=== PATIENT | female | born 1960 | race Caucasian/White ===

== ENCOUNTER 2016-03-08 13:56 | Emergency (ER) | payer BC ==
[2016-03-08 14:41] VITALS: BP 122/80
--- NOTE | 2016-03-08 15:04 | UC ---
Lower Extremity/Ankle HPI - HPI Summary HPI Summary: Pain, redness, swelling, and drainage around the nail of L 1st toe starting about a week ago. Thinks she trimmed the nail too closely. - History of Current Complaint Chief Complaint: UCLowerExtremity Stated Complaint: FOOT COMPLAINT Time Seen by Provider: 03/08/16 14:48 Hx Obtained From: Patient ?: No Onset/Duration: Gradual Onset, Lasting Hours Severity Initially: Mild Severity Currently: Moderate Aggravating Factor(s): Standing, Ambulation Alleviating Factor(s): Rest Able to Bear Weight: Yes - Allergies/Home Medications Allergies/Adverse Reactions: Allergies Allergy/AdvReac Type Severity Reaction Status Date / Time Lisinopril Allergy Dizziness Verified 09/15/15 11:49 PMH/Surg Hx/FS Hx/Imm Hx Endocrine History Of: Reports: Diabetes - For about 23 years. Denies: Thyroid Disease, Hyperthyroidism, Hypothyroidism, Dyslipidemia Cardiovascular History Of: Reports: Hypertension - x 5-6 years Denies: Cardiac Disorders, Pacemaker/ICD, Myocardial Infarction, Congestive Heart Failure, Atrial Fibrillation, Deep Vein Thrombosis, Bleeding Disorders Respiratory History Of: Reports: COPD, Bronchitis, Pneumonia - ~ 5x Denies: Asthma, Pulmonary Embolism GI/ History Of: Reports: Renal Disease - DIALYSIS PATIENT for about 2 weeks 3 years ago. She has "weak kidneys." Denies: Gastroesophageal Reflux, Ulcer, Gastrointestinal Bleed, Gall Bladder Disease, Kidney Stones, Diverticulitis, Urosepsis Neurological History Of: Denies: CVA, Dementia, Seizures Psychological History Of: Denies: Anxiety, Depression, Bipolar Disorder, Schizophrenia, Post Traumatic Stress Disorder Cancer History Of: Denies: Lung Cancer, Colorectal Cancer, Breast Cancer, Prostate Cancer, Cervical Cancer Other History Of: Negative For: HIV, Hepatitis B, Hepatitis C, Anticoagulant Therapy - Surgical History Surgical History: Yes Surgery Procedure, Year, and Place: csection ~20 yrs ago at [facility] [place] - Family History Known Family History: Positive: Cardiac Disease, Hypertension - Father has "disease." Negative: Renal Disease - Social History Lives: With Family Alcohol Use: None Substance Use Type: None Smoking Status (MU): Former Smoker When Did the Patient Quit Smoking/Using Tobacco: 1999 - Immunization History Most Recent Tetanus Shot: ~20 yrs ago Review of Systems Constitutional: Negative Skin: Other - redness, drainage Eyes: Negative ENT: Negative Respiratory: Negative Cardiovascular: Negative Gastrointestinal: Negative Genitourinary: Negative Motor: Negative Neurovascular: Negative Musculoskeletal: Negative Neurological: Negative Psychological: Negative All Other Systems Reviewed And Are Negative: Yes Physical Exam Triage Information Reviewed: Yes Appearance: Well-Appearing, Obese Vital Signs: Initial Vital Signs Temp 96.4 F 03/08/16 14:37 Pulse 94 03/08/16 14:37 Resp 18 03/08/16 14:37 BP 122/80 03/08/16 14:37 Pulse Ox 95 03/08/16 14:37 Vital Signs Reviewed: Yes Eye Exam: Normal Eyes: Positive: Conjunctiva Clear ENT Exam: Normal ENT: Positive: Normal ENT inspection, Hearing grossly normal, Pharynx normal, TMs normal Neck exam: Normal Respiratory Exam: Normal Respiratory: Positive: Chest non-tender, Lungs clear, Normal breath sounds, No respiratory distress, No accessory muscle use Cardiovascular: Positive: Pulses Normal, Murmur:Sys:Grade _?_/ - II Musculoskeletal: Positive: Strength Intact, ROM Intact, Edema @ - L great toe Neurological Exam: Normal Psychological Exam: Normal Skin Exam: Other - swelling, redness L great toe and onto foot. No streaking. Crusted drainage at nail margins. Lower Extremity Course/Dx - Differential Dx/Diagnosis Provider Diagnoses: L ingrown toenail. L great toe cellulitis Discharge - Discharge Plan Condition: Stable Disposition: HOME Prescriptions: DOXYcycline CAP(*) [DOXYcycline 100MG CAP(*)] 100 mg PO BID #20 cap Patient Education Materials: Ingrown Nail (ED), Cellulitis (ED) Referrals: Devyn Carson DPM [Doctor of Podiatric Medicine] - Additional Instructions: Do epsom salts soaks 4-5 times per day and take the antibiotic as prescribed. It is extremely important you have close follow up next week either with your primary care provider or a special assets officer. Foot infections in people with diabetes can lead to severe complications such as hospitalization, sepsis (blood infection), and amputation of toes or even whole feet.
== END 2016-03-08 15:06 | disposition home or self-care (01) ==
LOC: UCEAST 13:56
DX: L60.0 Ingrowing nail (principal); L03.032 Cellulitis of left toe; Z88.8 Allergy status to other drugs, medicaments and biological substances; Z87.891 Personal history of nicotine dependence
CPT/HCPCS: 99211; G0463

== ENCOUNTER 2016-05-08 08:48 | Inpatient (IN) | payer BC, MEDICARE ==
--- NOTE | 2016-05-08 09:49 | RAD ---
INDICATION: Shortness of breath. COMPARISON: Most recent comparison chest x-rays dated September 08, 2015 TECHNIQUE: Single AP portable view of the chest was obtained. FINDINGS: Image quality is compromised due to the relative inferiority of a portable chest x-ray. There is mild cardiomegaly and coarse atherosclerotic calcification overlying the arch of the aorta unchanged from the previous chest x-ray. There is mild engorgement of the pulmonary arterial vasculature. The lungs are grossly clear. There is no evidence of a large pleural effusion. Visualized bones are normal for the patient's age. IMPRESSION: In the correct clinical setting these findings could be compatible with exacerbation of cardiogenic pulmonary edema.
[2016-05-08] MEDS ORDERED: NS 0.9% 1000 ML* 1,000 ML IV ONE (10:03)
[2016-05-08] MEDS: Albuterol/Ipratropium NEB.SOL* Albuterol 2.5 MG/Ipratropium 0.5 MG 3 ML INH SCH ×5 (10:13→23:21)
[2016-05-08 10:28] LABS: Hematocrit 34 % (35-47); Hemoglobin 10.6 g/dl (12.0-16.0); Mean Corpuscular HGB Conc 31 g/dl (31-36); Mean Corpuscular Hemoglobin 30 pg (27-31); Mean Corpuscular Volume 97 fL (80-97); Mean Platelet Volume 8 um3 (7.4-10.4); Red Blood Count 3.48 10^6/ul (4.0-5.4); Red Cell Distribution Width 16 % (10.5-15); White Blood Count 11.1 10^3/ul (3.5-10.8)
[2016-05-08 10:29] LABS: Add Diff/Slide Review? Slide Review Added; Comments Flag Yes
[2016-05-08 10:45] LABS: Albumin 3.4 g/dL (3.2-5.2); BUN/Creatinine Ratio 30.2 (8-20); EGFR African American 22.1 (>60); EGFR Non-African American 17.2 (>60); Globulin 3.9 g/dL (2-4); Potassium 4.4 mmol/L (3.5-5.0); Total Bilirubin 0.4 mg/dL (0.2-1.0); Total Protein 7.3 g/dL (6.4-8.9)
[2016-05-08 11:02] LABS: Troponin I 0.1 ng/mL (<0.04)
[2016-05-08] MEDS ORDERED: Aspirin TAB* 325 MG PO ONE (11:05)
[2016-05-08 12:26] LABS: Eosinophils % 1 % (0-6); Immature Granulocytes 2 % (0-9); Neutrophil % 70 % (38-83); RBC Morphology Normal (Normal)
[2016-05-08] MEDS ORDERED: Dextrose 50% Syringe 50 ML* 25 GM/50 ML SYRINGE IV PUSH PRN (12:44)
[2016-05-08] MEDS ORDERED: Albuterol 2.5 MG/3 ML NEB.SOL* (0.083%) INH PRN (12:44)
[2016-05-08] MEDS ORDERED: Acetaminophen TAB* 325 MG PO PRN (12:44)
[2016-05-08] MEDS ORDERED: NS 0.9% 1000 ML* 1,000 ML IV SCH (12:45)
[2016-05-08] MEDS ORDERED: Ondansetron INJ* 2 MG/ML VIAL IV PRN (13:00)
[2016-05-08 13:19] LABS: EGFR African American 23.3 (>60); EGFR Non-African American 18.1 (>60)
[2016-05-08 13:26] LABS: Troponin I 0.08 ng/mL (<0.04)
[2016-05-08] MEDS: cefTRIAXone VIAL(*) 1,000 MG in NS 0.9% 50 ML* 50 ML IVPB SCH (14:07)
[2016-05-08] MEDS: predniSONE TAB* 20 MG PO SCH (14:11)
[2016-05-08] MEDS: Heparin VIAL(*) 5000 UNITS/ML VIAL (FIVE THOUSAND) SUBCUT SCH ×2 (14:11→21:32)
--- NOTE | 2016-05-08 14:39 | HP ---
HISTORY AND PHYSICAL: DATE OF ADMISSION: 05/08/16 PRIMARY CARE PHYSICIAN: Dr. Abraham. ATTENDING PHYSICIAN WHILE IN THE HOSPITAL: Kathie Bhatt DO* (report dictated by Dk Jay NP). CHIEF COMPLAINT: 1. Cough. 2. Shortness of breath. HISTORY OF PRESENT ILLNESS: Ms. Mantilla is a 56-year-old female patient who comes into the ER today with complaints of shortness of breath, stating that she has not been feeling well over the last 2 to 3 days. She states her breathing has been getting worse. She states she has had some chills. She states she has been coughing, first started out as a dry cough and now she is noticing the cough sounds more full to her, that is what she says, and she feel like her lungs are filling with fluid. She states her was sick with similar symptoms and so was her daughter, both of which she has been around. She states that it hurts to take a deep breath, hurts to cough, particularly in her chest and she states she has been short of breath with exertion. She denied any swelling or edema in the lower extremities and she states to her knowledge her weight has not really changed, although she does not weigh herself daily and she states that she does not have any orthopnea. She can lie flat and sleep at night. It is when she gets up to do something, she is feeling short of breath and she has been coughing. She could hear rattle in her chest and she was concerned and decided to come into the ER today as she was worried that she may have an infection or pneumonia. The patient was evaluated in the ER by Dr. Valadez. There was concern due to her respiratory status she was requiring 3 L of oxygen. Hospitalist service was asked to evaluate for admission. PAST MEDICAL HISTORY: Significant for: 1. Hypertension. 2. Diabetes. 3. CKD. 4. COPD. PAST SURGICAL HISTORY: She has had a dialysis catheter placed in the past. She had a history of and she had the dialysis catheter removed. HOME MEDICATIONS: According to the list from the pharmacy include: 1. Glipizide 10 mg p.o. b.i.d. 2. Catapres 0.1 mg p.o. b.i.d. 3. Demadex 100 mg p.o. b.i.d. 4. Actos 45 mg daily. 5. Lopressor 100 mg p.o. b.i.d. 6. Vitamin D2, 50,000 units p.o. weekly. 7. Lipitor 20 mg daily. 8. Amitriptyline 25 mg p.o. at bedtime. ALLERGIES TO MEDICATIONS: Include LISINOPRIL. FAMILY HISTORY: Mother had pancreatic cancer. Father had a history of MS. SOCIAL HISTORY: She is a former smoker, she quit about 7 years ago, she was a pack a day smoker. She does not drink alcohol. She has 1 child. Surrogate decision maker is her . REVIEW OF SYSTEMS: There is no documented fever. She denied any significant weight change. There was no double vision. There was no ear discharge. She denies having any rhinorrhea. There was a sore throat, but she does not have that now. She denies having any chest pain with the exception when she takes a deep breath. She does admit to dyspnea on exertion. There was no orthopnea. No nocturnal dyspnea. There was no abdominal pain. There was no nausea. No vomiting. No dysuria. No frequency. She denies having any loss of consciousness, no pruritus, had no skin ulcerations. Review of 14 systems completed, all others negative. PHYSICAL EXAMINATION GENERAL: At this time, Ms. Mantilla is a 56-year-old female patient. She is morbidly obese. She is sitting on the edge of the ER stretcher. She does not appear to be in any acute distress. VITAL SIGNS: Blood pressure 109/86, pulse of 90, respirations were 20, O2 sat was 98% on 3 L, temperature 97.6. HEENT: Head is atraumatic, normocephalic. Eyes: EOMs are intact. Sclerae anicteric, not pale. Throat: Oral mucosa appears to be dry. No oropharyngeal erythema. NECK: Supple. LUNGS: She had wheezing noted throughout. She had rhonchi in the upper lobe. She had equal diaphragmatic expansion. HEART: Sounds S1, S2. Regular rate and rhythm. No murmurs, rubs or gallops. ABDOMEN: Soft, flat, nontender. Bowel sounds present. EXTREMITIES: Pulses were 2+ throughout. She had no pitting edema noted. NEUROLOGIC: She is awake, alert. She is oriented x3. Speech is clear. No facial drooping. No gross focal deficits. SKIN: Intact. DIAGNOSTIC STUDIES/LABORATORY DATA: Labs today revealed WBC 11.1, RBC of 3.48 , hemoglobin 10.6, hematocrit 34, platelet count of 256. Sodium was 134, potassium 4.4, chloride of 101, bicarb 25, BUN was 86, creatinine was 2.85 which is right near her baseline from September 2015. Glucose 112, lactic 1.1, calcium 9.0, total bili 0.4, AST 32, ALT 24, alk phos 109. Her troponin was 0.10. Her last troponin was from 2015 and was 0.05. Her BNP was 454, it has been higher in the past. Her albumin was 3.4. Serology was negative for flu. She did have an EKG obtained initially showed a normal sinus rhythm with the rate of 75. No ST elevations or T- wave inversions. A repeat EKG shows a normal sinus rhythm, rate of 101, but she does have PACs after every other beat , but does not appear to be atrial fibrillation. There was a chest x-ray obtained today and on my review, I do not appreciate any obvious infiltrate. There may be some pulmonary edema. Radiology read it as in the correct clinical setting, these findings could be compatible with exacerbation of cardiogenic pulmonary edema. Old medical records were reviewed. ASSESSMENT AND PLAN: Ms. Mantilla is a 56-year-old female patient coming into the ER today with complaints of cold symptoms going on the last couple of days, now getting progressively worse with shortness of breath. She will be admitted under observation status for: 1. Chronic obstructive pulmonary disease exacerbation. I suspect that this is chronic obstructive pulmonary disease exacerbation. I do not think this is pulmonary edema. She has had 2 recent sick contacts. She is wheezing throughout. She has a history of chronic obstructive pulmonary disease and history of smoking. My plan is to go ahead and put her on DuoNeb round the clock , albuterol p.r.n., Dulera, steroids. Put her on azithromycin and ceftriaxone. I will get a legionella urine antigen and strep pneumoniae urine antigen and sputum culture and I have ordered flutter valve for pulmonary toileting. 2. Hypertension. Her blood pressure down here is in the soft side, it is 109/ 86, so I am going to hold the clonidine and cut her metoprolol dose in half and we can slowly reintroduce this and we will follow. 3. Diabetes. She will be on lispro sliding scale. 4. History of lower extremity edema. She takes Demadex but she states she takes it as needed, so we will go ahead and diurese her if need be, but I think she needs a little bit of fluid now. She is on the dry side. 5. Chronic kidney disease. Her creatinine appears to be at baseline. We will monitor this and try to avoid nephrotoxic agents. 6. DVT prophylaxis. She is high risk. She will be placed on heparin subcu. 7. Code status. Full code. 8. Fluids, nutrition. She can have a consistent carb diet. TIME SPENT: Time spent on admission, 60 minutes, greater than half the time was spent [id number] with the patient obtaining my history and physical, other half of the time spent going over the plan of care with the patient and implementing plan of care. I did discuss the plan of care with my attending, Dr. Bhatt, she is in agreement. DK JAY NP CC: Dr. Abraham * [id number]/CPS #: [id number] XIMENA
[2016-05-08] MEDS: Azithromycin IV(*) 500 MG in NS 0.9% 250 ML* 250 ML IVPB SCH (15:40)
[2016-05-08] MEDS: Insulin LISPRO* 1 UNITS UNIT SUBCUT SCH (16:57)
[2016-05-08] MEDS: Mometasone/Formoter 200/5 MDI INH SCH (20:04)
[2016-05-08 20:56] LABS: Urine Bacteria 1+ (Absent); Urine Bilirubin Negative (Negative); Urine Glucose Negative (Negative); Urine Nitrite Negative (Negative)
[2016-05-08] MEDS: Amitriptyline TAB* 25 MG PO SCH (20:57)
[2016-05-08] MEDS: Metoprolol Tartrate TAB* 50 mg PO SCH (20:57)
[2016-05-09] MEDS: Nystatin TOP POWDER* 15 GM BTL TOPICAL SCH ×5 (00:44→20:43)
[2016-05-09] MEDS: Albuterol/Ipratropium NEB.SOL* Albuterol 2.5 MG/Ipratropium 0.5 MG 3 ML INH SCH ×3 (03:17→14:08)
[2016-05-09 06:08] LABS: Hematocrit 32 % (35-47); Hemoglobin 10.2 g/dl (12.0-16.0); Mean Corpuscular HGB Conc 31 g/dl (31-36); Mean Corpuscular Hemoglobin 30 pg (27-31); Mean Corpuscular Volume 96 fL (80-97); Mean Platelet Volume 8 um3 (7.4-10.4); Red Blood Count 3.36 10^6/ul (4.0-5.4); Red Cell Distribution Width 15 % (10.5-15); White Blood Count 12.2 10^3/ul (3.5-10.8)
[2016-05-09 06:09] LABS: Add Diff/Slide Review? Slide Review Added; Comments Flag Yes
[2016-05-09] MEDS: Heparin VIAL(*) 5000 UNITS/ML VIAL (FIVE THOUSAND) SUBCUT SCH ×3 (06:21→20:45)
[2016-05-09 06:25] LABS: BUN/Creatinine Ratio 32.8 (8-20); Calcium 8.8 mg/dL (8.6-10.3); EGFR African American 26.8 (>60); EGFR Non-African American 20.9 (>60); Potassium 4.4 mmol/L (3.5-5.0)
[2016-05-09] MEDS: Atorvastatin* 20 MG TAB PO SCH (08:13)
[2016-05-09] MEDS: Metoprolol Tartrate TAB* 50 mg PO SCH (08:13)
[2016-05-09] MEDS: Aspirin EC Low Dose* 81 MG TAB.EC PO SCH (08:13)
[2016-05-09] MEDS: Mometasone/Formoter 200/5 MDI INH SCH ×2 (08:14→20:12)
[2016-05-09] MEDS: predniSONE TAB* 20 MG PO SCH (08:14)
[2016-05-09] MEDS: Insulin LISPRO* 1 UNITS UNIT SUBCUT SCH ×3 (08:14→18:00)
[2016-05-09] MEDS: cefTRIAXone VIAL(*) 1,000 MG in NS 0.9% 50 ML* 50 ML IVPB SCH (13:14)
--- NOTE | 2016-05-09 14:10 | PN ---
Subjective Date of Service: 05/09/16 Interval History: Patient seen this morning. Says she is feeling much better. SOB has improved but not quite gone. Cough is better. Denies any wheezing. As per nursing she desaturated when ambulating while on O2. Only requires 1L at rest. Family History: Unchanged from Admission Social History: Unchanged from Admission Past Medical History: Unchanged from Admission Objective Active Medications: Acetaminophen (Tylenol Tab*) 650 mg PO Q4H PRN Albuterol (Ventolin 2.5 Mg/3 Ml Neb.Daja*) 2.5 mg INH Q2H PRN Albuterol/Ipratropium (Duoneb (Albuterol 2.5 Mg/Ipratropium 0.5 Mg)) 1 neb INH [id number] AWAKE ASHER Amitriptyline HCl (Elavil Tab*) 25 mg PO BEDTIME ASHER Aspirin (Aspirin Ec Low Dose*) 81 mg PO DAILY [facility] Atorvastatin Calcium (Lipitor*) 20 mg PO DAILY [facility] Dextrose (D50w Syringe 50 Ml*) 12.5 gm IV PUSH .FOR FS < 60 - SS PRN Heparin Sodium (Porcine) (Heparin Vial(*)) 5,000 units SUBCUT Q8HR [facility] Sodium Chloride (Ns 0.9% 1000 Ml*) 1,000 mls @ 100 mls/hr IV PER RATE [facility] Ceftriaxone Sodium 1,000 mg/ (Sodium Chloride) 50 mls @ 200 mls/hr IVPB Q24H [facility] Azithromycin 500 mg/ Sodium (Chloride) 250 mls @ 250 mls/hr IVPB Q24H [facility] Insulin Human Lispro (Humalog*) 0 units SUBCUT AC [facility] Metoprolol Tartrate (Lopressor Tab*) 50 mg PO Q12HR [facility] Mometasone Furoate/Formoterol Fumar (Dulera 200/5 Mdi*) 2 puff INH BID A[facility] Nystatin (Nystatin Top Powder*) 1 applic TOPICAL TID [facility] Ondansetron HCl (Zofran Inj*) 4 mg IV Q6H PRN Prednisone (Deltasone Tab*) 40 mg PO DAILY [facility] Vital Signs 05/08/16 05/08/16 05/08/16 15:28 16:00 16:42 Temperature 97.7 F Pulse Rate 129 93 86 Respiratory 17 16 Rate Blood Pressure 138/28 131/35 (mmHg) O2 Sat by Pulse 96 96 93 Oximetry 05/09/16 05/09/16 05/09/16 03:17 04:10 07:26 Temperature 97.7 F 97.8 F Pulse Rate 75 89 72 Respiratory 16 20 20 Rate Blood Pressure 158/75 149/69 (mmHg) O2 Sat by Pulse 99 95 100 Oximetry Oxygen Devices in Use Now: Nasal Cannula - 1L Appearance: Middle-aged, morbidly obese, F, sitting in bed in NAD Eyes: No Scleral Icterus Ears/Nose/Mouth/Throat: Mucous Membranes Moist Neck: NL Appearance and Movements; NL JVP Respiratory: Symmetrical Chest Expansion and Respiratory Effort, - - Moderate air movement, trace rales in bases, minimal wheezing Cardiovascular: NL Sounds; No Murmurs; No JVD, RRR Abdominal: NL Sounds; No Tenderness; No Distention Lymphatic: No Cervical Adenopathy Extremities: - - B/L LE edema Skin: No Rash or Ulcers Neurological: Alert and Oriented x 3 Result Diagrams: 05/09/16 05:34 05/09/16 05:34 Microbiology and Other Data: Microbiology 05/08/16 20:30 Legionella Urinary Antigen - Final Urine Negative Legionella Streptococcus pneumoniae Ag Screen - Final Negative S. pneumo Antigen Assess/Plan/Problems-Billing Assessment: COPD exacerbation in a 56 yo F with hx of COPD, HTN, DM, CKD - Patient Problems (1) COPD exacerbation Current Visit: Yes Comment: Continue prednisone, nebs, inhalers. Will continue CTX/Azithrmycin for now, procalcitonin is mildly elevated. Wean oxygen. (2) HTN (hypertension) Current Visit: Yes Comment: Resume home doses of Metoprolol and Clonidine (3) Diabetes Current Visit: Yes Comment: HISS (4) Edema Current Visit: Yes Comment: Hold torsemide for now, will stop IVF (5) CKD (chronic kidney disease) Current Visit: Yes Comment: At baseline (6) DVT prophylaxis Current Visit: Yes Comment: Heparin Status and Disposition: Inpatient
[2016-05-09] MEDS: Azithromycin IV(*) 500 MG in NS 0.9% 250 ML* 250 ML IVPB SCH (14:55)
[2016-05-09] MEDS ORDERED: Spiriva Inhaler DEVICE* 1 EACH DEVICE INH ONE (15:00)
[2016-05-09] MEDS: Ropinirole TAB* 0.5 MG TAB PO SCH ×2 (16:55→20:42)
[2016-05-09] MEDS: DOXYcycline CAP(*) 100 MG PO SCH (20:41)
[2016-05-09] MEDS: cloNIDine TAB* 0.1 MG PO SCH (20:41)
[2016-05-09] MEDS: Amitriptyline TAB* 25 MG PO SCH (20:41)
[2016-05-09] MEDS: Metoprolol Tartrate TAB* 100 MG TAB PO SCH (20:42)
[2016-05-09] MEDS: BABY TOPICAL SCH (20:52)
[2016-05-10] MEDS: Heparin VIAL(*) 5000 UNITS/ML VIAL (FIVE THOUSAND) SUBCUT SCH (05:51)
[2016-05-10] MEDS: Mometasone/Formoter 200/5 MDI INH SCH (08:04)
[2016-05-10] MEDS ORDERED: predniSONE TAB* 20 MG PO SCH (09:00)
[2016-05-10] MEDS ORDERED: Tiotropium CAP.INH* CAP.INH/18 MCG INH SCH (09:00)
[2016-05-10] MEDS: DOXYcycline CAP(*) 100 MG PO SCH (09:34)
[2016-05-10] MEDS: Insulin LISPRO* 1 UNITS UNIT SUBCUT SCH (09:34)
[2016-05-10] MEDS: Atorvastatin* 20 MG TAB PO SCH (09:35)
[2016-05-10] MEDS: cloNIDine TAB* 0.1 MG PO SCH (09:35)
[2016-05-10] MEDS: Metoprolol Tartrate TAB* 100 MG TAB PO SCH (09:35)
[2016-05-10] MEDS: Aspirin EC Low Dose* 81 MG TAB.EC PO SCH (09:35)
[2016-05-10] MEDS: Ropinirole TAB* 0.5 MG TAB PO SCH (09:35)
[2016-05-10] MEDS: Nystatin TOP POWDER* 15 GM BTL TOPICAL SCH (09:36)
[2016-05-10] MEDS: BABY TOPICAL SCH (09:36)
[2016-05-10 10:57] VITALS: BP 145/56
--- NOTE | 2016-05-10 10:59 | DCNOTE ---
Patient feeling well this morning. No wheezing, denies SOB, still cough. Desaturated when ambulating but no dyspnea. On exam, lungs CTA B/L, obese, soft, NTND, BS, RRR, s1 and s2 present, no m/g/r , chronic LE edema Will discharge home today with ABX, COPD medications, steroids and home O2. Will need to f/u with PCP.
--- NOTE | 2016-05-11 04:27 | DS ---
CC: Dr. Abraham DISCHARGE SUMMARY: DATE OF ADMISSION: 05/08/16 DATE OF DISCHARGE: 05/10/16 PCP: Dr. Abraham. PRINCIPAL DISCHARGE DIAGNOSES: 1. Chronic obstructive pulmonary disease exacerbation. 2. Community-acquired pneumonia. SECONDARY DIAGNOSES: 1. Hypertension. 2. Diabetes. 3. Chronic kidney disease. DISCHARGE MEDICATION REGIMEN: 1. Albuterol 1 puff inhaled every 4 hours as needed for shortness of breath or wheezing. 2. Cefpodoxime 200 mg by mouth 2 times daily. 3. Doxycycline 100 mg by mouth 2 times daily. 4. Advair 1 puff inhaled 2 times daily. 5. Spiriva 1 capsule inhaled daily. 6. Prednisone 40 mg by mouth daily. 7. Actos 45 mg by mouth daily. 8. Clonidine 0.1 mg by mouth 2 times daily. 9. Atorvastatin 20 mg by mouth daily. 10. Metoprolol tartrate 100 mg by mouth 2 times daily. 11. Glipizide 10 mg by mouth 2 times daily. 12. Amitriptyline 25 mg by mouth at bedtime. 13. Torsemide as prescribed by PCP. 14. Vitamin D2 50,000 units by mouth weekly. STUDIES DONE DURING THE HOSPITALIZATION: Chest x-ray, impression: In the correct clinical setting, findings could be compatible with exacerbation of cardiogenic pulmonary edema. HPI AND HOSPITAL SUMMARY: Please refer to the full history and physical by David Jay NP, for f ull details. Briefly, Ms. Mantilla is a 56-year-old female who presents to the hospital with shortn ess of breath, cough, and chills. On evaluation, the patient was hypoxic and had significant wheezi ng. She had a mild leukocytosis and she was started on antibiotics, steroids, and nebulizers. She had rapid improvement in the symptoms by the following day. She states that her wheezing and shortn ess of breath had fully resolved though had a mild cough. However, she still required a small amount of oxygen and desaturated during ambulation. The following day, she continued to require low level of oxygen with ambulation. She will be discharged home on oxygen, which she states she has been on in the past. She will be discharged home with oral prednisone, oral antibiotics, and new prescript ions for Advair, Spiriva, and albuterol inhaler. The patient will need to follow up with her PCP as an outpatient. TIME SPENT: Total time spent on this discharge 40 minutes. This is the summary of the hospitalization, please see the full medical record for further details. [id number]/[facility] #: [id number]
--- NOTE | 2016-05-11 15:38 | ED ---
Flakito Smith Adam, scribed for Jacob Valadez MD on 05/08/16 at 0932 . Respiratory - HPI Summary HPI Summary: Pt is a 56 year old female presenting with SOB and cough. She states that she started coughing 5 days ago with a dry cough. Over the next couple of days she began to have MARI. The cough has since loosened up but it is still unproductive ; she feels like there is a lot of mucus going down her throat. Pt also c/o chills, generalized myalgia, diarrhea, and sore throat. She reports decreased PO intake over the past 5 days as well. She denies fever, edema, and CP. Her with whom she lives recently had PNA. - History of Current Complaint Chief Complaint: EDShortnessOfBreath Stated Complaint: COUGH /FLU LIKE SYMPTOMS Time Seen by Provider: 05/08/16 09:23 Hx Obtained From: Patient Onset/Duration: Gradual Onset, Lasting Days, Still Present Timing: Constant Initial Severity: Moderate Current Severity: Moderate Pain Intensity: 0 Character: Cough (Nonproductive) Sputum Amount: None Aggravating Factor(s): Exertion Alleviating Factor(s): Nothing Associated Signs and Symptoms: SOB, Chills - Allergy/Home Medications Allergies/Adverse Reactions: Allergies Allergy/AdvReac Type Severity Reaction Status Date / Time Lisinopril Allergy Dizziness Verified 09/15/15 11:49 PMH/Surg Hx/FS Hx/Imm Hx Endocrine/Hematology History: Reports: Hx Diabetes - For about 23 years. Denies: Hx Anticoagulant Therapy, Hx Blood Disorders, Hx Blood Transfusions, Hx Bone Marrow Disease, Hx Systemic Lupus Erythematosus, Hx Sickle Cell Disease , Hx Thyroid Disease, Hx Anemia, Hx Unexplained Bleeding, Other Endocrine/ Hematological Disorders Cardiovascular History: Reports: Hx Hypertension - x 5-6 years Denies: Hx Aneurysm, Hx Angina, Hx Angioplasty, Hx Auto Implanted Cardiovert Defib, Hx Cardiac Arrest, Hx Cardiomegaly, Hx Congenital Heart Disease, Hx Congestive Heart Failure, Hx Coronary Artery Disease, Hx Deep Vein Thrombosis, Hx Hypercholesterolemia, Hx Hypotension, Hx Myocardial Infarction, Hx Pacemaker/ ICD, Hx Peripheral Vascular Disease, Hx Rheumatic Fever, Hx Syncope, Hx Valvular Heart Disease, Other Cardiovascular Problems/Disorders Respiratory History: Reports: Hx Chronic Obstructive Pulmonary Disease (COPD), Hx Pneumonia - ~ 5x, Hx Sleep Apnea Denies: Hx Asthma, Hx Chronic Bronchitis, Hx Cystic Fibrosis, Hx Lung Cancer , Hx Pleural Effusion, Hx Pulmonary Edema, Hx Pulmonary Embolism, Hx Seasonal Allergies, Other Respiratory Problems/Disorders - copd GI History: Denies: Hx Cirrhosis, Hx Crohn's Disease, Hx Gall Bladder Disease, Hx Gastroesophageal Reflux Disease, Hx Gastrointestinal Bleed, Hx Hiatal Hernia, Hx Irritable Bowel, Hx Jaundice, Hx Ulcer, Hx Urosepsis, Other GI Disorders History: Reports: Hx Chronic Renal Failure - not per patient, per H+P, Hx Renal Disease - DIALYSIS PATIENT for about 2 weeks 3 years ago. She has "weak kidneys." Denies: Hx Acute Renal Failure - current dx, Hx Benign Prostatic Hyperplasia , Hx Dialysis, Hx Kidney Infection, Hx Kidney Stones, Other Problems/ Disorders Musculoskeletal History: Reports: Hx Back Problems, Hx Scoliosis, Other Musculoskeletal History - Degenerative Disc Disease Denies: Hx Arthritis, Hx Bursitis, Hx Congenital Bone Abnormalities, Hx Fibromyalgia, Hx Gout, Hx Orthopedic Injury, Hx Osteoporosis, Hx Tendonitis Sensory History: Reports: Hx Contacts or Glasses Denies: Hx Cataracts, Hx Eye Injury, Hx Eye Prosthesis, Hx Glaucoma, Hx Macular Degeneration, Hx Vision Problem, Hx Deafness, Hx Hearing Aid, Hx Hearing Problem, Other Sensory Impairments Opthamlomology History: Reports: Hx Contacts or Glasses Denies: Hx Cataracts, Hx Eye Injury, Hx Eye Prosthesis, Hx Glaucoma, Hx Macular Degeneration, Hx Vision Problem, Other Sensory Impairments Neurological History: Denies: Hx Dementia, Hx Seizures Psychiatric History: Denies: Hx Anxiety, Hx Depression, Hx Schizophrenia, Hx Bipolar Disorder, Hx Substance Abuse - Cancer History Hx Chemotherapy: No - Surgical History Surgery Procedure, Year, and Place: csection ~20 yrs ago at [facility] Hx Anesthesia Reactions: No Infectious Disease History: No Infectious Disease History: Denies: Hx Clostridium Difficile, Hx Hepatitis, Hx Human Immunodeficiency Virus (HIV), Hx of Known/Suspected MRSA, Hx Shingles, Hx Tuberculosis, Hx Known/ Suspected VRE, Hx Known/Suspected VRSA, History Other Infectious Disease, Traveled Outside the [place] in Last 30 Days - Family History Known Family History: Positive: Cardiac Disease, Hypertension - Father has "disease." Negative: Renal Disease - Social History Occupation: Unemployed Lives: With Family - Alcohol Use: None Hx Substance Use: No Substance Use Type: Reports: None Hx Tobacco Use: Yes Smoking Status (MU): Former Smoker Review of Systems Positive: Chills. Negative: Fever Negative: Erythema Positive: Sore Throat Negative: Chest Pain Positive: Shortness Of Breath, Cough Positive: Diarrhea, Other - Decreased PO intake. Negative: Abdominal Pain, Vomiting, Nausea Negative: dysuria, hematuria Positive: Myalgia - Generalized. Negative: Edema Negative: Rash All Other Systems Reviewed And Are Negative: Yes Physical Exam - Summary Physical Exam Summary: Constitutional: Well-developed, Well-nourished, Alert. (-) Distressed Skin: Warm, Dry HENT: Normocephalic; Atraumatic Eyes: Conjunctiva normal Neck: Musculoskeletal ROM normal neck. (-) JVD, (-) Stridor, (-) Tracheal deviation Cardio: Rhythm regular, rate normal, Heart sounds normal; Intact distal pulses; The pedal pulses are 2+ and symmetric. Radial pulses are 2+ and symmetric. (-) Murmur Pulmonary/Chest wall: Wheezes and rhonchi. Rhonchi worse in the left lower lung field. Abd: Soft, (-) Tenderness, (-) Distension, (-) Guarding, (-) Rebound Musculoskeletal: (-) Edema Lymph: (-) Cervical adenopathy Neuro: Alert, Oriented x3 Psych: Mood and affect Normal Triage Information Reviewed: Yes Vital Signs On Initial Exam: Initial Vitals Temp Pulse Resp BP Pulse Ox 97.6 F 91 20 156/42 90 05/08/16 08:50 05/08/16 08:50 05/08/16 08:50 05/08/16 08:50 05/08/16 08:50 Vital Signs Reviewed: Yes Diagnostics - Vital Signs Vital Signs Temp Pulse Resp BP Pulse Ox 05/08/16 08:50 97.6 F 91 20 156/42 90 - Laboratory Result Diagrams: 05/08/16 10:00 05/08/16 10:00 Lab Statement: Any lab studies that have been ordered have been reviewed, and results considered in the medical decision making process. - Radiology CXR Radiology Interpretation Completed By: Radiologist - IMPRESSION: In the correct clinical setting these findings could be compatible with exacerbation of cardiogenic pulmonary edema. - EKG 09:45 Cardiac Rate: NL - 75 BPM EKG Rhythm: Sinus Rhythm EKG Interpretation: No STEMI - Additional Comments Diagnostic Additional Comments: Troponin I - 0.10 Influenza A (Rapid) - Negative Influenza B (Rapid) - Negative Disposition - Course Course Of Treatment: Believe elevated troponin to be related to influenza or CHF rather than acute [place]. - Diagnoses Provider Diagnoses: Congestive heart failure, Elevated troponin - Physician Notifications Discussed Care Of Patient With: Hospitalist at 11:13. Patient will be admitted. Discharge - Discharge Plan Condition: Stable Disposition: ADMITTED TO [facility] documentation as recorded by the Flakito avalos Adam accurately reflects the service I personally performed and the decisions made by , Jacob Valadez MD.
== END 2016-05-10 12:30 | disposition home or self-care (01) | DRG 140 ==
LOC: ED 08:48 → MEDTELE 11:23 → OBSVTOIN 05-09 14:20
PROVIDERS: ADMIT Hospitalist; ATTEND Hospitalist
DX: J44.1 Chronic obstructive pulmonary disease with (acute) exacerbation (principal); J18.9 Pneumonia, unspecified organism; E11.22 Type 2 diabetes mellitus with diabetic chronic kidney disease; Z99.81 Dependence on supplemental oxygen; Z68.44 Body mass index [BMI] 60.0-69.9, adult; I12.9 Hypertensive chronic kidney disease with stage 1 through stage 4 chronic kidney disease, or unspecified chronic kidney disease; E66.01 Morbid (severe) obesity due to excess calories; R60.0 Localized edema; R09.02 Hypoxemia; N18.9 Chronic kidney disease, unspecified; Z87.891 Personal history of nicotine dependence; Z79.84 Long term (current) use of oral hypoglycemic drugs; Z88.8 Allergy status to other drugs, medicaments and biological substances; Z28.21 Immunization not carried out because of patient refusal; Z82.49 Family history of ischemic heart disease and other diseases of the circulatory system
CPT/HCPCS: 36415; 71010; 80048; 80053; 81003; 81015; 82565; 83605; 83880; 84145; 84484; 84520; 85025; 85610; 85730; 87040; 87086; 87502; 87899; 93005; 94640; 94760; A9270-GY; G0378; J0456; J0696; J1644; J7512

== ENCOUNTER 2016-08-14 11:40 | Inpatient (IN) | payer BC, MEDICARE ==
[2016-08-14] MEDS ORDERED: Albuterol HFA INHALER* 8 gm MDI INH PRN (14:14)
[2016-08-14] MEDS ORDERED: Vancomycin per Pharmacy* NOTE FOLLOW UP PRN (14:33)
[2016-08-14] MEDS ORDERED: Dextrose 50% Syringe 50 ML* 25 GM/50 ML SYRINGE IV PUSH PRN (14:37)
[2016-08-14] MEDS ORDERED: Torsemide TAB* 100 MG PO SCH (15:00)
[2016-08-14 15:01] LABS: Hematocrit 33 % (35-47); Hemoglobin 10.6 g/dl (12.0-16.0); Mean Corpuscular HGB Conc 32 g/dl (31-36); Mean Corpuscular Hemoglobin 32 pg (27-31); Mean Corpuscular Volume 98 fL (80-97); Mean Platelet Volume 8 um3 (7.4-10.4); Red Blood Count 3.37 10^6/ul (4.0-5.4); Red Cell Distribution Width 15 % (10.5-15); White Blood Count 10.6 10^3/ul (3.5-10.8)
[2016-08-14 15:17] LABS: Albumin 3.4 g/dL (3.2-5.2); BUN/Creatinine Ratio 35.7 (8-20); C Reactive Protein 13.88 mg/L (< 5.00); Calcium 9.3 mg/dL (8.6-10.3); EGFR African American 26.8 (>60); EGFR Non-African American 20.9 (>60); Globulin 3.9 g/dL (2-4); Potassium 4.6 mmol/L (3.5-5.0); Total Bilirubin 0.3 mg/dL (0.2-1.0); Total Protein 7.3 g/dL (6.4-8.9)
[2016-08-14] MEDS: Heparin VIAL(*) 5000 UNITS/ML VIAL (FIVE THOUSAND) SUBCUT SCH ×2 (15:47→20:31)
[2016-08-14] MEDS: Cefepime(*) 1 GM in NS 0.9% 50 ML* 50 ML IVPB SCH (15:47)
[2016-08-14] MEDS: metroNIDAZOLE IV 500 MG/100ML* 500 MG/100 ML BAG IVPB SCH (16:45)
[2016-08-14] MEDS: Nystatin TOP POWDER* 15 GM BTL TOPICAL SCH ×2 (16:49→20:31)
[2016-08-14] MEDS: Insulin LISPRO* 1 UNITS UNIT SUBCUT SCH (16:55)
[2016-08-14] MEDS ORDERED: Vancomycin(*) 1,500 MG in NS 0.9% 250 ML* 250 ML IVPB ONE (17:00)
--- NOTE | 2016-08-14 19:12 | PN ---
Progress Note - Progress Note Date of Service: 08/14/16 SOAP: Subjective: I saw Ms. Mantilla in Wound Center this morning for follow up of her left great toe ulcer and noted redness and drainage from the ulcer. She also has not been able to keep her Wound Center visits and appropriate work up has not been able to be completed. She has been admitted for IV antibiotics for treatment of her infected left great toe. Objective: [] Temp Pulse Resp BP Pulse Ox 96.6 F 72 16 149/99 96 08/14/16 16:03 08/14/16 15:50 08/14/16 15:50 08/14/16 15:50 08/14/16 15:50 Laboratory Results - last 24 hr 08/14/16 08/14/16 08/14/16 14:46 14:46 14:46 WBC 10.6 RBC 3.37 L Hgb 10.6 L Hct 33 L MCV 98 H MCH 32 H MCHC 32 RDW 15 Plt Count 282 MPV 8 Neut % (Auto) 78.5 Lymph % (Auto) 9.4 L Noble % (Auto) 6.6 Eos % (Auto) 4.8 Baso % (Auto) 0.7 Absolute Neuts (auto) 8.3 H Absolute Lymphs (auto) 1.0 Absolute Monos (auto) 0.7 Absolute Eos (auto) 0.5 Absolute Basos (auto) 0.1 Absolute Nucleated RBC 0.02 Nucleated RBC % 0.2 Sodium 139 Potassium 4.6 Chloride 108 Carbon Dioxide 23 Anion Gap 8 BUN 86 H Creatinine 2.41 H Est GFR ( Amer) 26.8 Est GFR (Non-Af Amer) 20.9 BUN/Creatinine Ratio 35.7 H Glucose 143 H Lactic Acid 0.6 Calcium 9.3 Total Bilirubin 0.30 AST 12 L ALT 8 Alkaline Phosphatase 103 C-Reactive Protein 13.88 H Total Protein 7.3 Albumin 3.4 Globulin 3.9 Albumin/Globulin Ratio 0.9 L Assessment: Non-healing ulcer left great toe with infection. Renal insufficiency Plan: IV antibiotics ID consult-discussed with Dr. Joiner-will need work-up to rule out osteomyelitis. Vascular evaluation--??CTA after renal evaluation. Possible MRA. Discussed with Dr. Hook Local wound care-orders written.
[2016-08-14] MEDS: Amitriptyline TAB* 25 MG PO SCH (20:30)
[2016-08-14] MEDS: cloNIDine TAB* 0.1 MG PO SCH (20:30)
[2016-08-14] MEDS: Metoprolol Tartrate TAB* 100 MG TAB PO SCH (20:30)
[2016-08-14] MEDS: Atorvastatin* 20 MG TAB PO SCH (20:30)
--- NOTE | 2016-08-14 23:26 | HP ---
CC: Dr. Abraham * HISTORY AND PHYSICAL: DATE OF ADMISSION: 08/14/16 PRIMARY CARE PHYSICIAN: Dr. Abraham. CHIEF COMPLAINT: Worsening left great toe ulcer. HISTORY OF PRESENT ILLNESS: Ms. Mantilla is a 56-year-old female with past medical history of hypertension, diabetes, CKD stage 4, COPD, and morbid obesity who presents to the hospital with worsening left great toe wound. The patient states her symptoms began in February initially with an ingrown toenail. She states she was on a course of antibiotics early on and things seemed to be improving. However, she states a few months ago, her dropped a jar on her toe and the wound worsened. She has been following in the wound clinic for the past few weeks and has been seen by Dr. Boswell there. On 07/17/16, she had x-rays of the toe and foot that did not show any clear evidence of osteomyelitis. She also had ABIs attempted; however, due to her obesity, these were inaccurate. Over the past few weeks despite being on oral Augmentin, her wounds have worsened. She saw Dr. Boswell in wound clinic today and he was concerned that this was not going to heal on its own as an outpatient. He did some debridement in the wound clinic and sent her to the hospital for IV antibiotics, further imaging, and ID consultation. The patient states that the toe does hurt. She has noticed some discharge in the past few days. She states it looks like pus and it has been malodorous. She denies any fever or chills. No chest pain, abdominal pain, nausea, vomiting. No dysuria. She has had good p.o. intake. She states that she does not check her sugars regularly at home, but she knows that her sugars have been controlled because she has not developed a yeast infection, which usually happens. The patient suffered significant kidney injury in 2011 and was temporarily on hemodialysis, but has been off since; however, continues to have chronic kidney disease. PAST MEDICAL HISTORY: Hypertension, super morbid obesity, diabetes, CKD, COPD. PAST SURGICAL HISTORY: HD cath placement and removal, . HOME MEDICATIONS: 1. Atorvastatin 20 mg by mouth at bedtime. 2. Amitriptyline 25 mg by mouth at bedtime. 3. Actos 45 mg by mouth daily. 4. Metoprolol tartrate 100 mg by mouth 2 times daily. 5. Albuterol 1 puff inhaled every 4 hours as needed for shortness of breath or wheezing. 6. Augmentin 875 mg by mouth 2 times daily. 7. Ergocalciferol 21744 units by mouth weekly. 8. Collagenase 1 application topical daily. 9. Clonidine 0.1 mg by mouth at bedtime. 10. Torsemide 100 mg by mouth daily. The patient states she has been off of this for a few weeks now. 11. Glipizide 10 mg by mouth 3 times daily. ALLERGIES: The patient has an allergy to LISINOPRIL cannot recall what it is. FAMILY HISTORY: Significant for mother with pancreatic cancer. Father with [place]. SOCIAL HISTORY: The patient quit smoking 7 years ago. Smoked a half pack per day for 10 to 15 years. Denies any alcohol or illicit drug use. REVIEW OF SYSTEMS: A 12-point review of systems negative except for that as noted in the HPI. PHYSICAL EXAMINATION GENERAL: The patient is a middle aged female, super morbidly obese, sitting in bed, in no apparent distress. VITAL SIGNS: On admission, temperature 96.2, heart rate of 73, respiratory rate of 16, O2 saturation 100% on room air, blood pressure 162/67. HEENT: Head normocephalic, atraumatic. Eyes: Anicteric sclerae. Pupils equal , round, reactive to light and accommodation. ENT: Moist mucous membranes. NECK: No cervical adenopathy. LUNGS: Clear to auscultation bilaterally. No wheezes, rales or rhonchi. CARDIOVASCULAR: Regular rate and rhythm. S1, S2 present. Slight systolic ejection murmur. ABDOMEN: Obese, soft, nontender, nondistended. Bowel sounds positive. EXTREMITIES: The patient with bilateral lower extremity edema. Chronic right lower extremity skin changes. NEUROLOGIC: The patient is alert and oriented x3. No focal neurological deficits. SKIN: Left great toe was just debrided and has been redressed. I did not take it down; however, there is a picture from the wound clinic taken that shows large necrotic ulceration on the medial aspect of the great toe. ASSESSMENT AND PLAN: A nonhealing left great toe ulcer with likely contribution from diabetes in a 56-year-old female with past medical history of super morbid obesity, hypertension, diabetes, chronic kidney disease, and chronic obstructive pulmonary disease. 1. Nonhealing left great toe ulcer. The patient was sent in from wound clinic. Dr. Joiner has been consulted and will evaluate the patient tomorrow. Surgery will continue to follow. For now, I will put the patient on vancomycin, cefepime and Flagyl. We will order blood cultures as well as CBC, CRP, and a lactate. We will need to try to determine the best way to go about imaging. Certainly to figure out the best way to go about determining patency in the presence of arterial disease in the patient's leg. Her creatinine makes a CT with contrast contraindicated and we can consider MRI with contrast; however, this may also be risky in this patient with stage 4 chronic kidney disease. Her last GFR was around 20. I am waiting to here back from Dr. Hook over his input over what imaging study may be best. 2. Hypertension. Continue home clonidine, metoprolol tartrate. 3. Chronic kidney disease. The patient's baseline creatinine seems to be somewhere in the 2 range, although has fluctuated over the past year or so. BMP is pending at this time. 4. Lower extremity edema. We will hold on the patient's torsemide for now until we are able to check her renal function. 5. Chronic obstructive pulmonary disease. The patient is on albuterol inhaler p.r.n., which we will continue here. She has no wheezing. She is not requiring any oxygen. 6. Diabetes. We will check a hemoglobin A1c. Start with Humalog insulin sliding scale, although the patient may need additional long acting coverage. We will monitor her sugars a.c. and h.s. 7. DVT prophylaxis. Heparin subcu. 8. Code status. The patient is a full code. TIME SPENT: Total time spent on this admission 45 minutes with over half the time spent [id number] with the patient in counseling and coordinating care. [id number]/[facility] #: [id number] XIMENA
[2016-08-15] MEDS: metroNIDAZOLE IV 500 MG/100ML* 500 MG/100 ML BAG IVPB SCH ×4 (00:20→22:19)
[2016-08-15] MEDS ORDERED: Acetaminophen TAB* 325 MG ONE (01:20)
[2016-08-15] MEDS: Cefepime(*) 1 GM in NS 0.9% 50 ML* 50 ML IVPB SCH ×2 (03:53→15:55)
[2016-08-15] MEDS: Heparin VIAL(*) 5000 UNITS/ML VIAL (FIVE THOUSAND) SUBCUT SCH ×3 (05:13→21:18)
[2016-08-15] MEDS ORDERED: Vancomycin Random Level* NOTE FOLLOW UP ONE (06:00)
[2016-08-15 07:50] LABS: EGFR African American 29.2 (>60); EGFR Non-African American 22.7 (>60)
[2016-08-15 08:01] LABS: Vancomycin Random 14.5 mcg/mL
[2016-08-15] MEDS ORDERED: Vancomycin 1500 MG IV - x ONCE IVPB ONE ×2 (09:30)
[2016-08-15] MEDS: Metoprolol Tartrate TAB* 100 MG TAB PO SCH ×2 (10:21→21:14)
[2016-08-15] MEDS: Insulin LISPRO* 1 UNITS UNIT SUBCUT SCH ×3 (10:22→18:29)
[2016-08-15] MEDS: Nystatin TOP POWDER* 15 GM BTL TOPICAL SCH ×3 (10:23→21:16)
--- NOTE | 2016-08-15 13:58 | PN ---
Subjective Date of Service: 08/15/16 Interval History: Patient seen this morning. Reports no changes. Pain in the toe only present if not elevated. No fever or chills. Wants to go home. Family History: Unchanged from Admission Social History: Unchanged from Admission Past Medical History: Unchanged from Admission Objective Active Medications: Acetaminophen (Tylenol Tab*) 650 mg PO Q6H PRN Albuterol (Ventolin Hfa Inhaler*) 1 puff INH Q4H PRN Amitriptyline HCl (Elavil Tab*) 25 mg PO BEDTIME ASHER Atorvastatin Calcium (Lipitor*) 20 mg PO BEDTIME ASHER Clonidine HCl (Catapres Tab*) 0.1 mg PO BEDTIME ASHER Dextrose (D50w Syringe 50 Ml*) 12.5 gm IV PUSH .FOR FS < 60 - SS PRN Heparin Sodium (Porcine) (Heparin Vial(*)) 5,000 units SUBCUT Q8HR ASHER Cefepime HCl 1 gm/ Sodium (Chloride) 50 mls @ 100 mls/hr IVPB Q12H ASHER Metronidazole/Sodium Chloride (Flagyl 500 Mg Ivpb*) 500 mg in 100 mls @ 100 mls /hr IVPB Q8H ASHER Insulin Human Lispro (Humalog*) 0 - 15 units SUBCUT AC ASHER Metoprolol Tartrate (Lopressor Tab*) 100 mg PO BID ASHER Nystatin (Nystatin Top Powder*) 1 applic TOPICAL TID ASHER Pharmacy Consult (Vancomycin Per Pharmacy*) 1 note FOLLOW UP . PRN Pharmacy Consult (Vancomycin Random Level*) 1 note FOLLOW UP ONCE ONE Vital Signs 08/14/16 08/14/16 08/14/16 13:54 15:50 16:03 Temperature 96.2 F 96.6 F Pulse Rate 73 72 Respiratory 16 16 Rate Blood Pressure 162/67 149/99 (mmHg) O2 Sat by Pulse 100 96 Oximetry 08/14/16 08/14/16 08/14/16 19:49 20:00 20:08 Temperature Pulse Rate 237 Respiratory 16 18 Rate Blood Pressure 145/95 (mmHg) O2 Sat by Pulse 100 Oximetry 08/14/16 08/15/16 23:15 03:26 Temperature 97.7 F 98.2 F Pulse Rate 65 66 Respiratory 18 18 Rate Blood Pressure 125/41 128/52 (mmHg) O2 Sat by Pulse 94 91 Oximetry Oxygen Devices in Use Now: None Appearance: Obese, middle-aged, F, laying in bed in NAD Eyes: No Scleral Icterus Ears/Nose/Mouth/Throat: Mucous Membranes Moist Neck: NL Appearance and Movements; NL JVP Respiratory: Symmetrical Chest Expansion and Respiratory Effort, Clear to Auscultation Cardiovascular: NL Sounds; No Murmurs; No JVD, RRR Abdominal: NL Sounds; No Tenderness; No Distention Lymphatic: No Cervical Adenopathy Extremities: - - B/L LE edema, chronic RLE skin changes Skin: - - Toe dressed, did not take down dressing today Neurological: Alert and Oriented x 3 Result Diagrams: 08/14/16 14:46 08/15/16 07:17 Assess/Plan/Problems-Billing Assessment: Non-healing L great toe ulcer in a 56 yo F with hx of morbid obesity, DM, HTN, CKD and COPD - Patient Problems (1) Diabetic toe ulcer Current Visit: Yes SNOMED Code(s): 59426706 Comment: WBC normal, CRP actually fairly low. ID consult pending, will continue broad-spectrum ABx for now. Surgery following. Spoke with Dr. Hook who recommended MR of the lower extremity with time of flight w/runoff as an initial vascular work-up due to the patient's CKD. Appreciate surgery assistance. (2) HTN (hypertension) Current Visit: No Comment: Continue Metoprolol and Clonidine (3) CKD (chronic kidney disease) Current Visit: No Comment: At baseline (4) Diabetes Current Visit: No Comment: HISS. HbA1c is 6.9% (5) Edema Current Visit: No Comment: Hold torsemide for now (6) COPD (chronic obstructive pulmonary disease) Current Visit: Yes Comment: Continue prn albuterol (7) DVT prophylaxis Current Visit: No Status: Acute Code(s): GFO6497 - SNOMED Code(s): 474478260 Comment: Heparin Status and Disposition: Inpatient for vascular work-up and IV ABx
[2016-08-15] MEDS ORDERED: Torsemide TAB* 100 MG PO ONE (16:48)
[2016-08-15] MEDS: Bacitracin OINTMENT* 1 TUBE TOPICAL SCH (18:33)
[2016-08-15] MEDS: cloNIDine TAB* 0.1 MG PO SCH (21:14)
[2016-08-15] MEDS: Amitriptyline TAB* 25 MG PO SCH (21:14)
[2016-08-15] MEDS: Atorvastatin* 20 MG TAB PO SCH (21:14)
[2016-08-15] MEDS: Acetaminophen TAB* 325 MG PO PRN (23:08)
[2016-08-16] MEDS: Cefepime(*) 1 GM in NS 0.9% 50 ML* 50 ML IVPB SCH ×2 (03:00→15:19)
[2016-08-16 05:57] LABS: Vancomycin Random 22.6 mcg/mL
[2016-08-16] MEDS ORDERED: Vancomycin Random Level* NOTE FOLLOW UP ONE (06:00)
[2016-08-16] MEDS: Heparin VIAL(*) 5000 UNITS/ML VIAL (FIVE THOUSAND) SUBCUT SCH ×3 (06:27→22:13)
--- NOTE | 2016-08-16 08:18 | RAD ---
Edited for charges. INDICATION: Left great toe ulcer in a vasculopath COMPARISON: Ultrasound MALA/PVR dated July 17, 2016 that was of limited diagnostic utility due to the patient's body habitus and intolerance of the vascular pressure cuffs. TECHNIQUE: A 3-D time of flight magnetic resonance angiogram from the abdominal aorta to the bilateral pedal arteries was obtained without injection of intravascular contrast. Images were reconstructed in the maximum intensity projection format. FINDINGS: Evaluation is limited due to the relative inferiority of noncontrast MR angiography and the patient's large body habitus which prevented use of the standard peripheral vascular coil. The infrarenal abdominal aorta is normal in morphology and caliber. There is no pathologic aneurysmal dilatation or evidence of dissection. Bilaterally the common iliac arteries are adequately patent. There is atherosclerosis causing high-grade stenosis at the proximal portion of the left internal iliac artery at the left iliac bifurcation. The external iliac arteries are patent providing in- line flow to the bilateral common femoral arteries. Right lower extremity: There is patent in-line flow from the common femoral artery into the superficial femoral artery and to the popliteal artery. Evaluation becomes highly limited at the infrapopliteal arterial segment. There appears to be patent in-line flow to the origin of the anterior tibial artery and tibioperoneal trunk. The anterior tibial artery appears to provide the dominant in-line flow beyond the level of the ankle with flow signal seen in the proximal portion of the dorsalis pedis artery. Both the peroneal and posterior tibial arteries become extremely diminutive beyond the distal half of the right lower leg. Left lower extremity: The left common femoral artery is adequately patent. At the femoral bifurcation there is narrowing of the left superficial femoral artery before the superficial femoral artery exhibits absence of flow signal (image 28 through 21) for a length of approximately 2.4 cm according to slice thickness calculation. Distally the superficial femoral artery fills by collateralized flow and there is in-line flow throughout the length of the left SFA distally into the popliteal artery. Evaluation of the tibial peroneal trunk and proximal most portions of the left infrapopliteal arteries is limited due to inadequate imaging quality. More distally the left anterior tibial artery appears to provide dominant flow into the dorsalis pedis artery, but there is likely diminutive in-line flow provided by the posterior tibial artery as well. The peroneal artery is not seen beyond the distal half of the left lower leg. IMPRESSION: Highly limited examination due to the relative inferiority of noncontrast MR angiography and due to the patient's body habitus which prevented utilization of a standard lower extremity peripheral vascular coil. The following are the most severe and/or clinically relevant vascular findings: * There appears to be a short segment occlusion of the proximal left superficial femoral artery just beyond the bifurcation measuring approximately 2.4 cm in length before the left SFA fills by reconstituted flow. * There is reliable determination of in-line arterial runoff provided by the anterior tibial arteries bilaterally. There is little to no signal demonstrated by the distal bilateral peroneal and posterior tibial arteries. MTDD
[2016-08-16] MEDS: Insulin LISPRO* 1 UNITS UNIT SUBCUT SCH ×3 (08:58→16:55)
[2016-08-16] MEDS: metroNIDAZOLE IV 500 MG/100ML* 500 MG/100 ML BAG IVPB SCH ×3 (08:59→22:14)
[2016-08-16] MEDS: Metoprolol Tartrate TAB* 100 MG TAB PO SCH ×2 (10:28→20:26)
[2016-08-16] MEDS: Nystatin TOP POWDER* 15 GM BTL TOPICAL SCH ×3 (10:29→20:31)
[2016-08-16] MEDS: Bacitracin OINTMENT* 1 TUBE TOPICAL SCH (10:29)
[2016-08-16] MEDS ORDERED: Torsemide TAB* 100 MG PO ONE (11:19)
--- NOTE | 2016-08-16 11:25 | PN ---
Subjective Date of Service: 08/16/16 Interval History: Patient seen this morning. Frustrated she is still here. Says she had some UOP with torsemide but not as much as usually does at home, says she takes 100 mg BID at home (when she complies). No fever or chills. Family History: Unchanged from Admission Social History: Unchanged from Admission Past Medical History: Unchanged from Admission Objective Active Medications: Acetaminophen (Tylenol Tab*) 650 mg PO Q6H PRN Albuterol (Ventolin Hfa Inhaler*) 1 puff INH Q4H PRN Amitriptyline HCl (Elavil Tab*) 25 mg PO BEDTIME ASHER Atorvastatin Calcium (Lipitor*) 20 mg PO BEDTIME ASHER Bacitracin (Bacitracin Ointment*) 1 applic TOPICAL DAILY ASHER Clonidine HCl (Catapres Tab*) 0.1 mg PO BEDTIME ASHER Dextrose (D50w Syringe 50 Ml*) 12.5 gm IV PUSH .FOR FS < 60 - SS PRN Heparin Sodium (Porcine) (Heparin Vial(*)) 5,000 units SUBCUT Q8HR ASHER Cefepime HCl 1 gm/ Sodium (Chloride) 50 mls @ 100 mls/hr IVPB Q12H ASHER Metronidazole/Sodium Chloride (Flagyl 500 Mg Ivpb*) 500 mg in 100 mls @ 100 mls /hr IVPB Q8H ASHER Insulin Human Lispro (Humalog*) 0 - 15 units SUBCUT AC ASHER Metoprolol Tartrate (Lopressor Tab*) 100 mg PO BID ASHER Nystatin (Nystatin Top Powder*) 1 applic TOPICAL TID ASHER Pharmacy Consult (Vancomycin Per Pharmacy*) 1 note FOLLOW UP . PRN Vital Signs 08/15/16 08/15/16 08/15/16 11:39 15:46 19:52 Temperature 98.3 F 98.5 F 98.3 F Pulse Rate 77 70 80 Respiratory 20 16 Rate Blood Pressure 117/44 158/86 153/63 (mmHg) O2 Sat by Pulse 94 88 99 Oximetry 08/16/16 08/16/16 07:43 08:00 Temperature 98.1 F Pulse Rate 67 Respiratory 15 18 Rate Blood Pressure 148/53 (mmHg) O2 Sat by Pulse 95 Oximetry Oxygen Devices in Use Now: None Appearance: Middle-aged, obese, F, laying in bed in NAD Eyes: No Scleral Icterus Ears/Nose/Mouth/Throat: Mucous Membranes Moist Neck: NL Appearance and Movements; NL JVP Respiratory: Symmetrical Chest Expansion and Respiratory Effort, Clear to Auscultation Cardiovascular: NL Sounds; No Murmurs; No JVD, RRR Abdominal: NL Sounds; No Tenderness; No Distention Lymphatic: No Cervical Adenopathy Extremities: - - B/L LE edema Skin: - - L toe dressing just changed, did not take down dressing Neurological: Alert and Oriented x 3 Result Diagrams: 08/14/16 14:46 08/16/16 05:15 Microbiology and Other Data: Microbiology 08/14/16 14:46 Aerobic Blood Culture - Preliminary Blood Venous No Growth Day 1 Anaerobic Blood Culture - Preliminary No Growth Day 1 Assess/Plan/Problems-Billing Assessment: Non-healing L great toe ulcer in a 56 yo F with hx of morbid obesity, DM, HTN, CKD and COPD - Patient Problems (1) Diabetic toe ulcer Current Visit: Yes SNOMED Code(s): 65243802 Comment: WBC normal, CRP actually fairly low. ID consult pending, will continue broad-spectrum ABx for now. Surgery following, appreciate their assistance. MRA (limited exam) of the LLE shows proximal L SFA occlusion with distal reconstitution of flow, little arterial run off signal in distal B/L peroneal and posterior tibial arteries. Spoke with Dr. Hook who states that is likely something he or Dr. Sanchez could intervene on, an option would be to consider CO2 as a contrast agent to try to avoid any further kidney injury. Will order MRI of the foot to eval for osteo. (2) HTN (hypertension) Current Visit: No Comment: Continue Metoprolol and Clonidine (3) CKD (chronic kidney disease) Current Visit: No Comment: At baseline (4) Diabetes Current Visit: No Comment: HISS. HbA1c is 6.9% (5) Edema Current Visit: No Comment: Resumed Torsemide at 100 mg daily for now, monitor BMP daily (6) COPD (chronic obstructive pulmonary disease) Current Visit: Yes Comment: Continue prn albuterol. Has needed O2 intermittently. Has ATC oxyen at home which she rarely uses. (7) DVT prophylaxis Current Visit: No Status: Acute Code(s): [id number] - SNOMED Code(s): 527136696 Comment: Heparin Status and Disposition: Inpatient for vascular work-up and IV ABx
--- NOTE | 2016-08-16 11:30 | PN ---
Progress Note - Progress Note Date of Service: 08/16/16 SOAP: Subjective: [ She has less pain in the left foot today She wants to go home Objective: Temp Pulse Resp BP Pulse Ox 98.1 F 67 18 148/53 95 08/16/16 07:43 08/16/16 07:43 08/16/16 08:00 08/16/16 07:43 08/16/16 07:43 PEX: Left foot with slight erythema over the medial dorsal area. Ulcer on the left medial great toe with black eschar overlying entire area with a small amount of serous drainage evident. Slight odor but no purulence. Dressing changed with nurse. Laboratory Results - last 24 hr 08/15/16 08/15/16 08/15/16 11:57 16:41 21:13 BUN Creatinine Est GFR ( Amer) Est GFR (Non-Af Amer) POC Glucose (mg/dL) 169 H 145 H 151 H Random Vancomycin 08/16/16 08/16/16 05:15 08:17 BUN 89 H Creatinine 2.40 H Est GFR ( Amer) 27.0 Est GFR (Non-Af Amer) 21.0 POC Glucose (mg/dL) 142 H Random Vancomycin 22.6 MRA reviewed--not an optimal study but does appear to have short segment left SFA occlusion; difficult to evaluate distal calf vessels but distal SFA and tibeo-peroneal trunk appears to be patent. Assessment: Non healing ulcer left great toe with cellulitis and gangrene DM, CRF, obesity Plan: Continue IV anbx and wound care Review MRA with Dr. Hook--?? option of intervention MRI of foot to rule out osteomyelitis Dr. Joiner from [place] to see today. Discussed with Dr. Loya
[2016-08-16] MEDS ORDERED: Vancomycin(*) 1,000 MG in NS 0.9% 250 ML* 250 ML IVPB SCH (16:30)
[2016-08-16] MEDS: Amitriptyline TAB* 25 MG PO SCH (20:26)
[2016-08-16] MEDS: cloNIDine TAB* 0.1 MG PO SCH (20:26)
[2016-08-16] MEDS: Atorvastatin* 20 MG TAB PO SCH (20:26)
[2016-08-16] MEDS: Acetaminophen TAB* 325 MG PO PRN (20:29)
--- NOTE | 2016-08-16 22:20 | RAD ---
Indication: Nonhealing wound LEFT great toe. Peripheral vascular disease. Assess for osteomyelitis. Comparison: July 17, 2016 radiographs. Technique: Secure-24a 1.5 Sonia [id number] with GEM suite. Multiplanar T1 and inversion recovery series of the LEFT forefoot. Report: Diffuse soft tissue edema. Negative for loculated soft tissue abscess collection. Suggestion of soft tissue ulceration over the dorsum of the RIGHT toe at level of the nail bed and at the distal medial aspect. There is diffuse marrow edema at the distal phalanx of the great toe reference the multiplanar inversion recovery series. There is subtle partial loss of normal T1 marrow hyperintensity distally. No fracture evident. Negative for joint effusions. Moderate osteoarthritis at the first metatarsal phalangeal joint. IMPRESSION: Diffuse edema involving the subcutaneous tissue and intrinsic musculature of the foot consistent with cellulitis and myositis given the clinical context. No loculated soft tissue plane abscess collection evident. Marrow signal change at the distal phalanx of the great toe is consistent with presence of osteomyelitis. No pathologic fracture evident.
[2016-08-17] MEDS: Acetaminophen TAB* 325 MG PO PRN ×2 (02:45→21:37)
[2016-08-17] MEDS: Cefepime(*) 1 GM in NS 0.9% 50 ML* 50 ML IVPB SCH ×2 (02:52→15:29)
[2016-08-17] MEDS: Heparin VIAL(*) 5000 UNITS/ML VIAL (FIVE THOUSAND) SUBCUT SCH ×3 (05:50→21:37)
[2016-08-17] MEDS: Metoprolol Tartrate TAB* 100 MG TAB PO SCH ×2 (09:02→20:09)
[2016-08-17] MEDS: metroNIDAZOLE IV 500 MG/100ML* 500 MG/100 ML BAG IVPB SCH ×3 (09:02→23:36)
[2016-08-17] MEDS: Bacitracin OINTMENT* 1 TUBE TOPICAL SCH (09:03)
[2016-08-17] MEDS: Insulin LISPRO* 1 UNITS UNIT SUBCUT SCH ×2 (09:03→12:17)
[2016-08-17] MEDS: Nystatin TOP POWDER* 15 GM BTL TOPICAL SCH ×3 (09:03→20:10)
--- NOTE | 2016-08-17 12:18 | CONS ---
CONSULTATION REPORT: DATE OF CONSULT: 08/16/16 REQUESTING PROVIDER: Nithin Loya MD. CONSULTING SERVICE: Infectious Disease. REASON FOR CONSULT: Foot infection. IMPRESSION: 1. Left medial great toe ulcer which has been debrided and now approximately 30% to 40% of the medi al toe has been exposed with underlying necrosis of the soft tissues. There is not significant surr ounding erythema. She has had no fevers, chills or sweats. There is some soft tissue infection. I think osteomyelitis is possible but not the main issue at this point. 2. Peripheral vascular disease with an abnormal MRA, awaiting further vascular intervention and jake luation. 3. Morbid obesity. 4. Diabetes. RECOMMENDATIONS: Stop vancomycin and continue the Ceftin and Flagyl while her workup continues here . I am concerned that the likely outcome here is she will need an amputation of the right great toe , which may be the best case scenario assuming there is some ulceration and blood flow. HISTORY OF PRESENT ILLNESS: This is a 56-year-old woman with diabetes and a toe wound, admitted on 08/14/16 for worsening pain in the toe. I discussed her case with Dr. Boswell before the consulta tion. He has been following here for a few weeks for a medial toe wound, that started with a toenai l related injury that has gotten bigger with time and she has had some bedside debridement. She is not sure if she is on antibiotics at all. She has not made it to some of her wound clinic appointme nts. Blood cultures were sent here and are negative. She had a white blood cell count of 10 on arr ival and a creatinine of 2.4. She has had no fevers while she has been here. The pain has improved after antibiotics and pain medications and keeping the leg elevated. PAST MEDICAL HISTORY: 1. Morbid obesity. 2. Hypertension. 3. Diabetes type 2. 4. Chronic kidney disease. 5. Chronic obstructive pulmonary disease. 6. Brief history of hemodialysis and dialysis catheter, which was removed. 7. Status post . MEDICATIONS: 1. Vancomycin. 2. Tylenol. 3. Albuterol. 4. Lipitor. 5. Bacitracin. 6. Heparin subcutaneous injections. 7. Ceftin 1 g every 12 hours. 8. Clonidine. 9. Metronidazole 500 mg every 8 hours. ALLERGIES: LISINOPRIL. FAMILY HISTORY: Pancreatic cancer, diabetes. SOCIAL HISTORY: Lives with her . No sick contacts. No injection drugs. REVIEW OF SYSTEMS: All negative full review of systems except as noted above. PHYSICAL EXAM: Vital Signs: Temperature is 37, heart rate 70, respiratory rate 20, blood pressure 160/60, O2 sat 97% on room air. General: She is awake, not in distress. Neurologic: She is orien anne x3, follows all commands, answers all questions. Decreased sensation to light touch in her feet bilaterally. HEENT: There is no conjunctival hemorrhage. Oropharynx without lesions. Neck: Neck is supple. Lymph Nodes: There is no cervical, supraclavicular, inguinal, axillary, or epitrochlea r lymphadenopathy. Heart: Regular rate and rhythm without murmurs, rubs, or gallops. Lungs: [place] r to auscultation bilaterally. Abdomen: Soft, nontender, and nondistended. There are bowel sounds present. Skin: There is no rash or splinter hemorrhages. Musculoskeletal: There is no spine ten derness to palpation of the left medial great toe. There is also the underlying 1 cm to 2 cm black eschar. There is minimal surrounding erythema and odor. There is no purulent drainage. LABORATORY DATA: Creatinine 2.4, white blood cell count 10, hemoglobin 10, platelets 282. Please see impressions and recommendations outlined above, which I have discussed with Dr. Loya. Thank you for asking me to see Ms. Mantilla in consultation. [id number]/[facility] #: [id number]
[2016-08-17] MEDS ORDERED: Torsemide TAB* 100 MG PO ONE (13:00)
--- NOTE | 2016-08-17 13:20 | PN ---
Subjective Date of Service: 08/17/16 Interval History: Patient seen this morning. Frustrated about being in the hospital but understands the importance. No fever or chills. Toe pain not bothersome at the moment. Family History: Unchanged from Admission Social History: Unchanged from Admission Past Medical History: Unchanged from Admission Objective Active Medications: Acetaminophen (Tylenol Tab*) 650 mg PO Q6H PRN Albuterol (Ventolin Hfa Inhaler*) 1 puff INH Q4H PRN Amitriptyline HCl (Elavil Tab*) 25 mg PO BEDTIME ASHER Atorvastatin Calcium (Lipitor*) 20 mg PO BEDTIME ASHER Bacitracin (Bacitracin Ointment*) 1 applic TOPICAL DAILY ASHER Clonidine HCl (Catapres Tab*) 0.1 mg PO BEDTIME ASHER Dextrose (D50w Syringe 50 Ml*) 12.5 gm IV PUSH .FOR FS < 60 - SS PRN Heparin Sodium (Porcine) (Heparin Vial(*)) 5,000 units SUBCUT Q8HR ASHER Cefepime HCl 1 gm/ Sodium (Chloride) 50 mls @ 100 mls/hr IVPB Q12H ASHER Metronidazole/Sodium Chloride (Flagyl 500 Mg Ivpb*) 500 mg in 100 mls @ 100 mls /hr IVPB Q8H ASHER Metoprolol Tartrate (Lopressor Tab*) 100 mg PO BID ASHER Nystatin (Nystatin Top Powder*) 1 applic TOPICAL TID ASHER Vital Signs 08/16/16 08/16/16 08/16/16 16:26 19:46 19:48 Temperature 97.9 F 98.0 F Pulse Rate 67 69 Respiratory 20 18 20 Rate Blood Pressure 157/66 126/112 (mmHg) O2 Sat by Pulse 97 99 Oximetry 08/16/16 08/17/16 08/17/16 23:42 03:34 07:26 Temperature 97.7 F 97.7 F 97.8 F Pulse Rate 63 66 70 Respiratory 20 20 18 Rate Blood Pressure 138/48 127/37 125/51 (mmHg) O2 Sat by Pulse 92 90 92 Oximetry 08/17/16 10:16 Temperature Pulse Rate Respiratory 18 Rate Blood Pressure (mmHg) O2 Sat by Pulse Oximetry Oxygen Devices in Use Now: None Appearance: Middle-aged, obese, F, sitting in chair in NAD Eyes: No Scleral Icterus Ears/Nose/Mouth/Throat: Mucous Membranes Moist Neck: NL Appearance and Movements; NL JVP Respiratory: Symmetrical Chest Expansion and Respiratory Effort, Clear to Auscultation Cardiovascular: NL Sounds; No Murmurs; No JVD, RRR Abdominal: NL Sounds; No Tenderness; No Distention Lymphatic: No Cervical Adenopathy Extremities: - - B/L LE edema. L great toe with medial ulceration with necrotic , fibrinous tissue Neurological: Alert and Oriented x 3 Result Diagrams: 08/14/16 14:46 08/16/16 05:15 Microbiology and Other Data: Microbiology 08/14/16 14:46 Aerobic Blood Culture - Preliminary Blood Venous No Growth Day 1 Anaerobic Blood Culture - Preliminary No Growth Day 1 Assess/Plan/Problems-Billing Assessment: Non-healing L great toe ulcer in a 56 yo F with hx of morbid obesity, DM, HTN, CKD and COPD - Patient Problems (1) Diabetic toe ulcer Current Visit: Yes SNOMED Code(s): 13755924 Comment: Appreciate surgery and ID assistance. Continue Cefepime/Flagyl, Vancomycin. discontinued. MRA (limited exam) of the LLE shows proximal L SFA occlusion with distal reconstitution of flow, little arterial run off signal in distal B/L peroneal and posterior tibial arteries. Spoke with Dr. Hook who states that is likely something he or Dr. Sanchez could intervene on, an option would be to consider CO2 as a contrast agent to try to avoid any further kidney injury. Will plan for procedure on Friday. Will premedicate with mucomyst beginning tomorrow AM in case contrast is used. (2) HTN (hypertension) Current Visit: No Comment: Continue Metoprolol and Clonidine (3) CKD (chronic kidney disease) Current Visit: No Comment: At baseline, BMP today and tomorrow (4) Diabetes Current Visit: No Comment: Will hold on insulin (has not needed much). HbA1c is 6.9%. Check glucose with daily BMP. (5) Edema Current Visit: No Comment: Redose Torsemide today, monitor BMP daily (6) COPD (chronic obstructive pulmonary disease) Current Visit: Yes Comment: Continue prn albuterol. Has needed O2 intermittently. Has ATC oxyen at home which she rarely uses. (7) DVT prophylaxis Current Visit: No Status: Acute Code(s): [id number] - SNOMED Code(s): 845166517 Comment: Heparin Status and Disposition: Inpatient for vascular work-up and IV ABx
[2016-08-17 14:23] LABS: BUN/Creatinine Ratio 33.8 (8-20); Calcium 9.5 mg/dL (8.6-10.3); EGFR African American 24.3 (>60); EGFR Non-African American 18.9 (>60); Potassium 5.4 mmol/L (3.5-5.0)
[2016-08-17] MEDS: cloNIDine TAB* 0.1 MG PO SCH (20:09)
[2016-08-17] MEDS: Atorvastatin* 20 MG TAB PO SCH (20:09)
[2016-08-17] MEDS: Amitriptyline TAB* 25 MG PO SCH (20:09)
[2016-08-18] MEDS: Cefepime(*) 1 GM in NS 0.9% 50 ML* 50 ML IVPB SCH ×2 (03:07→15:20)
[2016-08-18 06:05] LABS: BUN/Creatinine Ratio 36.6 (8-20); Calcium 9.3 mg/dL (8.6-10.3); EGFR Non-African American 18.7 (>60); Potassium 5.2 mmol/L (3.5-5.0)
[2016-08-18] MEDS: Heparin VIAL(*) 5000 UNITS/ML VIAL (FIVE THOUSAND) SUBCUT SCH ×3 (06:06→21:48)
[2016-08-18] MEDS: metroNIDAZOLE IV 500 MG/100ML* 500 MG/100 ML BAG IVPB SCH ×3 (07:52→22:56)
[2016-08-18] MEDS: Bacitracin OINTMENT* 1 TUBE TOPICAL SCH (08:56)
[2016-08-18] MEDS: Nystatin TOP POWDER* 15 GM BTL TOPICAL SCH ×3 (08:56→20:44)
[2016-08-18] MEDS: Metoprolol Tartrate TAB* 100 MG TAB PO SCH ×2 (08:57→20:42)
[2016-08-18] MEDS: Acetylcysteine CAP (RENAL)* 600 MG PO SCH ×2 (08:57→20:42)
--- NOTE | 2016-08-18 11:47 | PN ---
Progress Note - Progress Note Date of Service: 08/18/16 SOAP: Subjective: Left foot feels better Objective: Temp Pulse Resp BP Pulse Ox 97.6 F 69 16 121/44 94 08/18/16 08:02 08/18/16 08:02 08/18/16 08:03 08/18/16 08:02 08/18/16 08:02 Left great toe with dry gangene over medial aspect. No odor or drainage. No proximal cellulitis MRI left foot reviewed--appears to be osteomyelitis in toe, no abscess. Assessment: Non-healing ulcer left great toe with PVD and probable osteomyelitis Plan: IV antibiotics and wound care Possible vascular intervention tomorrow. Consider consult with Dr. Zelaya in future.
[2016-08-18] MEDS: Acetaminophen TAB* 325 MG PO PRN ×2 (11:50→21:46)
--- NOTE | 2016-08-18 13:49 | PN ---
Subjective Date of Service: 08/18/16 Interval History: Patient seen this afternoon. Foot not too bothersome. No fever or chills. Was able to get some sleep with decreased VS frequency. Family History: Unchanged from Admission Social History: Unchanged from Admission Past Medical History: Unchanged from Admission Objective Active Medications: Acetaminophen (Tylenol Tab*) 650 mg PO Q6H PRN Acetylcysteine (Acetylcysteine Cap (Renal)*) 1,200 mg PO BID ASHER Albuterol (Ventolin Hfa Inhaler*) 1 puff INH Q4H PRN Amitriptyline HCl (Elavil Tab*) 25 mg PO BEDTIME ASHER Atorvastatin Calcium (Lipitor*) 20 mg PO BEDTIME ASHER Bacitracin (Bacitracin Ointment*) 1 applic TOPICAL DAILY ASHER Clonidine HCl (Catapres Tab*) 0.1 mg PO BEDTIME ASHER Dextrose (D50w Syringe 50 Ml*) 12.5 gm IV PUSH .FOR FS < 60 - SS PRN Heparin Sodium (Porcine) (Heparin Vial(*)) 5,000 units SUBCUT Q8HR ASHER Cefepime HCl 1 gm/ Sodium (Chloride) 50 mls @ 100 mls/hr IVPB Q12H ASHER Metronidazole/Sodium Chloride (Flagyl 500 Mg Ivpb*) 500 mg in 100 mls @ 100 mls /hr IVPB Q8H ASHER Metoprolol Tartrate (Lopressor Tab*) 100 mg PO BID ASHER Nystatin (Nystatin Top Powder*) 1 applic TOPICAL TID ASHER Vital Signs 08/17/16 08/17/16 08/17/16 15:22 16:25 20:00 Temperature 97.6 F Pulse Rate 73 Respiratory 20 18 Rate Blood Pressure 180/79 117/52 (mmHg) O2 Sat by Pulse 95 Oximetry 08/17/16 08/18/16 08/18/16 20:08 08:02 08:03 Temperature 98.3 F 97.6 F Pulse Rate 80 69 Respiratory 17 16 16 Rate Blood Pressure 147/62 121/44 (mmHg) O2 Sat by Pulse 99 94 Oximetry Oxygen Devices in Use Now: None Appearance: Middle-aged, F, laying in chair in NAD Eyes: No Scleral Icterus Ears/Nose/Mouth/Throat: Mucous Membranes Moist Neck: NL Appearance and Movements; NL JVP Respiratory: Symmetrical Chest Expansion and Respiratory Effort, Clear to Auscultation Cardiovascular: NL Sounds; No Murmurs; No JVD, RRR Abdominal: NL Sounds; No Tenderness; No Distention - Obese Lymphatic: No Cervical Adenopathy Extremities: - - B/L LE edema, slightly improved Skin: - - Did not assess toe today Neurological: Alert and Oriented x 3 Result Diagrams: 08/14/16 14:46 08/18/16 05:28 Microbiology and Other Data: Assess/Plan/Problems-Billing Assessment: Non-healing L great toe ulcer in a 56 yo F with hx of morbid obesity, DM, HTN, CKD and COPD - Patient Problems (1) Diabetic toe ulcer Current Visit: Yes SNOMED Code(s): 13831667 Comment: Appreciate surgery and ID assistance. Continue Cefepime/Flagyl. MRA (limited exam) of the LLE shows proximal L SFA occlusion with distal reconstitution of flow, little arterial run off signal in distal B/L peroneal and posterior tibial arteries. Spoke with Dr. Hook who states that is likely something he or Dr. Sanchez could intervene on, an option would be to consider CO2 as a contrast agent to try to avoid any further kidney injury. Will plan for procedure on Friday. Premedicating with mucomyst in case contrast is used. NPO after MN. (2) HTN (hypertension) Current Visit: No Comment: Continue Metoprolol and Clonidine (3) CKD (chronic kidney disease) Current Visit: No Comment: BMP daily. Hold torsemide today. (4) Diabetes Current Visit: No Comment: Will hold on insulin (has not needed much). HbA1c is 6.9%. Check glucose with daily BMP. (5) Edema Current Visit: No Comment: Hold torsemide today. (6) COPD (chronic obstructive pulmonary disease) Current Visit: Yes Comment: Continue prn albuterol. Has needed O2 intermittently. Has ATC oxyen at home which she rarely uses. (7) DVT prophylaxis Current Visit: No Status: Acute Code(s): [id number] - SNOMED Code(s): 097974281 Comment: Heparin Status and Disposition: Inpatient for vascular work-up and IV ABx
[2016-08-18] MEDS ORDERED: Vancomycin Trough Check NOTE FOLLOW UP ONE (16:00)
[2016-08-18] MEDS: cloNIDine TAB* 0.1 MG PO SCH (20:42)
[2016-08-18] MEDS: Atorvastatin* 20 MG TAB PO SCH (20:43)
[2016-08-18] MEDS: Amitriptyline TAB* 25 MG PO SCH (20:43)
[2016-08-18] MEDS ORDERED: NS 0.9% 1000 ML* 1,000 ML IV SCH (22:00)
[2016-08-19] MEDS: Cefepime(*) 1 GM in NS 0.9% 50 ML* 50 ML IVPB SCH (03:10)
[2016-08-19] MEDS: Heparin VIAL(*) 5000 UNITS/ML VIAL (FIVE THOUSAND) SUBCUT SCH ×2 (04:01→14:01)
[2016-08-19] MEDS: metroNIDAZOLE IV 500 MG/100ML* 500 MG/100 ML BAG IVPB SCH (07:57)
[2016-08-19 09:36] VITALS: BP 154/51
[2016-08-19] MEDS: Nystatin TOP POWDER* 15 GM BTL TOPICAL SCH ×2 (09:37→14:01)
[2016-08-19] MEDS: Acetylcysteine CAP (RENAL)* 600 MG PO SCH (09:52)
[2016-08-19] MEDS: Metoprolol Tartrate TAB* 100 MG TAB PO SCH (09:52)
--- NOTE | 2016-08-19 11:52 | DCNOTE ---
Patient seen this morning. She has no new complaints. Is very anxious to leave as Dr. Hook will not be doing angiogram today. He stated this will likely be a long, complicated procedure 2/2 to her size and he does not feel we have the customer support executive here to do it today. His office will be in contact with her directly to ideally have this done later in the week. On exam, RRR, s1 and s2 present, no m/g/r, abd soft, NTND, BS+, mild LE edema, L toe with necortic ulceration on medial aspect, no drainage. Will discharge today on oral Doxycyline (as per ID) and she will f/u with Dr. Hook as an outpatient.
--- NOTE | 2016-08-19 13:09 | CONSULT ---
Consult Consult: Date of Service: 08/19/16 Patient seen and examined at the bedside at approximately 1000 hours. Reason for Consultation: LLE arterial revascularization request Focused HPI: Mrs. Mantilla is a 56 yof with multiple co-moribidites that include chronic renal insufficiency, Type 2 diabetes, morbid obesity and previous cigarette smoking (quit 7 years ago), that is admitted regarding her chronic left great toe wound. She reports that the wound started February 2016 and has progressively gotten worse since then. Prior to the wound she denies any leg pain when walking, but states her walking is limited by shortness of breath. She denies night time rest pain of her calves prior to the wound. MRA TOF w/o contrast (08/15/16): Very limited imaging demonstrates likely short segment occlusion of the left SFA. Bilaterally only the ARACELI-DPA demonstrate flow. Relevant labs: Laboratory Tests 08/14/16 08/18/16 14:46 05:28 WBC 10.6 BUN 97 H Creatinine 2.65 H Est GFR (Non-Af Amer) 18.7 PE: Selected Entries 08/19/16 08:35 Temperature 98.2 F Pulse Rate 76 Respiratory 18 Rate Blood Pressure 154/51 (mmHg) Blood Pressure 78 Mean O2 Sat by Pulse 93 Oximetry NAD, AAO x 3 Very obese body habitus makes vascular examination difficult Non-palpable pulses in both lower extremities + doppler pulses marked at the left DPA and STAFF PHYSICIAN Wound at left great toe with evidence of debridement along the medial and distal aspect Skin appears gangrenous along margin of debridement Assessment: 56 year old woman with multiple risk factors for atherosclerotic arterial insufficiency with chronic left great toe wound. Arterial revascularization is indicated and will scheduled promptly on an outpatient basis. Plan: 1. The patient is at high risk for post contrast renal failure. I will discuss with Dr. Mak the best strategies to preserve what renal function she still has which likely will include IV hydration and prophylactic mucomyst. 2. Bedside ultrasound to visualize bilateral POULTRY TRIMMER and SFA arteries (her pannus prevented me from reliably palpating her groin pulses). 3. The IR clinic will contact patient regarding scheduling and pre-procedural medications which will include at least mucomyst and Plavix. 4. Continue antibiotic therapy as directed by ID.
[2016-08-19] MEDS: Bacitracin OINTMENT* 1 TUBE TOPICAL SCH (13:37)
[2016-08-19 14:37] LABS: BUN/Creatinine Ratio 33.7 (8-20); Calcium 8.9 mg/dL (8.6-10.3); EGFR African American 21.8 (>60); Potassium 5.7 mmol/L (3.5-5.0)
--- NOTE | 2016-08-19 15:36 | RAD ---
INDICATION: Gangrenous left great toe wound in a vasculopath. The primary purpose of this imaging was to determine feasibility of percutaneous arterial access the common femoral arteries and to further characterize disease in the left SFA and ankle arteries. COMPARISON: MRA without contrast dated August 15, 2016 that indicates short segment occlusion of the left SFA and stenoses versus occlusions involving the infrapopliteal arteries. TECHNIQUE: Vallejo scale, color Doppler, and spectral analysis utilized to image the bilateral proximal superficial femoral arteries, bilateral common femoral arteries and left ankle arteries. Flow velocities were determined at each visualized artery. REPORT: There is antegrade flow as well as visualization of the bilateral common femoral arteries measuring approximately 2.5 cm below the skin surface above the femoral head/neck. There is a mild degree of narrowing of the bilateral proximal superficial femoral arteries but flow is maintained. The left posterior tibial artery and dorsalis pedis artery exhibit monophasic waveform. Flow velocity is reduced to 17 cm/s at the left dorsalis pedis artery. IMPRESSION: Imaging of select lower extremity arterial vasculature as described above.
--- NOTE | 2016-08-20 12:33 | DS ---
CC: Dr. Abraham; Dr. Colby Boswell; Dr. Nj Hook DISCHARGE SUMMARY: DATE OF ADMISSION: 08/14/16 DATE OF DISCHARGE: 08/19/16 PRIMARY CARE PHYSICIAN: Dr. Abraham. PRINCIPAL DISCHARGE DIAGNOSIS: Non-healing left great toe ulcer with possible osteomyelitis. SECONDARY DIAGNOSES: 1. Hypertension. 2. Super morbid obesity. 3. Diabetes. 4. Chronic kidney disease. 5. Chronic obstructive pulmonary disease. DISCHARGE MEDICATION REGIMEN: 1. Tylenol 650 mg by mouth every 6 hours as needed for pain. 2. Bacitracin ointment one application to the wound topical daily. 3. Doxycycline 100 mg by mouth 2 times daily. 4. Glipizide 10 mg by mouth 2 times daily. 5. Torsemide 100 mg by mouth daily. 6. Clonidine 0.1 mg by mouth at bedtime. 7. Santyl 1 application topical daily. 8. Vitamin D2 50,000 units by mouth weekly. 9. Albuterol 1 puff inhaled every 4 hours as needed for shortness of breath or wheezing. 10. Metoprolol tartrate 100 mg by mouth 2 times daily. 11. Actos 45 mg by mouth daily. 12. Amitriptyline 25 mg by mouth daily. 13. Atorvastatin 20 mg by mouth at bedtime. STUDIES DONE DURING HOSPITALIZATION: MRI of the lower extremity, impression: Highly limited exam due to the relative inferiority of non-contrast MR angiography and due to the patient's body habitus the following and the most severe and are clinically relevant vascular findings. There appears to be a short segment occlusion of the proximal left superficial femoral artery just beyond the bifurcation measuring approximately 2.4 cm at length before the left SFA fills by reconstituted flow. There is a reliable determination of inline arterial run off provided by the anterior tibial arteries bilaterally. There is little to no signal demonstrated by the distal bilateral peroneal and posterior tibial arteries. MRI of the lower extremities without contrast, impression: Diffuse edema involving the subcutaneous tissue and intrinsic musculature of the left foot consistent with cellulitis and myositis given the clinical context. No loculated soft tissue plane abscess collection evident. Marrow signal change at the distal phalanx with the great toe is consistent with presence of osteomyelitis. No pathological fracture is evident. Lower extremity Duplex on the left side, impression: Imaging of the left lower extremity arterial vasculature as described above. Anterograde flow as well as visualization of the bilateral common femoral arteries measuring approximately 2.5 cm below the skin surface, above the femoral head/neck. Mild degree of narrowing of the bilateral proximal superficial femoral arteries, but flow is maintained. The left posterior tibial arteries and dorsalis pedis arteries monophasic waveform, flow velocity is reduced to 17 cm/sec at the left dorsalis pedis artery. HISTORY OF PRESENT ILLNESS AND HOSPITAL SUMMARY: Please see my full history and physical for full details. Briefly, Ms. Mantilla is a 56-year-old female with a past medical history as above who presents to the hospital as a transfer from the wound care clinic due to left great toe that has not been healing. I was contacted by Dr. Boswell and the patient was directly admitted and started on IV antibiotics. Infectious Disease was consulted and the patient had imaging done as above, which showed possible obstruction at the level of the SFA on the left and possible osteomyelitis. Imaging was limited due to patient's habitus and her renal dysfunction precluded the use of contrast. The patient was maintained on IV antibiotics over the following days. Initial plan was for a possible angiography to be done by Dr. Hook or Dr. Sanchez on Friday08/19/16; however, after evaluating the patient it was felt that this was not emergent and that the procedure would likely be very complicated and take a significant amount of time and due to this being just prior to 08/20/16, staff on hand would not be able to accommodate this procedure. The patient will be discharged home on oral doxycycline and she will be contacted by Dr. Hook's office with the plans to have the procedure done later in the week. Of note, on the day of discharge, the patient was noted to have an elevated potassium of 5.7, unfortunately the lab was drawn late and this was not noted until the patient has left the hospital. I have ordered a repeat BMP for her to be done on 08/21/16. I have been attempting to contact her home and will continue to do so. The patient will need close outpatient followup, will see Dr. Joiner and she will follow up with her PCP as well as with Dr. Boswell in the wound clinic. TIME SPENT: Total time spent on this discharge 45 minutes. This is a summary of the hospitalization, please see the full medical record for further details. [id number]/[facility] #: [id number] [facility]
== END 2016-08-19 15:00 | disposition home or self-care (01) | DRG 344 ==
LOC: MED 12:33
PROVIDERS: ADMIT Hospitalist; ATTEND Hospitalist
DX: E11.69 Type 2 diabetes mellitus with other specified complication (principal); M86.9 Osteomyelitis, unspecified; E11.22 Type 2 diabetes mellitus with diabetic chronic kidney disease; N18.4 Chronic kidney disease, stage 4 (severe); E11.621 Type 2 diabetes mellitus with foot ulcer; Z68.43 Body mass index [BMI] 50.0-59.9, adult; L03.116 Cellulitis of left lower limb; L97.523 Non-pressure chronic ulcer of other part of left foot with necrosis of muscle; I12.9 Hypertensive chronic kidney disease with stage 1 through stage 4 chronic kidney disease, or unspecified chronic kidney disease; E66.01 Morbid (severe) obesity due to excess calories; J44.9 Chronic obstructive pulmonary disease, unspecified; M60.9 Myositis, unspecified; Z79.84 Long term (current) use of oral hypoglycemic drugs; Z79.899 Other long term (current) drug therapy; Z88.8 Allergy status to other drugs, medicaments and biological substances; Z82.49 Family history of ischemic heart disease and other diseases of the circulatory system; Z80.8 Family history of malignant neoplasm of other organs or systems; Z87.891 Personal history of nicotine dependence
CPT/HCPCS: 11042; 36415; 72198; 74185; 80048; 80053; 80202; 82565; 83036; 83605; 84520; 85025; 86140; 87040; A9270-GY; C8901; C8913-LT; C8919; J0692; J1644; J3370

== ENCOUNTER 2016-09-02 08:06 | Inpatient (IN) | payer BC, MEDICARE ==
[2016-09-02 09:16] LABS: Hematocrit 32 % (35-47); Hemoglobin 10.1 g/dl (12.0-16.0); Mean Corpuscular HGB Conc 31 g/dl (31-36); Mean Corpuscular Hemoglobin 31 pg (27-31); Mean Corpuscular Volume 98 fL (80-97); Mean Platelet Volume 8 um3 (7.4-10.4); Red Blood Count 3.27 10^6/ul (4.0-5.4); Red Cell Distribution Width 16 % (10.5-15); White Blood Count 17.3 10^3/ul (3.5-10.8)
[2016-09-02 09:21] LABS: Add Diff/Slide Review? Slide Review Added; Comments Flag Yes
[2016-09-02 09:33] LABS: Albumin 3.2 g/dL (3.2-5.2); BUN/Creatinine Ratio 39.8 (8-20); EGFR African American 25.6 (>60); EGFR Non-African American 19.9 (>60); Globulin 3.5 g/dL (2-4); Potassium 4.1 mmol/L (3.5-5.0); Total Bilirubin 0.6 mg/dL (0.2-1.0); Total Protein 6.7 g/dL (6.4-8.9)
--- NOTE | 2016-09-02 09:35 | RAD ---
Indication: Severe LEFT hip pain; unable to ambulate. Post balloon angioplasty of the LEFT superficial femoral artery at multiple levels August 29, 2016. Comparison: December 15, 2011 CT. Technique: AP pelvis and AP and frog-leg lateral views LEFT hip. Report: Obese body habitus limits image quality. The LEFT hip is normally located. No LEFT proximal femur or pelvic fracture or pelvic joint diastases evident. Minimal osteophytic lipping at the hips without significant joint space narrowing. Diffuse vascular calcifications. Asymmetric soft tissue edema at the visualized LEFT thigh. IMPRESSION: 1. No radiographic evidence for LEFT hip fracture. 2. Asymmetric soft tissue swelling at the LEFT thigh.
[2016-09-02 10:07] LABS: Urine Bacteria Absent (Absent); Urine Bilirubin Negative (Negative); Urine Glucose Negative (Negative); Urine Nitrite Negative (Negative)
[2016-09-02] MEDS ORDERED: NS 0.9% 1000 ML* 1,000 ML IV ONE ×2 (10:45→12:05)
[2016-09-02] MEDS ORDERED: Acetaminophen TAB* 325 MG PO ONE (10:58)
[2016-09-02] MEDS ORDERED: Morphine INJ* 2 MG/ML 1 ML SYRINGE IV ONE (11:26)
[2016-09-02] MEDS ORDERED: Dextrose 50% Syringe 50 ML* 25 GM/50 ML SYRINGE IV PUSH PRN (12:05)
[2016-09-02] MEDS ORDERED: Albuterol HFA INHALER* 8 gm MDI INH PRN (12:12)
[2016-09-02] MEDS ORDERED: NS 0.9% 1000 ML* 1,000 ML IV SCH (12:15)
[2016-09-02] MEDS ORDERED: Vancomycin per Pharmacy* NOTE FOLLOW UP PRN (12:16)
[2016-09-02] MEDS ORDERED: Vancomycin(*) 1,500 MG in NS 0.9% 250 ML* 250 ML IVPB ONE (12:30)
[2016-09-02 12:31] LABS: C Reactive Protein 39.27 mg/L (< 5.00)
--- NOTE | 2016-09-02 13:29 | RAD ---
INDICATION: Left hip pain. COMPARISON: There are no prior studies available for comparison. TECHNIQUE: Contiguous axial sections were obtained beginning above the T12 vertebra and continuing through the L5-S1 disc space. Images were reconstructed in the sagittal and coronal planes. The examination is limited due to the patient's body habitus. FINDINGS: There is a mild lumbar scoliosis convex toward the left side. The vertebra otherwise in normal alignment. No fracture is seen. At the L1-L2 level there is a mild broad-based disc bulge and moderate hypertrophic changes within the facet joints. There is mild spinal canal narrowing. Neural foramen appear patent on both sides. At the L2-L3 level there is a mild broad-based disc bulge and mild hypertrophic changes within the facet joints. There is mild spinal canal narrowing. Neural foramen appear patent on both sides. At the L3-L4 level there is a mild broad-based disc bulge and mild to moderate hypertrophic changes within the facet joints. There is mild to moderate spinal canal narrowing. Neural foramen appear patent on both sides. At the L4-L5 level there is a moderate broad-based disc bulge and mild hypertrophic changes within the facet joints. There is moderate spinal canal narrowing and mild bilateral neural foraminal narrowing. At the L5-S1 level there is a mild broad-based disc bulge and moderate hypertrophic changes within the facet joints. There is mild to moderate bilateral neural foraminal narrowing. IMPRESSION: 1. LIMITED STUDY. 2. MILD TO MODERATE DIFFUSE LUMBAR SPONDYLOSIS. IF THE PATIENT'S SYMPTOMS PERSIST, RECOMMEND AN MRI OF THE LUMBAR SPINE FOR FURTHER EVALUATION.
--- NOTE | 2016-09-02 13:42 | RAD ---
INDICATION: LEFT side abdomen and hip pain. COMPARISON: CT lumbar spine of the same date. December 15, 2011 CT. TECHNIQUE: Multidetector CT images were obtained from the lung bases to the ischial tuberosities. Evaluation of the viscera is limited without IV contrast. Multiplanar reformation. REPORT: Obesity limits image quality. Predominant linear consolidation at the LEFT lung base is most consistent with atelectasis. Cardiomegaly. Negative for CT abnormality of the unenhanced liver. Increased density in the dependent portion of the distended gallbladder which may represent sludge or stones. No biliary dilatation evident. No suspicious finding of the pancreas. Vascular calcifications of the visceral arteries. No suspicious finding of the normal sized spleen. Medially projecting diverticulum from the second segment of the duodenum without suggestion of inflammatory change. Negative for CT abnormality of the small bowel loops or retrocecal appendix. Colonic diverticulosis moderate in severity most prominent at the sigmoid colon without findings of acute diverticulitis. Negative for ascites or free air. Small fat-containing umbilical hernia without inflammatory change. Unremarkable adrenal glands. No conspicuous focal renal lesions, stones, or hydronephrosis. Mild bilateral perinephric fat reticulation similar to the 2012 exam without concern. Unremarkable ureters and distended urinary bladder. No suspicious finding of the rightward deviated anteverted uterus. No adnexal region lesions evident. Negative for lymphadenopathy. Extensive calcific plaque of the abdominal aorta, iliac arteries, and visceral arteries. Negative for aortoiliac aneurysm. Lumbar sacral spine degenerative spondylosis and facet joint osteoarthritis. Negative for suspicious focal osseous lesions. IMPRESSION: 1. Potential cholelithiasis or biliary sludge. Consider ultrasound for further assessment if deemed appropriate. 2. Normal appendix documented. Colonic diverticulosis without findings of acute diverticulitis. Small fat-containing umbilical hernia without inflammatory change. 3. Negative for obstructive uropathy. 4. Extensive peripheral vascular disease. Negative for aortoiliac aneurysm.
[2016-09-02 13:52] LABS: Erythrocyte Sed Rate 88 mm/Hr (0-30)
[2016-09-02] MEDS: Nystatin TOP POWDER* 15 GM BTL TOPICAL SCH ×2 (14:52→22:11)
[2016-09-02] MEDS: Heparin VIAL(*) 5000 UNITS/ML VIAL (FIVE THOUSAND) SUBCUT SCH ×2 (14:54→21:41)
[2016-09-02] MEDS: Clopidogrel TAB* 75 MG PO SCH (14:54)
[2016-09-02] MEDS ORDERED: Cefepime(*) 1 GM in NS 0.9% 50 ML* 50 ML IVPB SCH ×2 (15:00→18:00)
[2016-09-02] MEDS: Collagenase 250 MG/GM OINT* 30 GM TOPICAL SCH (16:16)
[2016-09-02] MEDS: oxyCODONE/Acetamin 5/325 MG* TAB PO PRN ×2 (16:27→21:43)
--- NOTE | 2016-09-02 16:51 | HP ---
CC: [facility]; Dr. Boswell; Dr. Joiner* HISTORY AND PHYSICAL: DATE OF ADMISSION: 09/02/16 PRIMARY CARE PROVIDER: [facility]. She was seeing Dr. Abraham , but she is switching to a new provider within the group because of his care home. ATTENDING PHYSICIAN WHILE IN THE HOSPITAL: Ck Tsang MD* (report being dictated by David Jay NP) CONSULTING SURGEON: Dr. Boswell. CONSULTING INFECTIOUS DISEASE SPECIALIST: Dr. Joiner. CHIEF COMPLAINT: Fall. HISTORY OF PRESENT ILLNESS: Ms. Mantilla is 56-year-old female patient who was recently here with Dr. Hook, on the for a intervention to her left lower extremity. She had a stent placed, I do not have access to those. She had a balloon angioplasty to the left SFA via right common femoral artery. She underwent the procedure on the . She is doing well. She was instructed to take Plavix daily and also to take aspirin daily. She was following with the wound clinic, unfortunately the last night she was sitting on the edge of the bed. She has been complaining of having mostly left hip pain on the outside and in her buttocks, but no back pain. This was before the fall. She slipped out of the bed and landed on her buttocks and she was unable to get up out of the bed. She has been having discomfort here for the last few days. She denies any trauma. She says this has been going on since the weekend and there has been no fever. She has been having chills off and on. She denies having any abdominal pain. There has been no nausea. She denies having any vomiting or any dysuria. She denies any chest pain or shortness of breath. She says the groin site has not been draining and she has not noticed any bloody discharge from the groin site. She says that her toe looks about the same that it had been in the beginning of the month when she was admitted for a possible osteomyelitis and wound infection. The patient came in, was evaluated and was noted that she appeared to be in mild rhabdomyolysis, white count was 17,000, which was unclear etiology and the hospitalist service was asked to evaluate for admission. PAST MEDICAL HISTORY: Significant for: 1. Peripheral vascular disease. 2. Hypertension. 3. Diabetes. 4. CKD, stage 4. 5. COPD. 6. Obesity. 7. Left great toe ulcer. PAST SURGICAL HISTORY: 1. She has had an HD catheter removed and placed. 2. . 3. She has had stents to the left SFA done with Dr. Hook on the . HOME MEDICATIONS: According to the list we obtained include: 1. Aspirin 81 mg daily, although the patient states she is not taking this and it is reported in Dr. Hook's notes that she should be taking this. 2. Plavix 75 mg daily. 3. Actos 45 mg daily. 4. Lipitor 20 mg daily at bedtime. 5. Elavil 25 mg at bedtime. 6. Ventolin 1 puff inhaled every 4 hours as needed. 7. Lopressor 100 mg p.o. b.i.d. 8. Vitamin D2, at 50,000 p.o. weekly. 9. Santyl 1 application topically daily. 10. Glipizide 10 mg p.o. b.i.d. 11. Catapres 0.1 mg p.o. at bedtime. ALLERGIES TO MEDICATIONS: Include LISINOPRIL. FAMILY HISTORY: Her mother had a history of pancreatic cancer. Father had a history of MS. SOCIAL HISTORY: She is a former smoker. She smoked for about 15 to 20 years. She does not drink alcohol. Surrogate decision maker is her . REVIEW OF SYSTEMS: There is no documented fever. She does not have any chills. There is no significant weight change. There was no double vision. She denies having any ear discharge. There was no rhinorrhea, no sore throat, no thyroid enlargement. She denied having any chest pain. No orthopnea. No nocturnal dyspnea. There was no abdominal pain, no nausea, no vomiting. No dysuria, no frequency. There was no seizure, no loss of consciousness, no pruritus, and no skin ulcerations. Review of 14 systems completed, all others negative. PHYSICAL EXAMINATION GENERAL: At this time, Ms. Mantilla is a 56-year-old female patient. She is sitting in the ER stretcher. She does not appear to be in acute distress. VITAL SIGNS: Reveals blood pressure 119/94, pulse 98, respirations 18, O2 sat 97%, and temperature 97.6. HEENT: Head is atraumatic and normocephalic. Eyes: EOMs intact. Sclerae anicteric, not pale. Throat: Oral mucosa appears to be moist, no oropharyngeal erythema. NECK: Supple. LUNGS: Clear to auscultation bilaterally. No wheezes, rales, or rhonchi. HEART: Sounds S1 and S2. Regular rate and rhythm. No murmurs, rubs, or gallops. ABDOMEN: Soft, flat, and nontender. Bowel sounds present. EXTREMITIES: Pulses 2+ throughout. She is able to move 4 extremities. She did have 5/5 strength to the lower extremities. She had decreased pedal pulses , but they were palpable. She does have pain to the left hip with passive range of motion. NEUROLOGIC: She is awake, alert and oriented x3. No gross focal deficits. SKIN: Intact with the exception, she has a necrotic left great toe, part of the toe appears to be necrotic just on the medial aspect of that left great toe. LABORATORY DATA/IMAGING STUDIES: Labs today revealed WBC 17.3, RBC 3.27, hemoglobin 10.1, hematocrit 32, platelet count 256. INR 1.25. Her sodium was 142, potassium 4.1, chloride of 101, bicarb 20, BUN 100, creatinine 2.51, which is near baseline; glucose 81, lactic 1.2, calcium 9.0, total bilirubin 0.6, AST 67, ALT 17, alk phos 93. Her CK was 2082, albumin was 6.2, CRP is pending. Urine showed 1+ protein, 2+ blood. She did have a pelvis x-ray obtained today as well, which revealed no radiographic evidence for left hip fracture, asymmetric soft tissue swelling of the left thigh. Old medical records reviewed. ASSESSMENT AND PLAN: Ms. Mantilla is a 56-year-old female patient with multiple medical problems coming into the ER today with complaints of fall, now found to be mild rhabdomyolysis. She will be admitted under inpatient status for: 1. Rhabdomyolysis: At this time, it is mild. I am going to go ahead and give her IV fluids. We will cycle her CK every 6 hours and we will monitor her kidney function closely and CK closely. 2. Left toe infection: She does have leukocytosis, which is unclear, I am concerned that it could be coming from her left toe. I did touch base with Surgery and they think that we may need to consider amputation as she has a significant amount of her toe that is necrotic and I did touch base with Dr. Joiner. I going to put the patient on cefepime and vancomycin and we will continue to follow this closely. Checking ESR, CRP. Blood cultures have been sent. Her urine culture has been sent. I did not do a chest x-ray as there is no respiratory ailment and I think that the source is probably is from the toe. 3. Left hip pain: At this point, because of the recent interventional procedure, I am going to get a CT of the lumbar spine and of the pelvis and of the abdomen to make sure there is no hematoma or any fractures from the fall possibly. 4. Hypertension: Continue meds as prescribed. 5. Diabetes: Lispro sliding scale. 6. Chronic kidney disease stage 4: Her creatinine is stable. 7. Chronic obstructive pulmonary disease: P.r.n. albuterol has been ordered. 8. History of peripheral vascular disease: We will continue her Plavix, aspirin, and statin therapy. 9. DVT prophylaxis. She will be placed on heparin subcu. 10. Code status: Full code. 11. Fluids, electrolytes, and nutrition: She can have a consistent carb diet. TIME SPENT: On admission was approximately 60 minutes, greater than half the time spent [id number] with the patient performing the history and physical, other half of the time spent going over the plan of care with the patient and implementing the plan of care. I discussed the plan of care with my attending, Dr. Tsang, he is in agreement. DAVID JAY, DANIEL [id number]/[facility] #: [id number] [facility]
--- NOTE | 2016-09-02 17:09 | ED ---
Lower Extremity - HPI Summary HPI Summary: Patient with a complicated health history presents with left hip pain x 2 weeks after being discharged from the hospital for a femoral balloon angioplasty. She states d/t weakness and pain in the left hip, she fell off her bed last night and ended up laying there until her called the ambulance in the morning. She told the nurse she stayed on the floor and her then went to bed and left her stating to him she would attempt to get up soon, but never did. Pain is located in the posterior hip over the lower back and radiates to the front LLQ. Denies abdominal pain and on deep palpation, cannot recreated the pain. No pain at rest. 9/10 pain upon movement or upon attempting to stand. She is sedentary and has SOB at baseline. Oxygen at home. Denies N/V/C/ D, chest pain, or neurological deficits. - History of Current Complaint Chief Complaint: EDExtremityLower Stated Complaint: LEG PAIN Time Seen by Provider: 09/02/16 08:33 Hx Obtained From: Patient Mechanism Of Injury: Fall From Height Of: - 3 ft Onset of Pain: Immediate Onset/Duration: Minutes Severity Initially: Moderate Severity Currently: Moderate Pain Intensity: 9 Pain Scale Used: 0-10 Numeric Timing: Intermittent, Lasting Minutes Location: Is Discrete @ - left hip Aggravating Factor(s): Standing, Ambulation, Weight Bearing Alleviating Factor(s): Rest Able to Bear Weight: No - Risk Factors Gout Risk Factors: Age Over 40, Obesity DVT Risk Factors: Negative Septic Arthritis Risk Factor: Negative - Allergies/Home Medications Allergies/Adverse Reactions: Allergies Allergy/AdvReac Type Severity Reaction Status Date / Time Lisinopril Allergy Dizziness Verified 09/02/16 08:27 Home Medications: Home Medications Aspirin EC Low Dose* [Ecotrin EC Low Dose 81 MG*] 81 mg PO DAILY 09/02/16 [ History Confirmed 09/02/16] Clopidogrel TAB* [Plavix TAB*] 75 mg PO DAILY 09/02/16 [History Confirmed ] PMH/Surg Hx/FS Hx/Imm Hx Previously Healthy: No - see below Endocrine/Hematology History: Reports: Hx Diabetes - For about 23 years. Denies: Hx Anticoagulant Therapy, Hx Blood Disorders, Hx Blood Transfusions, Hx Bone Marrow Disease, Hx Systemic Lupus Erythematosus, Hx Sickle Cell Disease , Hx Thyroid Disease, Hx Anemia, Hx Unexplained Bleeding, Other Endocrine/ Hematological Disorders Cardiovascular History: Reports: Hx Hypertension - x 5-6 years Denies: Hx Aneurysm, Hx Angina, Hx Angioplasty, Hx Auto Implanted Cardiovert Defib, Hx Cardiac Arrest, Hx Cardiomegaly, Hx Congenital Heart Disease, Hx Congestive Heart Failure, Hx Coronary Artery Disease, Hx Deep Vein Thrombosis, Hx Hypercholesterolemia, Hx Hypotension, Hx Myocardial Infarction, Hx Pacemaker/ ICD, Hx Peripheral Vascular Disease, Hx Rheumatic Fever, Hx Syncope, Hx Valvular Heart Disease, Other Cardiovascular Problems/Disorders Respiratory History: Reports: Hx Chronic Obstructive Pulmonary Disease (COPD), Hx Pneumonia - ~ 5x, Hx Sleep Apnea Denies: Hx Asthma, Hx Chronic Bronchitis, Hx Cystic Fibrosis, Hx Lung Cancer , Hx Pleural Effusion, Hx Pulmonary Edema, Hx Pulmonary Embolism, Hx Seasonal Allergies, Other Respiratory Problems/Disorders - copd GI History: Denies: Hx Cirrhosis, Hx Crohn's Disease, Hx Gall Bladder Disease, Hx Gastroesophageal Reflux Disease, Hx Gastrointestinal Bleed, Hx Hiatal Hernia, Hx Irritable Bowel, Hx Jaundice, Hx Ulcer, Hx Urosepsis, Other GI Disorders History: Reports: Hx Chronic Renal Failure - not per patient, per H+P, Hx Renal Disease - DIALYSIS PATIENT for about 2 weeks 3 years ago. She has "weak kidneys." Denies: Hx Acute Renal Failure - current dx, Hx Benign Prostatic Hyperplasia , Hx Dialysis, Hx Kidney Infection, Hx Kidney Stones, Other Problems/ Disorders Musculoskeletal History: Reports: Hx Arthritis, Hx Back Problems, Hx Scoliosis, Other Musculoskeletal History - Degenerative Disc Disease Denies: Hx Bursitis, Hx Congenital Bone Abnormalities, Hx Fibromyalgia, Hx Gout, Hx Orthopedic Injury, Hx Osteoporosis, Hx Tendonitis Sensory History: Reports: Hx Contacts or Glasses Denies: Hx Cataracts, Hx Eye Injury, Hx Eye Prosthesis, Hx Glaucoma, Hx Macular Degeneration, Hx Vision Problem, Hx Deafness, Hx Hearing Aid, Hx Hearing Problem, Other Sensory Impairments Opthamlomology History: Reports: Hx Contacts or Glasses Denies: Hx Cataracts, Hx Eye Injury, Hx Eye Prosthesis, Hx Glaucoma, Hx Macular Degeneration, Hx Vision Problem, Other Sensory Impairments Neurological History: Denies: Hx Dementia, Hx Seizures Psychiatric History: Denies: Hx Anxiety, Hx Depression, Hx Panic Disorder, Hx Schizophrenia, Hx Bipolar Disorder, Hx Substance Abuse - Cancer History Hx Chemotherapy: No - Surgical History Surgery Procedure, Year, and Place: csection ~20 yrs ago at [facility] [place] Anesthesia Reactions: No - Immunization History Hx Pertussis Vaccination: No Immunizations Up to Date: Unable to Obtain/Confirm Infectious Disease History: No Infectious Disease History: Denies: Hx Clostridium Difficile, Hx Hepatitis, Hx Human Immunodeficiency Virus (HIV), Hx of Known/Suspected MRSA, Hx Shingles, Hx Tuberculosis, Hx Known/ Suspected VRE, Hx Known/Suspected VRSA, History Other Infectious Disease, Traveled Outside the [place] in Last 30 Days - Family History Known Family History: Positive: Cardiac Disease, Hypertension - Father has "disease." Negative: Renal Disease - Social History Occupation: Unemployed, Disabled Lives: With Family Alcohol Use: Rare Hx Substance Use: No Substance Use Type: Reports: None Hx Tobacco Use: Yes Smoking Status (MU): Former Smoker Review of Systems Constitutional: Negative Eyes: Negative Cardiovascular: Negative Positive: Shortness Of Breath Positive: no symptoms reported, see HPI Positive: Arthralgia, Myalgia Skin: Negative Neurological: Negative Psychological: Normal All Other Systems Reviewed And Are Negative: Yes Physical Exam Triage Information Reviewed: Yes Vital Signs On Initial Exam: Initial Vitals BP 148/83 09/02/16 08:13 Vital Signs Reviewed: Yes Appearance: Positive: Ill-Appearing, Pain Distress, Obese Skin: Positive: Warm, Skin Color Reflects Adequate Perfusion Head/Face: Positive: Normal Head/Face Inspection Eyes: Positive: EOMI, PEGGY, Conjunctiva Clear Neck: Positive: Supple, No Lymphadenopathy Respiratory/Lung Sounds: Positive: Clear to Auscultation, Breath Sounds Present Cardiovascular: Positive: Normal, RRR Abdomen Description: Positive: Nontender, Soft Bowel Sounds: Positive: Present Musculoskeletal: Positive: Pain @ - left CVA tenderness, left hip pain Neurological: Positive: Sensory/Motor Intact, Speech Normal Psychiatric: Positive: Normal AVPU Assessment: Alert - [place] Coma Scale Best Eye Response: 4 - Spontaneous Best Motor Response: 6 - Obeys Commands Best Verbal Response: 5 - Oriented Coma Scale Total: 15 Diagnostics - Vital Signs Vital Signs Temp Pulse Resp BP Pulse Ox 09/02/16 12:00 99 138/67 99 09/02/16 11:50 18 09/02/16 11:30 98 119/94 97 09/02/16 11:05 99 145/39 95 09/02/16 11:00 95 97 09/02/16 10:00 95 96 09/02/16 09:00 98 144/59 97 09/02/16 08:22 97.6 F 103 22 148/83 94 09/02/16 08:20 97.6 F 104 22 148/83 92 09/02/16 08:15 107 90 09/02/16 08:13 148/83 - Laboratory Lab Results: Lab Results 09/02/16 09/02/16 09/02/16 Range/Units 09:03 09:03 09:03 WBC 17.3 H (3.5-10.8) 10^3/ul RBC 3.27 L (4.0-5.4) 10^6/ul Hgb 10.1 L (12.0-16.0) g/dl Hct 32 L (35-47) % MCV 98 H (80-97) fL MCH 31 (27-31) pg MCHC 31 (31-36) g/dl RDW 16 H (10.5-15) % Plt Count 256 (150-450) 10^3/ul MPV 8 (7.4-10.4) um3 Neut % (Auto) 86.5 H (38-83) % Lymph % (Auto) 4.9 L (25-47) % [place] % (Auto) 7.1 (1-9) % Eos % (Auto) 0.4 (0-6) % Baso % (Auto) 1.1 (0-2) % Absolute Neuts (auto) 15.0 H (1.5-7.7) 10^3/ul Absolute Lymphs (auto) 0.9 L (1.0-4.8) 10^3/ul Absolute Monos (auto) 1.2 H (0-0.8) 10^3/ul Absolute Eos (auto) 0.1 (0-0.6) 10^3/ul Absolute Basos (auto) 0.2 (0-0.2) 10^3/ul Absolute Nucleated RBC 0.02 10^3/ul Nucleated RBC % 0.1 ESR 88 H (0-30) mm/Hr INR (Anticoag Therapy) 1.25 H (0.89-1.11) Sodium 142 (133-145) mmol/L Potassium 4.1 (3.5-5.0) mmol/L Chloride 111 (101-111) mmol/L Carbon Dioxide 20 L (22-32) mmol/L Anion Gap 11 (2-11) mmol/L BUN 100 H (6-24) mg/dL Creatinine 2.51 H (0.51-0.95) mg/dL Est GFR ( Amer) 25.6 (>60) Est GFR (Non-Af Amer) 19.9 (>60) BUN/Creatinine Ratio 39.8 H (8-20) Glucose 81 (70-100) mg/dL POC Glucose (mg/dL) (74-106) mg/dL Lactic Acid (0.5-2.0) mmol/L Calcium 9.0 (8.6-10.3) mg/dL Total Bilirubin 0.60 (0.2-1.0) mg/dL AST 67 H (13-39) U/L ALT 17 (7-52) U/L Alkaline Phosphatase 93 (34-104) U/L Total Creatine Kinase 2082 H (10-223) U/L C-Reactive Protein 39.27 H (< 5.00) mg/L Total Protein 6.7 (6.4-8.9) g/dL Albumin 3.2 (3.2-5.2) g/dL Globulin 3.5 (2-4) g/dL Albumin/Globulin Ratio 0.9 L (1-3) Procalcitonin (<0.6) ng/mL Urine Color Urine Appearance Urine pH (5-9) Ur Specific [place] (1.010-1.030) Urine Protein (Negative) Urine Ketones (Negative) Urine Blood (Negative) Urine Nitrate (Negative) Urine Bilirubin (Negative) Urine Urobilinogen (Negative) Ur Leukocyte Esterase (Negative) Urine WBC (Auto) (Absent) Urine RBC (Auto) (Absent) Ur Squamous Epith Cells (Absent) Urine Bacteria (Absent) Urine Glucose (Negative) 09/02/16 09/02/16 09/02/16 Range/Units 09:03 09:03 09:35 WBC (3.5-10.8) 10^3/ul RBC (4.0-5.4) 10^6/ul Hgb (12.0-16.0) g/dl Hct (35-47) % MCV (80-97) fL MCH (27-31) pg MCHC (31-36) g/dl RDW (10.5-15) % Plt Count (150-450) 10^3/ul MPV (7.4-10.4) um3 Neut % (Auto) (38-83) % Lymph % (Auto) (25-47) % [place] % (Auto) (1-9) % Eos % (Auto) (0-6) % Baso % (Auto) (0-2) % Absolute Neuts (auto) (1.5-7.7) 10^3/ul Absolute Lymphs (auto) (1.0-4.8) 10^3/ul Absolute Monos (auto) (0-0.8) 10^3/ul Absolute Eos (auto) (0-0.6) 10^3/ul Absolute Basos (auto) (0-0.2) 10^3/ul Absolute Nucleated RBC 10^3/ul Nucleated RBC % ESR (0-30) mm/Hr INR (Anticoag Therapy) (0.89-1.11) Sodium (133-145) mmol/L Potassium (3.5-5.0) mmol/L Chloride (101-111) mmol/L Carbon Dioxide (22-32) mmol/L Anion Gap (2-11) mmol/L BUN (6-24) mg/dL Creatinine (0.51-0.95) mg/dL Est GFR ( Amer) (>60) Est GFR (Non-Af Amer) (>60) BUN/Creatinine Ratio (8-20) Glucose (70-100) mg/dL POC Glucose (mg/dL) (74-106) mg/dL Lactic Acid 1.2 (0.5-2.0) mmol/L Calcium (8.6-10.3) mg/dL Total Bilirubin (0.2-1.0) mg/dL AST (13-39) U/L ALT (7-52) U/L Alkaline Phosphatase (34-104) U/L Total Creatine Kinase (10-223) U/L C-Reactive Protein (< 5.00) mg/L Total Protein (6.4-8.9) g/dL Albumin (3.2-5.2) g/dL Globulin (2-4) g/dL Albumin/Globulin Ratio (1-3) Procalcitonin 0.1 (<0.6) ng/mL Urine Color Straw Urine Appearance Clear Urine pH 5.0 (5-9) Ur Specific [place] 1.009 L (1.010-1.030) Urine Protein 1+(30 mg/dl) H (Negative) Urine Ketones Negative (Negative) Urine Blood 3+ H (Negative) Urine Nitrate Negative (Negative) Urine Bilirubin Negative (Negative) Urine Urobilinogen Negative (Negative) Ur Leukocyte Esterase Negative (Negative) Urine WBC (Auto) Absent (Absent) Urine RBC (Auto) 1+(3-5/hpf) H (Absent) Ur Squamous Epith Cells Present H (Absent) Urine Bacteria Absent (Absent) Urine Glucose Negative (Negative) 09/02/16 Range/Units 11:01 WBC (3.5-10.8) 10^3/ul RBC (4.0-5.4) 10^6/ul Hgb (12.0-16.0) g/dl Hct (35-47) % MCV (80-97) fL MCH (27-31) pg MCHC (31-36) g/dl RDW (10.5-15) % Plt Count (150-450) 10^3/ul MPV (7.4-10.4) um3 Neut % (Auto) (38-83) % Lymph % (Auto) (25-47) % [place] % (Auto) (1-9) % Eos % (Auto) (0-6) % Baso % (Auto) (0-2) % Absolute Neuts (auto) (1.5-7.7) 10^3/ul Absolute Lymphs (auto) (1.0-4.8) 10^3/ul Absolute Monos (auto) (0-0.8) 10^3/ul Absolute Eos (auto) (0-0.6) 10^3/ul Absolute Basos (auto) (0-0.2) 10^3/ul Absolute Nucleated RBC 10^3/ul Nucleated RBC % ESR (0-30) mm/Hr INR (Anticoag Therapy) (0.89-1.11) Sodium (133-145) mmol/L Potassium (3.5-5.0) mmol/L Chloride (101-111) mmol/L Carbon Dioxide (22-32) mmol/L Anion Gap (2-11) mmol/L BUN (6-24) mg/dL Creatinine (0.51-0.95) mg/dL Est GFR ( Amer) (>60) Est GFR (Non-Af Amer) (>60) BUN/Creatinine Ratio (8-20) Glucose (70-100) mg/dL POC Glucose (mg/dL) 117 H (74-106) mg/dL Lactic Acid (0.5-2.0) mmol/L Calcium (8.6-10.3) mg/dL Total Bilirubin (0.2-1.0) mg/dL AST (13-39) U/L ALT (7-52) U/L Alkaline Phosphatase (34-104) U/L Total Creatine Kinase (10-223) U/L C-Reactive Protein (< 5.00) mg/L Total Protein (6.4-8.9) g/dL Albumin (3.2-5.2) g/dL Globulin (2-4) g/dL Albumin/Globulin Ratio (1-3) Procalcitonin (<0.6) ng/mL Urine Color Urine Appearance Urine pH (5-9) Ur Specific [place] (1.010-1.030) Urine Protein (Negative) Urine Ketones (Negative) Urine Blood (Negative) Urine Nitrate (Negative) Urine Bilirubin (Negative) Urine Urobilinogen (Negative) Ur Leukocyte Esterase (Negative) Urine WBC (Auto) (Absent) Urine RBC (Auto) (Absent) Ur Squamous Epith Cells (Absent) Urine Bacteria (Absent) Urine Glucose (Negative) Result Diagrams: 09/02/16 09:03 09/02/16 09:03 Lab Statement: Any lab studies that have been ordered have been reviewed, and results considered in the medical decision making process. Lower Extremity Course/Dx - Course Course Of Treatment: Pain throughout left hip. Labs drawn with CK at 2086. Spoke with Dr Tsang who agrees to admit based on labs. Unable to ambulate at this time. Urine cath with good output. Given 1L fluids d/t kidney function. - Diagnoses Differential Diagnosis/HQI/PQRI: Positive: Fracture (Closed), Fracture (Open), Strain Provider Diagnoses: Hip pain, Elevated CK Discharge - Discharge Plan Condition: Fair Disposition: ADMITTED TO [facility]
[2016-09-02] MEDS: Insulin LISPRO* 1 UNITS UNIT SUBCUT SCH (17:19)
[2016-09-02] MEDS: Amitriptyline TAB* 25 MG PO SCH (21:42)
[2016-09-02] MEDS: Atorvastatin* 20 MG TAB PO SCH (21:42)
[2016-09-02] MEDS: cloNIDine TAB* 0.1 MG PO SCH (21:42)
[2016-09-02] MEDS: Metoprolol Tartrate TAB* 100 MG TAB PO SCH (21:43)
--- NOTE | 2016-09-02 23:07 | CONS ---
CC: [facility]; Dr. Joiner* CONSULTATION REPORT: DATE OF CONSULT: 09/02/16 REFERRING PROVIDER: David Jay NP. REASON FOR CONSULTATION: Nonhealing ulcer in the left great toe. HISTORY OF PRESENT ILLNESS: Ms. Lorna Mantilla is a 56-year-old woman known to me from recent care in the [facility] for a nonhealing ulcer in the medial aspect of her left great toe. This has been present for about 6 months. It started with an ingrown toenail. She has been seen in the last 6 weeks in the Wound Center and has undergone a workup which included treatment with oral and IV antibiotics, minimal debridement. An MRI of the foot, which showed concern for probable osteomyelitis of the toe. More recently, she underwent a left superficial femoral artery angioplasty with Dr. Nj Hook last week to improve the inflow of her arterial supply, to expedite healing. Unfortunately, she was not able to keep her last [facility] Center visit last week. Apparently, she had been at home this weekend, complaining of more left hip discomfort. Apparently, she had fallen out of bed and spent the night on the floor. When her was able to help her this morning, she presented to the emergency room. She has had some prior problems with chronic left hip pain in the past, but it was never this severe. In the emergency room, she was noted to have a white count of 17,000, and an elevated CK. Her renal function, which was poor, does not appear to be significantly changed, however, and she was afebrile with stable vital signs. She has been admitted for hydration and probable IV antibiotics for management of her toe management. Surgical consultation was obtained. PAST MEDICAL HISTORY: 1. Peripheral vascular disease. 2. Morbid obesity. 3. Hypertension. 4. Diabetes. 5. Chronic kidney disease, stage IV. 6. Obstructive lung disease. PAST SURGICAL HISTORY: section. MEDICATIONS: Include: 1. Aspirin. 2. Plavix. 3. Actos. 4. Lipitor. 5. Elavil. 6. Ventolin. 7. Lopressor. 8. Vitamin D. 9. Santyl. 10. Glipizide. 11. Catapres. ALLERGIES: Include LISINOPRIL. SOCIAL HISTORY: She is a former smoker. She smoked about 15 to 20 years ago, but quit several years ago. She does not drink alcohol. She is and her surrogate decision maker is her . PHYSICAL EXAMINATION: Temperature 97.6, pulse 89, blood pressure 112/78, respirations 20. In general, she is a morbidly obese female, in bed, does not appear to be in acute distress. She is awake, alert, and conversive, and actually quite pleasant. Abdomen was soft, nondistended. She has no tenderness. Lungs are clear to auscultation, with normal respiratory effort. On the left foot, I appreciate no palpable pulses. The foot is warm and pink, however. The medial aspect of the left great toe, approximately 2 cm x 3 cm, shows dry gangrene without evidence of abscess, cellulitis or even significant edema. There is no swelling in the calf. IMPRESSION: Nonhealing ulcer in the left great toe with probable osteomyelitis and significant peripheral vascular disease and multiple medical issues, as described above. She recently underwent a left superficial femoral artery angioplasty with Dr. Hook. She does state now she is not having any further rest pain in the foot, which is good for her. She has no fever, shakes or chills, and there has been no further drainage. She is being admitted after falling and lying on the floor overnight, apparently having rhabdomyolysis, although her renal function appears to be stable. At this point, I feel that the toe looks better than the last time I saw her about 2 weeks ago in the [facility] Center. Previously, it had a component of wet gangrene with an odor, now this has eschared over without evidence of drainage or obvious abscess and this may be most likely secondary to antibiotics as well as the improvement in her arterial inflow with the procedure done last week. As far as I can tell, this was an initial right femoral artery puncture with left lower extremity intervention and I do not see why this would have caused the left hip discomfort that she is describing. CT scan of the abdomen and pelvis showed some mild edema in the left thigh, but no intraabdominal or retroperitoneal abnormality. At this point, I feel the left toe appears improved. Dr. Joiner is going to see her and it appears there is the possibility of osteomyelitis, which may warrant amputation of this left great toe or she could possibly pursue the option of the terminal manager IV antibiotics with a PICC line and aggressive wound care. In addition, as her course progresses, I recommend that we consult Dr. Grzegorz Zelaya from orthopedics for his opinion regarding optimal management of left great toe with probable osteomyelitis along with multiple medical issues including peripheral vascular disease. Thank you very much for the consultation. We will follow her closely with you. At this point, we will keep a dry dressing on the wound. No debridement is indicated at this point. [id number]/CPS #: [id number] MTDD
[2016-09-03] MEDS: Heparin VIAL(*) 5000 UNITS/ML VIAL (FIVE THOUSAND) SUBCUT SCH ×3 (05:19→21:48)
[2016-09-03] MEDS: oxyCODONE/Acetamin 5/325 MG* TAB PO PRN ×2 (05:27→14:46)
[2016-09-03 05:34] LABS: Hematocrit 30 % (35-47); Mean Corpuscular HGB Conc 30 g/dl (31-36); Mean Corpuscular Hemoglobin 30 pg (27-31); Mean Corpuscular Volume 100 fL (80-97); Mean Platelet Volume 8 um3 (7.4-10.4); Red Blood Count 2.96 10^6/ul (4.0-5.4); Red Cell Distribution Width 16 % (10.5-15); White Blood Count 14.1 10^3/ul (3.5-10.8)
[2016-09-03 05:44] LABS: Comments Flag Yes
[2016-09-03 05:52] LABS: BUN/Creatinine Ratio 33.7 (8-20); Calcium 8.4 mg/dL (8.6-10.3); EGFR African American 24.1 (>60); EGFR Non-African American 18.8 (>60); Potassium 4.8 mmol/L (3.5-5.0)
[2016-09-03 05:57] LABS: Vancomycin Random 14.7 mcg/mL
[2016-09-03] MEDS ORDERED: Vancomycin Random Level* NOTE FOLLOW UP ONE (06:00)
[2016-09-03] MEDS ORDERED: Vancomycin(*) 1,000 MG in NS 0.9% 250 ML* 250 ML IVPB SCH (09:00)
[2016-09-03] MEDS: Nystatin TOP POWDER* 15 GM BTL TOPICAL SCH ×3 (09:22→21:48)
[2016-09-03] MEDS: Metoprolol Tartrate TAB* 100 MG TAB PO SCH ×2 (09:22→21:48)
[2016-09-03] MEDS: Insulin LISPRO* 1 UNITS UNIT SUBCUT SCH ×3 (09:22→17:14)
[2016-09-03] MEDS: Aspirin EC Low Dose* 81 MG TAB.EC PO SCH (09:22)
[2016-09-03] MEDS: Clopidogrel TAB* 75 MG PO SCH (09:22)
--- NOTE | 2016-09-03 09:35 | RAD ---
Indication: Left hip pain. CT of the left lower extremity was obtained in the axial plane. Coronal and sagittal reconstructed images were obtained. The hip joint demonstrates some mild degenerative changes. No fracture is identified. The knee joint demonstrates no evidence of joint effusion. No fracture of the femur, tibia or fibula is identified. Patella is unremarkable. Degenerative changes of the patellofemoral joint is present. There is edema in the left calf subcutaneous tissue. This may be due to venous stasis. Multiple calcifications are noted in the subcutaneous tissue as well as in the vessels suggestive of atherosclerosis. Multiple phleboliths are also noted. No drainable fluid collections are noted. The Achilles tendon is intact. IMPRESSION: No fracture is identified. Atherosclerosis is noted of the left lower extremity vessels. In addition subcutaneous edema with multiple calcifications in the superficial venous structures are noted which may represent phleboliths.
[2016-09-03] MEDS: Collagenase 250 MG/GM OINT* 30 GM TOPICAL SCH (12:06)
--- NOTE | 2016-09-03 14:23 | PN ---
Subjective Date of Service: 09/03/16 Interval History: HOSPITALIST PROGRESS NOTE Patient seen and examined at bedside. She states left hip pain is less intense, but still present. She thinks her left hallux is much improved from before. Her hip pain had started prior to her fall. She thinks she fell because she could not tolerate weight bearing on the left and was unable to get back in bed and ended up sliding to the floor. Family History: Unchanged from Admission Social History: Unchanged from Admission Past Medical History: Unchanged from Admission Objective Active Medications: Acetaminophen (Tylenol Tab*) 650 mg PO Q4H PRN PRN Reason: FEVER/PAIN Albuterol (Ventolin Hfa Inhaler*) 1 puff INH Q4H PRN PRN Reason: SOB/WHEEZING Amitriptyline HCl (Elavil Tab*) 25 mg PO BEDTIME [facility] Last Admin: 09/02/16 21:42 Dose: 25 mg Aspirin (Aspirin Ec Low Dose*) 81 mg PO DAILY [facility] Last Admin: 09/03/16 09:22 Dose: 81 mg Atorvastatin Calcium (Lipitor*) 20 mg PO BEDTIME [facility] Last Admin: 09/02/16 21:42 Dose: 20 mg Clonidine HCl (Catapres Tab*) 0.1 mg PO BEDTIME [facility] Last Admin: 09/02/16 21:42 Dose: 0.1 mg Clopidogrel Bisulfate (Plavix Tab*) 75 mg PO DAILY [facility] Last Admin: 09/03/16 09:22 Dose: 75 mg Collagenase (Santyl 250 Mg/Gm Oint*) 1 applic TOPICAL DAILY [facility] Last Admin: 09/03/16 12:06 Dose: 1 applic Dextrose (D50w Syringe 50 Ml*) 12.5 gm IV PUSH .FOR FS < 60 - SS PRN PRN Reason: FS < 60 Heparin Sodium (Porcine) (Heparin Vial(*)) 5,000 units SUBCUT Q8HR [facility] Last Admin: 09/03/16 12:58 Dose: 5,000 units Sodium Chloride (Ns 0.9% 1000 Ml*) 1,000 mls @ 100 mls/hr IV PER RATE [facility] Cefepime HCl 1 gm/ Sodium (Chloride) 50 mls @ 100 mls/hr IVPB 1800 [facility] Last Admin: 09/02/16 19:18 Dose: 100 mls/hr Vancomycin HCl 1,000 mg/ (Sodium Chloride) 250 mls @ 166.667 mls/hr IVPB Q12H [facility] Last Admin: 09/03/16 09:21 Dose: 166.667 mls/hr Insulin Human Lispro (Humalog*) 0 units SUBCUT AC [facility] PRN Reason: Protocol Last Admin: 09/03/16 12:07 Dose: Not Given Metoprolol Tartrate (Lopressor Tab*) 100 mg PO BID [facility] Last Admin: 09/03/16 09:22 Dose: 100 mg Nystatin (Nystatin Top Powder*) 1 applic TOPICAL TID [facility] Last Admin: 09/03/16 12:59 Dose: 1 applic Oxycodone/Acetaminophen (Percocet 5/325 Tab*) 1 tab PO Q4H PRN PRN Reason: PAIN Last Admin: 09/03/16 05:27 Dose: 1 tab Pharmacy Consult (Vancomycin Per Pharmacy*) 1 note FOLLOW UP . PRN PRN Reason: PER PROTOCOL Pharmacy Profile Note (Vancomycin Trough Check) 1 note FOLLOW UP 0900 ONE Stop: 09/05/16 09:01 Vital Signs 09/02/16 09/02/16 09/02/16 22:52 23:25 23:43 Temperature 97.6 F Pulse Rate 95 86 Respiratory 18 21 Rate Blood Pressure 142/40 (mmHg) O2 Sat by Pulse 97 94 Oximetry Oxygen Devices in Use Now: None Appearance: Morbid obese lady lying in bed in NAD. Eyes: No Scleral Icterus Ears/Nose/Mouth/Throat: Mucous Membranes Moist Neck: Trachea Midline Respiratory: Symmetrical Chest Expansion and Respiratory Effort, Clear to Auscultation Cardiovascular: RRR - Normal S1 and S2 Abdominal: - - Obese, BS+ Extremities: - - left hip ROM limited due to pain. Left hallux dry gangrene, no significant drainage or erythema. Bilateral inguinal areas show no hematoma/ ecchymosis. Neurological: Alert and Oriented x 3, NL Muscle Strength and Tone Lines/Tubes/Other Access: Clean, Dry and Intact Peripheral IV Nutrition: Taking PO's Result Diagrams: 09/03/16 05:11 09/03/16 05:11 Assess/Plan/Problems-Billing Assessment: Mrs. Mantilla is a 56yo F with PMH of morbid obesity with BMI 59, type 2 diabetes, PVD, HTN, CKD stage 4, COPD, left hallux wound with osteomyelitis, who presented to ED with c/o left hip pain and fall, found to have rhabdomyolisis. - Patient Problems (1) Sepsis Comment: - Patient met sepsis criteria with leukocytosis and tachycardia. - Source is likely her toe, but her left hip/LLE is on the differential. - Follow cultures. (2) Left hip pain Comment: - Patient describes similar episodes of hip pain in the past, but not as severe as this one. She's usually able to ambulate and this time pain was severe and she fell. - Denies back or buttock pain, and pain does not radiate to LLE. Her prior episodes are suggestive of radiculopathy, but this one seems to be different. - CT abdome/pelvis/lumbar spine did not show signs of hematoma. - Bilateral inguinal areas shows no palpable hematoma. - Will check CT LLE to look for signs of infection, including myositis, as she has CPK elevation. (3) Diabetic toe ulcer Comment: - Patient was admitted end of July with infected left hallux ulcer. - MRA (limited exam) of the LLE at that time showed proximal L SFA occlusion with distal reconstitution of flow, little arterial run off signal in distal B/ L peroneal and posterior tibial arteries. - MRI done at that time showed cellulitis, myositis, and left hallux osteomyeliytis. - D/c on doxycycline. - Surgery input appreciated - toe before had a component of wet gangrene and now it is dry. With concern for osteomyelitis, recommended Ortho evaluation re: indication for amputation. - ID consult requested. - Continue Cefepime and Vancomycin empirically. (4) PVD (peripheral vascular disease) Comment: - She underwent baloon angioplasty of Left SFA at multiple levels, using a right common femoral artery access on 08/29/16. - Continue Aspirin, Plavix, and Atorvastatin. (5) Rhabdomyolysis (6) HTN (hypertension) Comment: - Controlled. - Continue Metoprolol and Clonidine. (7) Diabetes Comment: - Last HbA1c was 6.9%. - Continue Lispro SS. (8) CKD stage 4 due to type 2 diabetes mellitus Comment: - Renal function remains stable - continue to monitor. (9) COPD (chronic obstructive pulmonary disease) Comment: - Stable. - Continue prn albuterol. (10) DVT prophylaxis Comment: - SQ heparin. (11) Full code status Status and Disposition: Inpatient.
[2016-09-03] MEDS: NS 0.9% 1000 ML* 1,000 ML IV SCH (19:00)
--- NOTE | 2016-09-03 21:14 | CONS ---
CONSULTATION REPORT: DATE OF CONSULT: 09/03/16 REQUESTING PROVIDER: David Jay NP CONSULTING SERVICE: Infectious Disease. REASON FOR CONSULT: Left great toe infection and left hip pain. IMPRESSION: 1. Admitted with left hip pain with elevated CK. Pelvis CT did not show osseous lesions of the hip . There was no log roll, so septic hip seems less likely, question rhabdomyolysis. 2. Left great toe dry gangrene in the setting of peripheral arterial disease, status post lower ext remity intervention, likely underlying osteomyelitis. Antibiotics are unlikely to cure this. 3. Morbid obesity. 4. Diabetes. 5. Chronic kidney disease. RECOMMENDATIONS: We will stop her vancomycin, there is no MRSA has been grown yet and her recent tr eatment course, I will change the cefepime to ceftriaxone. I think it will be important to have Dr. Zelaya see her to evaluate for amputation of the great toe, which the patient is willing to conside r. HISTORY OF PRESENT ILLNESS: This is a 56-year-old diabetic woman admitted with left hip pain. She was recently in the hospital for left great toe infection and treated with bedside debridement of an abscess and broad-spectrum antibiotics, which she had continued at home. She had the onset of left hip pain the night on the , was immobilized in bed due to pain and came into the hospital yeste rd morning and x-ray of the hip was unremarkable as was the CT of the abdomen and pelvis. There w as also swelling of the left thigh. CK was done, which was 1999, is down to 850 today. She has had no fevers here. She had no fevers, chills, or sweats at home. She is taking antibiotic pills. Bl ood cultures were sent, are pending. She was started on vancomycin and cefepime. CT of the left fo ot was done that showed no fracture, subcutaneous edema. She thinks her toe was a little bit better , less red than it had been, and there is no drainage. PAST MEDICAL HISTORY: 1. Morbid obesity. 2. Insulin-dependent diabetes. 3. Hypertension. 4. Chronic kidney disease, stage 4. 5. COPD. 6. Left great toe ulcer. 7. Peripheral vascular disease, status post superficial femoral artery stent on the left on 7. 8. Status post . 9. History of hemodialysis catheter, which has since been removed. MEDICATIONS: 1. Tylenol. 2. Albuterol. 3. Amitriptyline. 4. Aspirin. 5. Lipitor. 6. Plavix. 7. Heparin subcutaneous injections. 8. Metoprolol. 9. Cefepime 1 g once a day. 10. Vancomycin. 11. Clonidine. ALLERGIES: LISINOPRIL. FAMILY HISTORY: There is a family history of pancreatic cancer in her father, diabetes. SOCIAL HISTORY: She lives in [place] with her . No travel or sick contacts. REVIEW OF SYSTEMS: All negative to full review of systems except as noted above. PHYSICAL EXAM: Vital Signs: Temperature is 36.4, heart rate 60, respiratory rate 16, blood pressur e 124/ , O2 sat 92% on room air. General: She is awake, not in distress. HEENT: There is no conjunctival hemorrhage. Oropharynx without lesions. Neurologic: She is oriented x3, follows all commands. Moves all extremities. Sensation is decreased to light touch in her left foot. Neck is supple without nuchal rigidity. Lymph Nodes: There is no inguinal or axillary lymphadenopathy. He art: Regular rate and rhythm without murmurs, rubs, or gallops. Lungs: Clear to auscultation bila terally. Abdomen: Soft, nontender, and nondistended. There are bowel sounds present. Skin: Ther e is no rash or splinter hemorrhages. Musculoskeletal: There is no log roll on the left. There is no pain with left hip flexion or extension. There is tenderness to palpation over the left lateral hip. On the left medial toe, there is a large eschar with surrounding rim of erythema. There is f oul odor. LABORATORY DATA: Creatinine 2.6. White blood cell count 14, hemoglobin 9, platelets 246. Please see impressions and recommendations outlined above. Thanks for asking me to see Ms. Mantilla in consultation. [id number]/[facility] #: [id number]
[2016-09-03] MEDS: Atorvastatin* 20 MG TAB PO SCH (21:47)
[2016-09-03] MEDS: cloNIDine TAB* 0.1 MG PO SCH (21:47)
[2016-09-03] MEDS: Amitriptyline TAB* 25 MG PO SCH (21:47)
--- NOTE | 2016-09-03 21:47 | CONS ---
CONSULTATION REPORT: DATE OF CONSULT: 09/03/16 HISTORY OF PRESENT ILLNESS: Lorna is a very pleasant 56-year-old obese female , who has had recent left SFA angioplasty. This was in attempt to restore blood flow to her necrotic left great toe. She says the left great toe has been ulcerated for a couple of months perhaps related to close toenail trimming or perhaps some blunt trauma. At any rate, she was admitted yesterday with some elements of sepsis and rhabdomyolysis. Her white count was 17,000 today. Her white count is improving. The creatine kinase is lowering and her glucose is under reasonable control. The patient has been followed by the wound clinic and Dr. Boswell's note is in the chart. The patient has some mild pain at the left toe. Nothing severe, only with contact. The patient is aroused from some afternoon sleeping. She is a pleasant lady, who is a good historian. I believe I saw her previously in my office. She is happy to have her dressing changed. The left foot itself is warm with some edema diffusely over the mid foot. Toes, two, three, four and five do not show ulcerations and they have reasonable capillary refill. The great toe, however, is dry and necrotic from the mid proximal phalanx distally along the medial half. It is dry gangrene at this point, not particularly soupy nor foul smelling. Her MRI done in late July showed osteomyelitis of the distal phalanx of the great toe. ASSESSMENT AND PLAN: At this point, the patient appears to have had some increase blood flow to her foot, although obviously the great toe itself is necrotic. This would expedite healing with MTP disarticulation which I think would give plenty of good healing tissue and reasonable margin from the blanquita osteomyelitis of the distal phalanx. This could be done on an elective basis or while the patient is here in the hospital. I will be leaving for a couple of days this week, but I will try to coordinate these thoughts with her surgeon and duplication specialist and the medical team. [id number]/[facility] #: [id number] MTDD
[2016-09-04] MEDS: Acetaminophen TAB* 325 MG PO PRN (01:22)
[2016-09-04 05:30] LABS: Hematocrit 28 % (35-47); Hemoglobin 8.4 g/dl (12.0-16.0); Mean Corpuscular HGB Conc 31 g/dl (31-36); Mean Corpuscular Hemoglobin 31 pg (27-31); Mean Corpuscular Volume 101 fL (80-97); Mean Platelet Volume 9 um3 (7.4-10.4); Red Blood Count 2.73 10^6/ul (4.0-5.4); Red Cell Distribution Width 16 % (10.5-15); White Blood Count 9.6 10^3/ul (3.5-10.8)
[2016-09-04 05:35] LABS: Add Diff/Slide Review? Slide Review Added; Comments Flag Yes
[2016-09-04 05:47] LABS: BUN/Creatinine Ratio 30.9 (8-20); C Reactive Protein 72.88 mg/L (< 5.00); Calcium 8.3 mg/dL (8.6-10.3); EGFR African American 18.5 (>60); EGFR Non-African American 14.4 (>60); Potassium 5.1 mmol/L (3.5-5.0)
[2016-09-04] MEDS: Heparin VIAL(*) 5000 UNITS/ML VIAL (FIVE THOUSAND) SUBCUT SCH ×3 (05:50→21:28)
[2016-09-04] MEDS: NS 0.9% 1000 ML* 1,000 ML IV SCH (05:50)
[2016-09-04] MEDS: Insulin LISPRO* 1 UNITS UNIT SUBCUT SCH ×3 (09:12→16:50)
[2016-09-04] MEDS: Clopidogrel TAB* 75 MG PO SCH (09:13)
[2016-09-04] MEDS: Aspirin EC Low Dose* 81 MG TAB.EC PO SCH (09:13)
[2016-09-04] MEDS: Metoprolol Tartrate TAB* 100 MG TAB PO SCH ×4 (09:13→21:27)
[2016-09-04] MEDS: Collagenase 250 MG/GM OINT* 30 GM TOPICAL SCH (09:14)
[2016-09-04] MEDS: Nystatin TOP POWDER* 15 GM BTL TOPICAL SCH ×3 (09:14→21:24)
--- NOTE | 2016-09-04 09:45 | PN ---
Progress Note - Progress Note Date of Service: 09/04/16 SOAP: Subjective: CC: leukocytosis HPI: 56 year old woman with left great toe chronic wound and osteomyelitis, admitted with leukocytosis and was down overnight. Left thigh pain where she was down, gradually improving. Appetite is good. No fever, rash, or diarrhea. Objective: [] Vital Signs Temp 36.4 C 09/04/16 04:23 Pulse 63 09/04/16 04:23 Resp 16 09/04/16 04:23 BP 120/36 09/04/16 04:23 Pulse Ox 93 09/04/16 04:23 Intake & Output 09/03/16 09/04/16 09/04/16 18:59 06:59 18:59 Intake Total 1565 1374 Output Total 125 Balance 1565 1249 Intake: IV Fluids 320 994 NS (0.9%) 320 994 IVPB 365 ABX - CEFTRIAXONE 105 Vanco 260 Oral 880 380 Output: Urine 125 Other: Estimated Void Medium # Bowel Movements 0 # Voids 2 2 Gen:Awake, no distress Neuro: OX3, follows all commands HEENT:PERRL, MMM Neck:supple Abd:Soft non distended MSK: left toe not unwrapped Laboratory Results - last 24 hr 09/03/16 09/03/16 09/04/16 11:47 16:40 05:08 WBC RBC Hgb Hct MCV MCH MCHC RDW Plt Count MPV Neut % (Auto) Lymph % (Auto) [place] % (Auto) Eos % (Auto) Baso % (Auto) Absolute Neuts (auto) Absolute Lymphs (auto) Absolute Monos (auto) Absolute Eos (auto) Absolute Basos (auto) Absolute Nucleated RBC Nucleated RBC % Sodium 138 Potassium 5.1 H Chloride 112 H Carbon Dioxide 18 L Anion Gap 8 BUN 103 H Creatinine 3.33 H Est GFR ( Amer) 18.5 Est GFR (Non-Af Amer) 14.4 BUN/Creatinine Ratio 30.9 H Glucose 123 H POC Glucose (mg/dL) 124 H 157 H Calcium 8.3 L C-Reactive Protein 72.88 H 09/04/16 09/04/16 05:08 07:44 WBC 9.6 RBC 2.73 L Hgb 8.4 L Hct 28 L MCV 101 H MCH 31 MCHC 31 RDW 16 H Plt Count 201 MPV 9 Neut % (Auto) 67.5 Lymph % (Auto) 15.2 L [place] % (Auto) 9.4 H Eos % (Auto) 7.6 H Baso % (Auto) 0.3 Absolute Neuts (auto) 6.5 Absolute Lymphs (auto) 1.5 Absolute Monos (auto) 0.9 H Absolute Eos (auto) 0.7 H Absolute Basos (auto) 0 Absolute Nucleated RBC 0.09 Nucleated RBC % 0.9 Sodium Potassium Chloride Carbon Dioxide Anion Gap BUN Creatinine Est GFR ( Amer) Est GFR (Non-Af Amer) BUN/Creatinine Ratio Glucose POC Glucose (mg/dL) 153 H Calcium C-Reactive Protein Assessment: 1. Left great toe dry gangrene, cellulitis, and chronic osteomyelitis 2. Leukocytosis, elevated CRP, sepsis due to #1 3. morbid obesity 4. PAD s/p L SFA angioplasty 5. diabetes with neuropathy 6. CKD, stage 4 Plan: 1. continue ceftriaxone 2 gm daily, appreciate ortho eval and general surgery input. Likely technician terminal and repeater IV antibiotics after debridement. Discussed with Dr Moody
--- NOTE | 2016-09-04 11:55 | PN ---
Progress Note - Progress Note Date of Service: 09/04/16 SOAP: Subjective: She has no pain in the left foot or toe Objective: Temp Pulse Resp BP Pulse Ox 97.5 F 63 16 120/36 93 09/04/16 04:23 09/04/16 04:23 09/04/16 04:23 09/04/16 04:23 09/04/16 04:23 PEX: Left great toe medial aspect with dry eschar without change. No surrounding redness or purulence. There is no cellulitis on the proximal foot. WBC 09/02/16 09/03/16 09/04/16 09:03 05:11 05:08 WBC 17.3 10^3/ul H 10^3/ul 14.1 10^3/ul H 10^3/ul 9.6 10^3/ul 10^3/ul (3.5-10.8) (3.5-10.8) (3.5-10.8) Assessment: Non-healing left great toe ulcer with probable osteomyelitis of the distal phalanx S/P angioplasty of the left SFA with good result Plan: I discussed care with both Dr. Joiner and Dr. Zelaya. I agree that probably the best course of action is amputation of the left great toe. She has a significant ulcer on the toe that I feel will be difficult to heal with aggressive wound care and with osteomyelitis present I suspect that we will never be able to adequately treat this with long term care administrator antibiotics. I will defer to Dr. Zelaya to proceed with amputation as his schedule permits. Will continue to follow.
[2016-09-04] MEDS ORDERED: Fluconazole 100 MG TAB* TAB PO ONE (15:00)
--- NOTE | 2016-09-04 15:18 | PN ---
Subjective Date of Service: 09/04/16 Interval History: HOSPITALIST PROGRESS NOTE Patient seen and examined at bedside. She feels a little better today. Left hip pain is less intense and she was able to get out of bed with PT. C/o vaginal itching. Family History: Unchanged from Admission Social History: Unchanged from Admission Past Medical History: Unchanged from Admission Objective Active Medications: Acetaminophen (Tylenol Tab*) 650 mg PO Q4H PRN PRN Reason: FEVER/PAIN Last Admin: 09/04/16 01:22 Dose: 650 mg Albuterol (Ventolin Hfa Inhaler*) 1 puff INH Q4H PRN PRN Reason: SOB/WHEEZING Amitriptyline HCl (Elavil Tab*) 25 mg PO BEDTIME [facility] Last Admin: 09/03/16 21:47 Dose: 25 mg Aspirin (Aspirin Ec Low Dose*) 81 mg PO DAILY [facility] Last Admin: 09/04/16 09:13 Dose: 81 mg Atorvastatin Calcium (Lipitor*) 20 mg PO BEDTIME [facility] Last Admin: 09/03/16 21:47 Dose: 20 mg Clonidine HCl (Catapres Tab*) 0.1 mg PO BEDTIME [facility] Clopidogrel Bisulfate (Plavix Tab*) 75 mg PO DAILY [facility] Last Admin: 09/04/16 09:13 Dose: 75 mg Collagenase (Santyl 250 Mg/Gm Oint*) 1 applic TOPICAL DAILY [facility] Last Admin: 09/04/16 09:14 Dose: 1 applic Dextrose (D50w Syringe 50 Ml*) 12.5 gm IV PUSH .FOR FS < 60 - SS PRN PRN Reason: FS < 60 Heparin Sodium (Porcine) (Heparin Vial(*)) 5,000 units SUBCUT Q8HR [facility] Last Admin: 09/04/16 12:43 Dose: 5,000 units Ceftriaxone Sodium 2 gm/ (Sodium Chloride) 100 mls @ 200 mls/hr IVPB Q24H [facility] Last Admin: 09/03/16 17:18 Dose: 200 mls/hr Insulin Human Lispro (Humalog*) 0 units SUBCUT AC [facility] PRN Reason: Protocol Last Admin: 09/04/16 12:42 Dose: 3 units Metoprolol Tartrate (Lopressor Tab*) 100 mg PO BID [facility] Last Admin: 09/04/16 09:34 Dose: Not Given Miconazole Nitrate (Miconazole Vaginal Cream 2%*) 1 applic VAGINAL BEDTIME [facility] Stop: 09/10/16 21:01 Nystatin (Nystatin Top Powder*) 1 applic TOPICAL TID [facility] Last Admin: 09/04/16 12:43 Dose: 1 applic Oxycodone/Acetaminophen (Percocet 5/325 Tab*) 1 tab PO Q4H PRN PRN Reason: PAIN Last Admin: 09/03/16 14:46 Dose: 1 tab Vital Signs 09/04/16 09/04/16 09/04/16 00:06 04:23 07:51 Temperature 97.5 F 97.7 F Pulse Rate 63 63 Respiratory 16 Rate Blood Pressure 95/60 120/36 (mmHg) O2 Sat by Pulse 93 93 Oximetry Oxygen Devices in Use Now: None Appearance: Morbid obese lady lying in bed in NAD. Eyes: No Scleral Icterus Ears/Nose/Mouth/Throat: Mucous Membranes Moist Neck: Trachea Midline Respiratory: Symmetrical Chest Expansion and Respiratory Effort, Clear to Auscultation Cardiovascular: RRR - Normal S1 and S2 Abdominal: NL Sounds; No Tenderness; No Distention - obese Neurological: Alert and Oriented x 3, NL Muscle Strength and Tone Lines/Tubes/Other Access: Clean, Dry and Intact Peripheral IV Nutrition: Taking PO's Result Diagrams: 09/04/16 05:08 09/04/16 05:08 Assess/Plan/Problems-Billing Assessment: Mrs. Mantilla is a 56yo F with PMH of morbid obesity with BMI 59, type 2 diabetes, PVD, HTN, CKD stage 4, COPD, left hallux wound with osteomyelitis, who presented to ED with c/o left hip pain and fall, found to have rhabdomyolisis. - Patient Problems (1) Sepsis Comment: - Patient met sepsis criteria with leukocytosis and tachycardia. - Source is likely her toe osteomyelitis. - Cultures show no growth so far. (2) Left hip pain Comment: - Patient describes similar episodes of hip pain in the past, but not as severe as this one. She's usually able to ambulate and this time pain was severe and she fell. - Denies back or buttock pain, and pain does not radiate to LLE. Her prior episodes are suggestive of radiculopathy, but this one seems to be different. - CT abdome/pelvis/lumbar spine did not show signs of hematoma. - Bilateral inguinal areas shows no palpable hematoma. - CT LLE did not show signs of infection. - She states warm packs really helped her pain. - Continue PT. (3) Diabetic toe ulcer Comment: - Patient was admitted end of July with infected left hallux ulcer. - MRA (limited exam) of the LLE at that time showed proximal L SFA occlusion with distal reconstitution of flow, little arterial run off signal in distal B/ L peroneal and posterior tibial arteries. - MRI done at that time showed cellulitis, myositis, and left hallux osteomyeliytis. - D/c on doxycycline. - Surgery input appreciated - toe before had a component of wet gangrene and now it is dry. - ID and Ortho input appreciated - plan for toe amputation followed by 2 more weeks of IV antibiotics. (4) PVD (peripheral vascular disease) Comment: - She underwent baloon angioplasty of Left SFA at multiple levels, using a right common femoral artery access on 08/29/16. - Continue Aspirin, Plavix, and Atorvastatin. (5) Rhabdomyolysis Comment: - CPK is trending down. (6) HTN (hypertension) Comment: - Controlled. - Continue Metoprolol and Clonidine. (7) Diabetes Comment: - Last HbA1c was 6.9%. - Continue Lispro SS. (8) CKD stage 4 due to type 2 diabetes mellitus Comment: - Creatinine is a little higher today - suspect secondary to Vanco, and this was already discontinued. - Continue to monitor. (9) COPD (chronic obstructive pulmonary disease) Comment: - Stable. - Continue prn albuterol. (10) DVT prophylaxis Comment: - SQ heparin. (11) Full code status Status and Disposition: Inpatient.
[2016-09-04] MEDS: oxyCODONE/Acetamin 5/325 MG* TAB PO PRN (15:27)
[2016-09-04] MEDS: Atorvastatin* 20 MG TAB PO SCH (21:23)
[2016-09-04] MEDS: cloNIDine TAB* 0.1 MG PO SCH (21:24)
[2016-09-04] MEDS: Amitriptyline TAB* 25 MG PO SCH (21:24)
[2016-09-04] MEDS: Miconazole VAGINAL CREAM 2%* 45 GM VAGINAL SCH (21:24)
[2016-09-05] MEDS: Heparin VIAL(*) 5000 UNITS/ML VIAL (FIVE THOUSAND) SUBCUT SCH ×2 (06:03→12:25)
[2016-09-05] MEDS: Insulin LISPRO* 1 UNITS UNIT SUBCUT SCH ×3 (08:23→17:41)
[2016-09-05] MEDS ORDERED: Vancomycin Trough Check NOTE FOLLOW UP ONE (09:00)
[2016-09-05] MEDS: Aspirin EC Low Dose* 81 MG TAB.EC PO SCH (09:23)
[2016-09-05] MEDS: Metoprolol Tartrate TAB* 100 MG TAB PO SCH ×2 (09:23→20:27)
[2016-09-05] MEDS: Clopidogrel TAB* 75 MG PO SCH (09:23)
[2016-09-05] MEDS: Nystatin TOP POWDER* 15 GM BTL TOPICAL SCH ×4 (09:26→21:26)
--- NOTE | 2016-09-05 10:07 | PN ---
Progress Note - Progress Note Date of Service: 09/05/16 Note: I spoke with Dr. Patterson this morning. Dr. Boswell has evaluated the patient after having contact with Dr. Zelaya and has placed her on the OR schedule for amputation of the left great toe 09/06/16.
[2016-09-05 11:29] LABS: Vancomycin Trough 17.3 mcg/mL
[2016-09-05 11:34] LABS: BUN/Creatinine Ratio 33.5 (8-20); Calcium 8.1 mg/dL (8.6-10.3); EGFR African American 17.9 (>60); EGFR Non-African American 13.9 (>60); Potassium 5.6 mmol/L (3.5-5.0)
[2016-09-05] MEDS ORDERED: Sodium Polystyrene ORAL.SOL* 15 GM/60 ML BTL PO ONE (11:44)
[2016-09-05] MEDS: Acetaminophen TAB* 325 MG PO PRN (11:47)
[2016-09-05] MEDS: Collagenase 250 MG/GM OINT* 30 GM TOPICAL SCH (12:11)
[2016-09-05] MEDS: Sodium Citrate/Citric Acid* 15 ML UDC PO SCH ×2 (12:25→20:30)
[2016-09-05] MEDS ORDERED: Heparin VIAL(*) 5000 UNITS/ML VIAL (FIVE THOUSAND) SUBCUT SCH (12:40)
[2016-09-05] MEDS ORDERED: Buffered Lidocaine 0.9% SYRIN* 5 ML/SYR SYRINGE INTRADERM ONE (12:51)
[2016-09-05] MEDS ORDERED: NS 0.9% 1000 ML* 1,000 ML IV SCH (13:00)
--- NOTE | 2016-09-05 14:49 | PN ---
Progress Note - Progress Note Date of Service: 09/05/16 SOAP: Subjective: She has some mild pain in left great toe but otherwise feels well Objective: Temp Pulse Resp BP Pulse Ox 98.5 F 59 18 114/52 100 09/05/16 07:41 09/05/16 11:35 09/05/16 11:35 09/05/16 11:35 09/05/16 11:35 PEX: Left great toe with large area of dry gangrene and redness over medial area -- some redness on the proximal foot. No abscess or purulence Assessment: Non-healing ulcer with probable osteomyelitis of the left great toe. Plan: I discussed with Dr. Zelaya and Dr. Joiner-consensus is that the left great toe would be best serve by amputation in the face of the osteo and the strong possibility that this will not respond to IV antibiotics. Dr. Zelaya will be away and thus I will proceed with amputation tomorrow. Also this was discussed with Dr. Patterson. I discussed this with Jose Rafael and she understands and agrees to proceed. The procedure and the risks of, but not limited to, of bleeding, infection, non- healing, discomfort, and the possibility that this amputation level may not heal and may require a more proximal amputation was all discussed. In addition she is on both Plavix and aspirin for her recent angioplasty and this will NOT be stopped for the procedure so as not to compromise the recent the vascular procedure which has had a good outcome. Her subq heparin will be stopped.
--- NOTE | 2016-09-05 16:05 | PN ---
Subjective Date of Service: 09/05/16 Interval History: HOSPITALIST PROGRESS NOTE Patient seen and examined at bedside. She feels better today. Left hip pain is less intense, she is able to transfer, but still has difficulty ambulating. Mild pain to left hallux. Family History: Unchanged from Admission Social History: Unchanged from Admission Past Medical History: Unchanged from Admission Objective Active Medications: Acetaminophen (Tylenol Tab*) 650 mg PO Q4H PRN PRN Reason: FEVER/PAIN Last Admin: 09/05/16 11:47 Dose: 650 mg Albuterol (Ventolin Hfa Inhaler*) 1 puff INH Q4H PRN PRN Reason: SOB/WHEEZING Amitriptyline HCl (Elavil Tab*) 25 mg PO BEDTIME [facility] Last Admin: 09/04/16 21:24 Dose: 25 mg Aspirin (Aspirin Ec Low Dose*) 81 mg PO DAILY [facility] Last Admin: 09/05/16 09:23 Dose: 81 mg Atorvastatin Calcium (Lipitor*) 20 mg PO BEDTIME [facility] Last Admin: 09/04/16 21:23 Dose: 20 mg Citric Acid/Sodium Citrate (Bicitra*) 15 ml PO TID [facility] Last Admin: 09/05/16 12:25 Dose: 15 ml Clonidine HCl (Catapres Tab*) 0.1 mg PO BEDTIME [facility] Last Admin: 09/04/16 21:24 Dose: 0.1 mg Clopidogrel Bisulfate (Plavix Tab*) 75 mg PO DAILY [facility] Last Admin: 09/05/16 09:23 Dose: 75 mg Collagenase (Santyl 250 Mg/Gm Oint*) 1 applic TOPICAL DAILY [facility] Last Admin: 09/05/16 12:11 Dose: 1 applic Dextrose (D50w Syringe 50 Ml*) 12.5 gm IV PUSH .FOR FS < 60 - SS PRN PRN Reason: FS < 60 Heparin Sodium (Porcine) (Heparin Vial(*)) 5,000 units SUBCUT Q8HR [facility] Stop: 09/05/16 21:00 Last Admin: 09/05/16 13:22 Dose: Not Given Heparin Sodium (Porcine) (Heparin Flush Picc/Ml/Cvc(*)) 1 ml FLUSH 0600,1800 [facility] PRN Reason: Protocol Ceftriaxone Sodium 2 gm/ (Sodium Chloride) 100 mls @ 200 mls/hr IVPB Q24H [facility] Last Admin: 09/04/16 18:00 Dose: 200 mls/hr Sodium Chloride (Ns 0.9% 1000 Ml*) 1,000 mls @ 100 mls/hr IV PER RATE [facility] Sodium Chloride (Ns 0.9% 1000 Ml*) 1,000 mls @ 25 mls/hr IV PER RATE [facility] Stop: 09/05/16 23:59 Insulin Human Lispro (Humalog*) 0 units SUBCUT AC [facility] PRN Reason: Protocol Last Admin: 09/05/16 12:08 Dose: Not Given Lidocaine/Sodium Bicarbonate (Buffered Lidocaine 0.9% Syrin*) 0.2 ml INTRADERM ONCE ONE Stop: 09/06/16 09:01 Metoprolol Tartrate (Lopressor Tab*) 100 mg PO BID [facility] Last Admin: 09/05/16 09:23 Dose: 100 mg Miconazole Nitrate (Miconazole Vaginal Cream 2%*) 1 applic VAGINAL BEDTIME [facility] Stop: 09/10/16 21:01 Last Admin: 09/04/16 21:24 Dose: 1 applic Nystatin (Nystatin Top Powder*) 1 applic TOPICAL TID [facility] Last Admin: 09/05/16 12:25 Dose: 1 applic Oxycodone/Acetaminophen (Percocet 5/325 Tab*) 1 tab PO Q4H PRN PRN Reason: PAIN Last Admin: 09/04/16 15:27 Dose: 1 tab Vital Signs 09/05/16 09/05/16 09/05/16 08:00 11:35 15:17 Temperature 97.6 F Pulse Rate 59 66 Respiratory 18 18 19 Rate Blood Pressure 114/52 119/36 (mmHg) O2 Sat by Pulse 100 100 Oximetry Oxygen Devices in Use Now: None Appearance: Pleasant lady sitting up in a recliner in NAD. Eyes: No Scleral Icterus Ears/Nose/Mouth/Throat: Mucous Membranes Moist Neck: Trachea Midline Respiratory: Symmetrical Chest Expansion and Respiratory Effort, Clear to Auscultation Cardiovascular: RRR - Normal S1 and S2 Abdominal: NL Sounds; No Tenderness; No Distention - obese Neurological: Alert and Oriented x 3, NL Muscle Strength and Tone Lines/Tubes/Other Access: Clean, Dry and Intact PICC Line - Midline Nutrition: Taking PO's Result Diagrams: 09/04/16 05:08 09/05/16 09:50 Assess/Plan/Problems-Billing Assessment: Mrs. Mantilla is a 56yo F with PMH of morbid obesity with BMI 59, type 2 diabetes, PVD, HTN, CKD stage 4, COPD, left hallux wound with osteomyelitis, who presented to ED with c/o left hip pain and fall, found to have rhabdomyolisis. - Patient Problems (1) Sepsis Comment: - Patient met sepsis criteria with leukocytosis and tachycardia. - Source is likely her toe osteomyelitis. - Cultures show no growth so far. (2) Left hip pain Comment: - Patient describes similar episodes of hip pain in the past, but not as severe as this one. She's usually able to ambulate and this time pain was severe and she fell. - Denies back or buttock pain, and pain does not radiate to LLE. Her prior episodes are suggestive of radiculopathy, but this one seems to be different. - CT abdome/pelvis/lumbar spine did not show signs of hematoma. - Bilateral inguinal areas shows no palpable hematoma. - CT LLE did not show signs of infection. - Suspect pain is musculoskeletal in nature. - She states warm packs really helped her pain. - Continue PT. (3) Diabetic toe ulcer Comment: - Patient was admitted end of July with infected left hallux ulcer. - MRA (limited exam) of the LLE at that time showed proximal L SFA occlusion with distal reconstitution of flow, little arterial run off signal in distal B/ L peroneal and posterior tibial arteries. - MRI done at that time showed cellulitis, myositis, and left hallux osteomyeliytis. - D/c on doxycycline. - Surgery input appreciated - toe before had a component of wet gangrene and now it is dry. - ID and Ortho input appreciated - plan for toe amputation on 09/06 followed by 2 more weeks of IV antibiotics. (4) PVD (peripheral vascular disease) Comment: - She underwent baloon angioplasty of Left SFA at multiple levels, using a right common femoral artery access on 08/29/16. - Continue Aspirin, Plavix, and Atorvastatin. (5) Rhabdomyolysis Comment: - CPK is trending down. (6) HTN (hypertension) Comment: - Controlled. - Continue Metoprolol and Clonidine. (7) Diabetes Comment: - Last HbA1c was 6.9%. - Continue Lispro SS. (8) CKD stage 4 due to type 2 diabetes mellitus Comment: - Creatinine is a little higher today - suspect secondary to Vanco, and this was already discontinued. - Continue to monitor. (9) COPD (chronic obstructive pulmonary disease) Comment: - Stable. - Continue prn albuterol. (10) Hyperkalemia Comment: - Secondary to CKD. - Kayexalate today. - Educated about low potassium diet. (11) Metabolic acidosis Comment: - Secondary to CKD. - Buffer with Bicitra. (12) DVT prophylaxis Comment: - SQ heparin. (13) Full code status Status and Disposition: Inpatient.
[2016-09-05] MEDS: Atorvastatin* 20 MG TAB PO SCH (20:26)
[2016-09-05] MEDS: cloNIDine TAB* 0.1 MG PO SCH (20:27)
[2016-09-05] MEDS: Amitriptyline TAB* 25 MG PO SCH (20:27)
[2016-09-05] MEDS: Miconazole VAGINAL CREAM 2%* 45 GM VAGINAL SCH ×2 (20:28→21:25)
[2016-09-06] MEDS: NS 0.9% 1000 ML* 1,000 ML IV SCH ×2 (00:14→14:54)
[2016-09-06 06:54] LABS: BUN/Creatinine Ratio 33.8 (8-20); Calcium 7.7 mg/dL (8.6-10.3); EGFR African American 18.4 (>60); EGFR Non-African American 14.3 (>60); Potassium 4.7 mmol/L (3.5-5.0)
[2016-09-06] MEDS: Clopidogrel TAB* 75 MG PO SCH (07:18)
[2016-09-06] MEDS: Aspirin EC Low Dose* 81 MG TAB.EC PO SCH (07:18)
[2016-09-06] MEDS: Metoprolol Tartrate TAB* 100 MG TAB PO SCH ×2 (07:37→21:12)
[2016-09-06] MEDS ORDERED: Midazolam* 1 MG/ML 2 ML VIAL (2 MG) ONE ×2 (08:35→09:20)
[2016-09-06] MEDS ORDERED: Buffered Lidocaine 0.9% SYRIN* 5 ML/SYR SYRINGE INTRADERM ONE (09:00)
[2016-09-06] MEDS ORDERED: Bupivacaine 0.5% SDV PF* 30 ML VIAL ONE (09:02)
[2016-09-06] MEDS ORDERED: KETAMINE HCL* 50 MG/ML 10 ML VIAL ONE (09:12)
[2016-09-06] MEDS ORDERED: fentaNYL* 50 MCG/ML 2 ML VIAL (100 MCG VIAL) ONE (09:12)
[2016-09-06] MEDS ORDERED: Lidocaine 2% PF* 10 ML AMP ONE (09:12)
[2016-09-06] MEDS ORDERED: Sodium Bicarbonate 8.4% SYR* 10 ML SYRINGE ONE (09:17)
[2016-09-06] MEDS ORDERED: Dexamethasone IV* 4 MG/ML 1 ML (4 MG) ONE (09:33)
[2016-09-06] MEDS ORDERED: Famotidine IV* 10 MG/ML 2 ML (20 mg) ONE (09:33)
[2016-09-06] MEDS ORDERED: diPHENhydraMINE IV* 50 MG/ML 1 ml VIAL (BENADRYL) ONE (09:34)
[2016-09-06] MEDS: Insulin LISPRO* 1 UNITS UNIT SUBCUT SCH ×3 (09:57→18:02)
[2016-09-06] MEDS: Nystatin TOP POWDER* 15 GM BTL TOPICAL SCH ×3 (09:57→21:33)
[2016-09-06] MEDS: Collagenase 250 MG/GM OINT* 30 GM TOPICAL SCH (09:57)
[2016-09-06] MEDS: Sodium Citrate/Citric Acid* 15 ML UDC PO SCH ×3 (09:57→21:13)
[2016-09-06] MEDS ORDERED: Levalbuterol 0.63MG/3ML NEB INH PRN (10:01)
[2016-09-06] MEDS ORDERED: DiMENhydriNATE IV* 50 MG/ML VIAL IV PUSH PRN (10:01)
[2016-09-06] MEDS ORDERED: Ondansetron INJ* 2 MG/ML VIAL IV PRN (10:01)
[2016-09-06] MEDS ORDERED: fentaNYL* 50 MCG/ML 2 ML VIAL (100 MCG VIAL) IV PRN (10:01)
[2016-09-06] MEDS ORDERED: Bacitracin OINTMENT* 1 TUBE ONE (10:15)
--- NOTE | 2016-09-06 10:42 | SURGPN ---
Brief Operative Note - Surgery Procedures: Procedures OPERATIVE REPORT PRE-OP: Gangrene left great toe POST-OP: Same PROCEDURE: Amputation of left great toe SURGEON: MD Elbert ANESTHESIA:Local with [facility] Dr. Abdalla ASST: LORNA Asencio Student IVF: min EBL: min SPECIMEN: Left great toe DRAIN: none WOUND CLASS: 2 COMPLICATIONS: none TO PACU
[2016-09-06] MEDS: oxyCODONE/Acetamin 5/325 MG* TAB PO PRN ×2 (14:53→16:16)
--- NOTE | 2016-09-06 15:55 | PN ---
Subjective Date of Service: 09/06/16 Interval History: HOSPITALIST PROGRESS NOTE Patient seen and examined at bedside. She feels better today. Did not sleep well last night, anxious for today's surgery, but now there is done, she denies any pain. Tolerating diet well, denies N/V. Family History: Unchanged from Admission Social History: Unchanged from Admission Past Medical History: Unchanged from Admission Objective Active Medications: Acetaminophen (Tylenol Tab*) 650 mg PO Q4H PRN PRN Reason: FEVER/PAIN Last Admin: 09/05/16 11:47 Dose: 650 mg Albuterol (Ventolin Hfa Inhaler*) 1 puff INH Q4H PRN PRN Reason: SOB/WHEEZING Amitriptyline HCl (Elavil Tab*) 25 mg PO BEDTIME [facility] Last Admin: 09/05/16 20:27 Dose: 25 mg Aspirin (Aspirin Ec Low Dose*) 81 mg PO DAILY [facility] Last Admin: 09/06/16 07:18 Dose: Not Given Atorvastatin Calcium (Lipitor*) 20 mg PO BEDTIME [facility] Last Admin: 09/05/16 20:26 Dose: 20 mg Citric Acid/Sodium Citrate (Bicitra*) 15 ml PO TID [facility] Last Admin: 09/06/16 13:11 Dose: 15 ml Clonidine HCl (Catapres Tab*) 0.1 mg PO BEDTIME [facility] Last Admin: 09/05/16 20:27 Dose: 0.1 mg Clopidogrel Bisulfate (Plavix Tab*) 75 mg PO DAILY [facility] Last Admin: 09/06/16 07:18 Dose: Not Given Collagenase (Santyl 250 Mg/Gm Oint*) 1 applic TOPICAL DAILY [facility] Last Admin: 09/06/16 09:57 Dose: Not Given Dextrose (D50w Syringe 50 Ml*) 12.5 gm IV PUSH .FOR FS < 60 - SS PRN PRN Reason: FS < 60 Heparin Sodium (Porcine) (Heparin Flush Picc/Ml/Cvc(*)) 1 ml FLUSH 0600,1800 [facility] PRN Reason: Protocol Last Admin: 09/06/16 05:45 Dose: Not Given Ceftriaxone Sodium 2 gm/ (Sodium Chloride) 100 mls @ 200 mls/hr IVPB Q24H [facility] Last Admin: 09/05/16 17:42 Dose: 200 mls/hr Sodium Chloride (Ns 0.9% 1000 Ml*) 1,000 mls @ 100 mls/hr IV PER RATE [facility] Last Admin: 09/06/16 14:54 Dose: 100 mls/hr Insulin Human Lispro (Humalog*) 0 units SUBCUT AC [facility] PRN Reason: Protocol Last Admin: 09/06/16 13:10 Dose: 2 units Levalbuterol HCl (Xopenex 0.63mg/3ml Neb*) 0.63 mg INH ONCE PRN PRN Reason: SOB/WHEEZING Stop: 09/07/16 10:02 Metoprolol Tartrate (Lopressor Tab*) 100 mg PO BID [facility] Last Admin: 09/06/16 07:37 Dose: 100 mg Miconazole Nitrate (Miconazole Vaginal Cream 2%*) 1 applic VAGINAL BEDTIME [facility] Stop: 09/10/16 21:01 Last Admin: 09/05/16 21:25 Dose: 1 applic Nystatin (Nystatin Top Powder*) 1 applic TOPICAL TID [facility] Last Admin: 09/06/16 09:57 Dose: Not Given Oxycodone/Acetaminophen (Percocet 5/325 Tab*) 1 tab PO Q4H PRN PRN Reason: PAIN Last Admin: 09/06/16 14:53 Dose: 1 tab Oxycodone/Acetaminophen (Percocet 5/325 Tab*) 2 tab PO Q4H PRN PRN Reason: PAIN Vital Signs 09/06/16 09/06/16 14:20 14:53 Temperature 98.3 F Pulse Rate 65 Respiratory 18 20 Rate Blood Pressure 96/43 (mmHg) O2 Sat by Pulse 98 Oximetry Oxygen Devices in Use Now: None Appearance: Pleasant morbid onese lady lying in bed in [facility]. Eyes: No Scleral Icterus Ears/Nose/Mouth/Throat: Mucous Membranes Moist Neck: Trachea Midline Respiratory: Symmetrical Chest Expansion and Respiratory Effort, Clear to Auscultation Cardiovascular: RRR - Normal S1 and S2 Abdominal: NL Sounds; No Tenderness; No Distention - obese Extremities: - - CDI to left foot Neurological: Alert and Oriented x 3, NL Muscle Strength and Tone Lines/Tubes/Other Access: Clean, Dry and Intact PICC Line - Midline to LUE Nutrition: Taking PO's Result Diagrams: 09/04/16 05:08 09/06/16 06:16 Assess/Plan/Problems-Billing Assessment: Mrs. Mantilla is a 56yo F with PMH of morbid obesity with BMI 59, type 2 diabetes, PVD, HTN, CKD stage 4, COPD, left hallux wound with osteomyelitis, who presented to ED with c/o left hip pain and fall, found to have rhabdomyolisis. - Patient Problems (1) Sepsis Comment: - Patient met sepsis criteria on admission with leukocytosis and tachycardia. - Source is likely her toe osteomyelitis. - Cultures show no growth so far. (2) Left hip pain Comment: - Patient describes similar episodes of hip pain in the past, but not as severe as this one. She's usually able to ambulate and this time pain was severe and she fell. - Denies back or buttock pain, and pain does not radiate to LLE. Her prior episodes are suggestive of radiculopathy, but this one seems to be different. - CT abdome/pelvis/lumbar spine did not show signs of hematoma. - Bilateral inguinal areas shows no palpable hematoma. - CT LLE did not show signs of infection. - Suspect pain is musculoskeletal in nature - continues to improve. - She states warm packs really helped her pain. - Continue PT. (3) Diabetic toe ulcer Comment: - Patient was admitted end of July with infected left hallux ulcer. - MRA (limited exam) of the LLE at that time showed proximal L SFA occlusion with distal reconstitution of flow, little arterial run off signal in distal B/ L peroneal and posterior tibial arteries. - MRI done at that time showed cellulitis, myositis, and left hallux osteomyeliytis. - S/p left hallux amputation on 09/06/16. - Continue Ceftriaxone for now - will need 2 more weeks of IV abx as per ID recommendation. - Unclear how she'll manage as outpatient as she's NWB LLE and will need IV antibiotics. Recommended SNF placement for rehab, but patient not agreeable at this time. (4) PVD (peripheral vascular disease) Comment: - She underwent baloon angioplasty of Left SFA at multiple levels, using a right common femoral artery access on 08/29/16. - Continue Aspirin, Plavix, and Atorvastatin. (5) Rhabdomyolysis Comment: - CPK is trending down. (6) HTN (hypertension) Comment: - Controlled. - Continue Metoprolol and Clonidine. (7) Diabetes Comment: - Last HbA1c was 6.9%. - Continue Lispro SS. (8) CKD stage 4 due to type 2 diabetes mellitus Comment: - Creatinine is trending down and hyperkalemia is resolved. - Continue to monitor. (9) COPD (chronic obstructive pulmonary disease) Comment: - Stable. - Continue prn albuterol. (10) Hyperkalemia Comment: - Secondary to CKD. - Resolved. (11) Metabolic acidosis Comment: - Secondary to CKD. - Improving with Bicitra. (12) DVT prophylaxis Comment: - SQ heparin. (13) Full code status Status and Disposition: Inpatient.
[2016-09-06] MEDS: cloNIDine TAB* 0.1 MG PO SCH (21:12)
[2016-09-06] MEDS: Amitriptyline TAB* 25 MG PO SCH (21:12)
[2016-09-06] MEDS: Atorvastatin* 20 MG TAB PO SCH (21:12)
[2016-09-06] MEDS: Miconazole VAGINAL CREAM 2%* 45 GM VAGINAL SCH (21:13)
[2016-09-06] MEDS: Heparin VIAL(*) 5000 UNITS/ML VIAL (FIVE THOUSAND) SUBCUT SCH (21:15)
[2016-09-06] MEDS: Docusate CAP* 100 MG PO SCH (21:29)
[2016-09-06] MEDS: Magnesium Hydroxide LIQ* 30 ML UDC PO SCH (21:30)
[2016-09-07] MEDS ORDERED: Magnesium Hydroxide LIQ* 30 ML UDC ONE (05:55)
[2016-09-07] MEDS: Magnesium Hydroxide LIQ* 30 ML UDC PO SCH (06:02)
[2016-09-07] MEDS: Heparin VIAL(*) 5000 UNITS/ML VIAL (FIVE THOUSAND) SUBCUT SCH ×3 (06:03→21:16)
[2016-09-07] MEDS: Collagenase 250 MG/GM OINT* 30 GM TOPICAL SCH (08:29)
[2016-09-07] MEDS: Docusate CAP* 100 MG PO SCH ×2 (08:34→20:42)
[2016-09-07] MEDS: Aspirin EC Low Dose* 81 MG TAB.EC PO SCH (08:34)
[2016-09-07] MEDS: Clopidogrel TAB* 75 MG PO SCH (08:34)
[2016-09-07] MEDS: Sodium Citrate/Citric Acid* 15 ML UDC PO SCH ×3 (08:34→20:42)
[2016-09-07] MEDS: Metoprolol Tartrate TAB* 100 MG TAB PO SCH ×2 (08:34→20:42)
[2016-09-07] MEDS: Insulin LISPRO* 1 UNITS UNIT SUBCUT SCH ×3 (08:35→17:32)
[2016-09-07] MEDS: Nystatin TOP POWDER* 15 GM BTL TOPICAL SCH ×3 (08:36→21:11)
[2016-09-07] MEDS ORDERED: Bisacodyl EC TAB* 5 MG PO PRN (09:49)
[2016-09-07] MEDS ORDERED: Polyethylene Glycol 3350* 17 GM PACKET PO SCH (10:00)
[2016-09-07] MEDS ORDERED: Polyethylene Glycol 3350* 17 GM PACKET PO PRN (10:10)
--- NOTE | 2016-09-07 10:29 | OP ---
CC: Mumtaz Joiner MD; Grzegorz Zelaya MD, orthopedist * DATE OF OPERATION: 09/06/16 - ROOM #416 DATE OF : 62 SURGEON: Colby Boswell MD PLANT CONTROL AIDE: LORNA Asencio student. ANESTHESIOLOGIST: Dr. Abdalla ANESTHESIA: Monitored anesthesia care with ankle and digital block of the left foot and toe. PRE-OP DIAGNOSIS: Gangrene and osteomyelitis of the left great toe. POST-OP DIAGNOSIS: Gangrene and osteomyelitis of the left great toe. OPERATIVE PROCEDURE: Left great toe amputation. WOUND CLASSIFICATION: 3. COMPLICATIONS: None. SPECIMENS: Left great toe. DRAINS: None. BRIEF HISTORY: Ms. Lorna Mantilla is a 56-year-old woman with multiple medical issues including chronic renal insufficiency, diabetes, morbid obesity, obstructive lung disease, and peripheral vascular disease. She has had a long- standing nonhealing ulcer along the medial aspect of her left great toe. Has not responded well to routine wound care. She recently has undergone a left superficial femoral artery angioplasty to improve inflow to the foot. She was recently admitted with redness, leukocytosis, and cellulitis of the foot. A previous MRI had shown findings consistent with osteomyelitis in the distal phalanx to the left great toe. After complete evaluation of her medical condition, the findings on the MRI and physical examination including recurrent infection of the left great toe, decision has been made to proceed with an amputation of the left great toe especially since she has been revascularized, we have a window of opportunity hopefully for healing of this level amputation. All this was discussed with orthopedic consultants, Infectious Disease as well as her hospitalist service and she understands and agrees to proceed. The procedure was discussed with her and the risks but not limited to bleeding, infection, discomfort, risk of anesthesia, possibility of an amputation of the toe will not heal adequately, she may require more proximal amputation in the future, was all explained and her questions were answered. DESCRIPTION OF PROCEDURE: Written informed consent was obtained, left foot was marked with indelible ink and antibiotics have been administered. She was taken to the operating room and placed in the supine position. An ankle block was performed with anesthesia under sterile condition and intravenous sedation was administered. The left foot was prepped and draped in the usual sterile fashion. Time-out verification was completed. Initially, a digital block was also performed along the medial and lateral base of the left great toe using 0.5% Marcaine mixed with 1% lidocaine without epinephrine. A circumferential incision was made about 1 cm up from the base of the left great toe through viable skin to include the area of the gangrenous change on the medial aspect and the tip of the toe and was carried down to the bone. The distal phalanx was excised through the joint and then we proceeded to elevate the more proximal phalanx down to the metatarsophalangeal joint and the proximal toe was removed. The head of the first metatarsal was exposed. I did not remove the cartilage from this area. Appropriate tendons were excised and allowed to retract. Hemostasis was assured. The wound was irrigated. There is no evidence of deeper infection, necrosis, or extension of any infectious process. I was able to close the wound in layers of subcutaneous interrupted 3-0 Polysorb suture. I trimmed more of the skin to perform adequate viable flaps that were under no tension. The skin was then closed with interrupted 3-0 nylon simple sutures. Bacitracin, Xeroform gauze, and a fluff gauze, and Don wrap were then applied. The patient tolerated the procedure well, was taken to the recovery room in stable condition. [id number]/[facility] #: [id number] XIMENA
--- NOTE | 2016-09-07 15:12 | PN ---
Subjective Date of Service: 09/07/16 Interval History: HOSPITALIST PROGRESS NOTE Patient seen and examined at bedside. She offers no complaints at this time, denies foot pain. Tolerating diet well, happy she had a BM yesterday. Family History: Unchanged from Admission Social History: Unchanged from Admission Past Medical History: Unchanged from Admission Objective Active Medications: Acetaminophen (Tylenol Tab*) 650 mg PO Q4H PRN PRN Reason: FEVER/PAIN Last Admin: 09/05/16 11:47 Dose: 650 mg Albuterol (Ventolin Hfa Inhaler*) 1 puff INH Q4H PRN PRN Reason: SOB/WHEEZING Amitriptyline HCl (Elavil Tab*) 25 mg PO BEDTIME [facility] Last Admin: 09/06/16 21:12 Dose: 25 mg Aspirin (Aspirin Ec Low Dose*) 81 mg PO DAILY [facility] Last Admin: 09/07/16 08:34 Dose: 81 mg Atorvastatin Calcium (Lipitor*) 20 mg PO BEDTIME [facility] Last Admin: 09/06/16 21:12 Dose: 20 mg Bisacodyl (Dulcolax Ec Tab*) 10 mg PO DAILY PRN PRN Reason: CONSTIPATION Citric Acid/Sodium Citrate (Bicitra*) 15 ml PO TID [facility] Last Admin: 09/07/16 12:40 Dose: 15 ml Clonidine HCl (Catapres Tab*) 0.1 mg PO BEDTIME [facility] Last Admin: 09/06/16 21:12 Dose: 0.1 mg Clopidogrel Bisulfate (Plavix Tab*) 75 mg PO DAILY [facility] Last Admin: 09/07/16 08:34 Dose: 75 mg Collagenase (Santyl 250 Mg/Gm Oint*) 1 applic TOPICAL DAILY [facility] Last Admin: 09/07/16 08:29 Dose: Not Given Dextrose (D50w Syringe 50 Ml*) 12.5 gm IV PUSH .FOR FS < 60 - SS PRN PRN Reason: FS < 60 Docusate Sodium (Colace Cap*) 200 mg PO BID [facility] Last Admin: 09/07/16 08:34 Dose: Not Given Heparin Sodium (Porcine) (Heparin Flush Picc/Ml/Cvc(*)) 1 ml FLUSH 0600,1800 [facility] PRN Reason: Protocol Last Admin: 09/07/16 06:01 Dose: 1 ml Heparin Sodium (Porcine) (Heparin Vial(*)) 5,000 units SUBCUT Q8HR [facility] Last Admin: 09/07/16 12:38 Dose: 5,000 units Ceftriaxone Sodium 2 gm/ (Sodium Chloride) 100 mls @ 200 mls/hr IVPB Q24H [facility] Last Admin: 09/06/16 18:11 Dose: 200 mls/hr Insulin Human Lispro (Humalog*) 0 units SUBCUT AC [facility] PRN Reason: Protocol Last Admin: 09/07/16 12:38 Dose: 3 units Metoprolol Tartrate (Lopressor Tab*) 100 mg PO BID [facility] Last Admin: 09/07/16 08:34 Dose: 100 mg Miconazole Nitrate (Miconazole Vaginal Cream 2%*) 1 applic VAGINAL BEDTIME [facility] Stop: 09/10/16 21:01 Last Admin: 09/06/16 21:13 Dose: Not Given Nystatin (Nystatin Top Powder*) 1 applic TOPICAL TID [facility] Last Admin: 09/07/16 12:39 Dose: 1 applic Oxycodone/Acetaminophen (Percocet 5/325 Tab*) 1 tab PO Q4H PRN PRN Reason: PAIN Last Admin: 09/06/16 16:16 Dose: 1 tab Oxycodone/Acetaminophen (Percocet 5/325 Tab*) 2 tab PO Q4H PRN PRN Reason: PAIN Polyethylene Glycol/Electrolytes (Miralax*) 17 gm PO DAILY PRN PRN Reason: CONSTIPATION Vital Signs 09/07/16 09/07/16 09/07/16 05:05 07:32 09:02 Temperature 97.3 F 97.4 F Pulse Rate 68 65 Respiratory 16 20 18 Rate Blood Pressure 140/62 143/46 (mmHg) O2 Sat by Pulse 99 95 Oximetry Oxygen Devices in Use Now: None Appearance: Morbid obese lady lying in bed in [facility]. Eyes: No Scleral Icterus Ears/Nose/Mouth/Throat: Mucous Membranes Moist Neck: Trachea Midline Respiratory: Symmetrical Chest Expansion and Respiratory Effort, Clear to Auscultation Cardiovascular: RRR - Normal S1 and S2 Abdominal: NL Sounds; No Tenderness; No Distention - obese Extremities: - - CDI to left foot Neurological: Alert and Oriented x 3, NL Muscle Strength and Tone Lines/Tubes/Other Access: Clean, Dry and Intact PICC Line - Midline Nutrition: Taking PO's Result Diagrams: 09/04/16 05:08 09/06/16 06:16 Assess/Plan/Problems-Billing Assessment: Mrs. Mantilla is a 56yo F with PMH of morbid obesity with BMI 59, type 2 diabetes, PVD, HTN, CKD stage 4, COPD, left hallux wound with osteomyelitis, who presented to ED with c/o left hip pain and fall, found to have rhabdomyolisis. - Patient Problems (1) Sepsis Comment: - Patient met sepsis criteria on admission with leukocytosis and tachycardia. - Source is likely her toe osteomyelitis. - Cultures are negative. (2) Left hip pain Comment: - Patient describes similar episodes of hip pain in the past, but not as severe as this one. She's usually able to ambulate and this time pain was severe and she fell. - Denies back or buttock pain, and pain does not radiate to LLE. Her prior episodes are suggestive of radiculopathy, but this one seems to be different. - CT abdome/pelvis/lumbar spine did not show signs of hematoma. - Bilateral inguinal areas shows no palpable hematoma. - CT LLE did not show signs of infection. - Suspect pain is musculoskeletal in nature - continues to improve. - Continue PT as tolerated. (3) Diabetic toe ulcer Comment: - Patient was admitted end of July with infected left hallux ulcer. - MRA (limited exam) of the LLE at that time showed proximal L SFA occlusion with distal reconstitution of flow, little arterial run off signal in distal B/ L peroneal and posterior tibial arteries. - MRI done at that time showed cellulitis, myositis, and left hallux osteomyeliytis. - S/p left hallux amputation on 09/06/16. - Continue Ceftriaxone for now - will need 2 more weeks of IV abx as per ID recommendation. - Unclear how she'll manage as outpatient as she's NWB LLE and will need IV antibiotics. Recommended SNF placement for rehab, but patient not agreeable at this time. (4) PVD (peripheral vascular disease) Comment: - She underwent baloon angioplasty of Left SFA at multiple levels, using a right common femoral artery access on 08/29/16. - Continue Aspirin, Plavix, and Atorvastatin. (5) HTN (hypertension) Comment: - Controlled. - Continue Metoprolol and Clonidine. (6) Diabetes Comment: - Last HbA1c was 6.9%. - Continue Lispro SS. (7) CKD stage 4 due to type 2 diabetes mellitus Comment: - Creatinine is trending down and hyperkalemia is resolved. - Continue to monitor. (8) COPD (chronic obstructive pulmonary disease) Comment: - Stable. - Continue prn albuterol. (9) Hyperkalemia Comment: - Secondary to CKD. - Resolved. (10) Metabolic acidosis Comment: - Secondary to CKD. - Improving with Bicitra. (11) DVT prophylaxis Comment: - SQ heparin. (12) Full code status Status and Disposition: Inpatient.
[2016-09-07] MEDS: Atorvastatin* 20 MG TAB PO SCH (20:41)
[2016-09-07] MEDS: cloNIDine TAB* 0.1 MG PO SCH (20:42)
[2016-09-07] MEDS: Amitriptyline TAB* 25 MG PO SCH (20:42)
[2016-09-07] MEDS: Miconazole VAGINAL CREAM 2%* 45 GM VAGINAL SCH (21:11)
[2016-09-07] MEDS: Acetaminophen TAB* 325 MG PO PRN (21:16)
[2016-09-08] MEDS: Heparin VIAL(*) 5000 UNITS/ML VIAL (FIVE THOUSAND) SUBCUT SCH ×3 (06:01→21:36)
[2016-09-08] MEDS: Sodium Citrate/Citric Acid* 15 ML UDC PO SCH ×3 (08:40→19:59)
[2016-09-08] MEDS: Docusate CAP* 100 MG PO SCH ×2 (08:40→19:58)
[2016-09-08] MEDS: Acetaminophen TAB* 325 MG PO PRN (08:41)
[2016-09-08] MEDS: Metoprolol Tartrate TAB* 100 MG TAB PO SCH ×2 (08:41→19:58)
[2016-09-08] MEDS: Clopidogrel TAB* 75 MG PO SCH (08:41)
[2016-09-08] MEDS: Aspirin EC Low Dose* 81 MG TAB.EC PO SCH (08:41)
[2016-09-08] MEDS: Insulin LISPRO* 1 UNITS UNIT SUBCUT SCH ×3 (08:42→17:42)
[2016-09-08] MEDS: Nystatin TOP POWDER* 15 GM BTL TOPICAL SCH ×3 (10:06→20:00)
[2016-09-08] MEDS: Collagenase 250 MG/GM OINT* 30 GM TOPICAL SCH (10:06)
--- NOTE | 2016-09-08 11:28 | PN ---
Subjective Date of Service: 09/08/16 Interval History: HOSPITALIST PROGRESS NOTE Patient seen and examined at bedside. She offers no complaints today, denies pain. Family History: Unchanged from Admission Social History: Unchanged from Admission Past Medical History: Unchanged from Admission Objective Active Medications: Acetaminophen (Tylenol Tab*) 650 mg PO Q4H PRN PRN Reason: FEVER/PAIN Last Admin: 09/08/16 08:41 Dose: 650 mg Albuterol (Ventolin Hfa Inhaler*) 1 puff INH Q4H PRN PRN Reason: SOB/WHEEZING Amitriptyline HCl (Elavil Tab*) 25 mg PO BEDTIME [facility] Last Admin: 09/07/16 20:42 Dose: 25 mg Aspirin (Aspirin Ec Low Dose*) 81 mg PO DAILY [facility] Last Admin: 09/08/16 08:41 Dose: 81 mg Atorvastatin Calcium (Lipitor*) 20 mg PO BEDTIME [facility] Last Admin: 09/07/16 20:41 Dose: 20 mg Bisacodyl (Dulcolax Ec Tab*) 10 mg PO DAILY PRN PRN Reason: CONSTIPATION Citric Acid/Sodium Citrate (Bicitra*) 15 ml PO TID [facility] Last Admin: 09/08/16 08:40 Dose: 15 ml Clonidine HCl (Catapres Tab*) 0.1 mg PO BEDTIME [facility] Last Admin: 09/07/16 20:42 Dose: 0.1 mg Clopidogrel Bisulfate (Plavix Tab*) 75 mg PO DAILY [facility] Last Admin: 09/08/16 08:41 Dose: 75 mg Collagenase (Santyl 250 Mg/Gm Oint*) 1 applic TOPICAL DAILY [facility] Last Admin: 09/08/16 10:06 Dose: Not Given Dextrose (D50w Syringe 50 Ml*) 12.5 gm IV PUSH .FOR FS < 60 - SS PRN PRN Reason: FS < 60 Docusate Sodium (Colace Cap*) 200 mg PO BID [facility] Last Admin: 09/08/16 08:40 Dose: 200 mg Heparin Sodium (Porcine) (Heparin Flush Picc/Ml/Cvc(*)) 1 ml FLUSH 0600,1800 [facility] PRN Reason: Protocol Last Admin: 09/08/16 06:00 Dose: 1 ml Heparin Sodium (Porcine) (Heparin Vial(*)) 5,000 units SUBCUT Q8HR [facility] Last Admin: 09/08/16 06:01 Dose: 5,000 units Ceftriaxone Sodium 2 gm/ (Sodium Chloride) 100 mls @ 200 mls/hr IVPB Q24H [facility] Last Admin: 09/07/16 17:27 Dose: 200 mls/hr Insulin Human Lispro (Humalog*) 0 units SUBCUT AC [facility] PRN Reason: Protocol Last Admin: 09/08/16 08:42 Dose: 3 units Metoprolol Tartrate (Lopressor Tab*) 100 mg PO BID [facility] Last Admin: 09/08/16 08:41 Dose: 100 mg Miconazole Nitrate (Miconazole Vaginal Cream 2%*) 1 applic VAGINAL BEDTIME [facility] Stop: 09/10/16 21:01 Last Admin: 09/07/16 21:11 Dose: Not Given Nystatin (Nystatin Top Powder*) 1 applic TOPICAL TID [facility] Last Admin: 09/08/16 10:06 Dose: Not Given Oxycodone/Acetaminophen (Percocet 5/325 Tab*) 1 tab PO Q4H PRN PRN Reason: PAIN Last Admin: 09/06/16 16:16 Dose: 1 tab Oxycodone/Acetaminophen (Percocet 5/325 Tab*) 2 tab PO Q4H PRN PRN Reason: PAIN Polyethylene Glycol/Electrolytes (Miralax*) 17 gm PO DAILY PRN PRN Reason: CONSTIPATION Vital Signs 09/08/16 09/08/16 09/08/16 03:30 07:01 08:10 Temperature 97.3 F 97.4 F Pulse Rate 63 59 Respiratory 16 16 Rate Blood Pressure 127/40 140/46 (mmHg) O2 Sat by Pulse 94 93 94 Oximetry Oxygen Devices in Use Now: None Appearance: Morbid obese lady lying in bed in [facility]. Eyes: No Scleral Icterus Ears/Nose/Mouth/Throat: Mucous Membranes Moist Neck: Trachea Midline Respiratory: Symmetrical Chest Expansion and Respiratory Effort, Clear to Auscultation Cardiovascular: RRR - Normal S1 and S2 Abdominal: NL Sounds; No Tenderness; No Distention - obese Extremities: - - CDI to left foot Neurological: Alert and Oriented x 3, NL Muscle Strength and Tone Lines/Tubes/Other Access: Clean, Dry and Intact PICC Line - Midline Nutrition: Taking PO's Result Diagrams: 09/04/16 05:08 09/06/16 06:16 Assess/Plan/Problems-Billing Assessment: Mrs. Mantilla is a 56yo F with PMH of morbid obesity with BMI 59, type 2 diabetes, PVD, HTN, CKD stage 4, COPD, left hallux wound with osteomyelitis, who presented to ED with c/o left hip pain and fall, found to have rhabdomyolisis. - Patient Problems (1) Sepsis Comment: - Patient met sepsis criteria on admission with leukocytosis and tachycardia. - Source is likely her toe osteomyelitis. - Cultures are negative. (2) Left hip pain Comment: - Patient describes similar episodes of hip pain in the past, but not as severe as this one. She's usually able to ambulate and this time pain was severe and she fell. - Denies back or buttock pain, and pain does not radiate to LLE. Her prior episodes are suggestive of radiculopathy, but this one seems to be different. - CT abdome/pelvis/lumbar spine did not show signs of hematoma. - Bilateral inguinal areas shows no palpable hematoma. - CT LLE did not show signs of infection. - Suspect pain is musculoskeletal in nature - continues to improve. - Continue PT as tolerated. (3) Diabetic toe ulcer Comment: - Patient was admitted end of July with infected left hallux ulcer. - MRA (limited exam) of the LLE at that time showed proximal L SFA occlusion with distal reconstitution of flow, little arterial run off signal in distal B/ L peroneal and posterior tibial arteries. - MRI done at that time showed cellulitis, myositis, and left hallux osteomyeliytis. - S/p left hallux amputation on 09/06/16. - Continue Ceftriaxone for now - will need 2 more weeks of IV abx as per ID recommendation. - Unclear how she'll manage as outpatient as she's NWB LLE and will need IV antibiotics. Recommended SNF placement for rehab, but patient not agreeable at this time. (4) PVD (peripheral vascular disease) Comment: - She underwent baloon angioplasty of Left SFA at multiple levels, using a right common femoral artery access on 08/29/16. - Continue Aspirin, Plavix, and Atorvastatin. (5) HTN (hypertension) Comment: - Controlled. - Continue Metoprolol and Clonidine. (6) Diabetes Comment: - Last HbA1c was 6.9%. - Continue Lispro SS. (7) CKD stage 4 due to type 2 diabetes mellitus Comment: - Creatinine is trending down and hyperkalemia is resolved. - Continue to monitor. (8) COPD (chronic obstructive pulmonary disease) Comment: - Stable. - Continue prn albuterol. (9) Hyperkalemia Comment: - Secondary to CKD. - Resolved. (10) Metabolic acidosis Comment: - Secondary to CKD. - Improving with Bicitra. (11) DVT prophylaxis Comment: - SQ heparin. (12) Full code status Status and Disposition: Inpatient. Will d/w Surgery and ID to decide on best d/c plan.
[2016-09-08] MEDS: oxyCODONE/Acetamin 5/325 MG* TAB PO PRN ×2 (13:10→23:07)
[2016-09-08] MEDS: Atorvastatin* 20 MG TAB PO SCH (19:57)
[2016-09-08] MEDS: Amitriptyline TAB* 25 MG PO SCH (19:59)
[2016-09-08] MEDS: cloNIDine TAB* 0.1 MG PO SCH (19:59)
[2016-09-08] MEDS: Miconazole VAGINAL CREAM 2%* 45 GM VAGINAL SCH (20:00)
[2016-09-09] MEDS: oxyCODONE/Acetamin 5/325 MG* TAB PO PRN ×2 (01:34→20:33)
[2016-09-09] MEDS: Heparin VIAL(*) 5000 UNITS/ML VIAL (FIVE THOUSAND) SUBCUT SCH ×3 (05:29→20:33)
[2016-09-09 07:31] LABS: Hematocrit 30 % (35-47); Mean Corpuscular HGB Conc 30 g/dl (31-36); Mean Corpuscular Hemoglobin 30 pg (27-31); Mean Corpuscular Volume 101 fL (80-97); Red Blood Count 2.97 10^6/ul (4.0-5.4); Red Cell Distribution Width 16 % (10.5-15)
[2016-09-09 07:32] LABS: Add Diff/Slide Review? Slide Review Added; Comments Flag Yes
[2016-09-09 07:35] LABS: BUN/Creatinine Ratio 35.7 (8-20); Blood Urea Nitrogen 101 mg/dL (6-24); CO2 Carbon Dioxide 16 mmol/L (22-32); Calcium 8.8 mg/dL (8.6-10.3); Chloride 115 mmol/L (101-111); EGFR African American 22.3 (>60); EGFR Non-African American 17.3 (>60); Glucose 124 mg/dL (70-100); Sodium 140 mmol/L (133-145)
[2016-09-09 07:46] LABS: Anion Gap 9 mmol/L (2-11)
[2016-09-09] MEDS: Insulin LISPRO* 1 UNITS UNIT SUBCUT SCH ×3 (09:23→16:52)
[2016-09-09] MEDS: Sodium Citrate/Citric Acid* 15 ML UDC PO SCH (09:23)
[2016-09-09] MEDS: Metoprolol Tartrate TAB* 100 MG TAB PO SCH ×2 (09:23→20:33)
[2016-09-09] MEDS: Docusate CAP* 100 MG PO SCH ×3 (09:23→20:37)
[2016-09-09] MEDS: Nystatin TOP POWDER* 15 GM BTL TOPICAL SCH ×3 (09:24→20:33)
[2016-09-09] MEDS: Aspirin EC Low Dose* 81 MG TAB.EC PO SCH (09:24)
[2016-09-09] MEDS: Clopidogrel TAB* 75 MG PO SCH (09:24)
[2016-09-09 10:56] LABS: Mean Platelet Volume 9 um3 (7.4-10.4); White Blood Count 13.4 10^3/ul (3.5-10.8)
[2016-09-09] MEDS ORDERED: Sodium Polystyrene ORAL.SOL* 15 GM/60 ML BTL PO ONE (11:15)
--- NOTE | 2016-09-09 11:34 | PN ---
Progress Note - Progress Note Date of Service: 09/09/16 SOAP: Subjective: CC: leukocytosis HPI: 56 year old woman with left great toe chronic wound and osteomyelitis, admitted after being found down. Left thigh pain where she was down, gradually improving. Appetite is good. Tolerated toe amputation well. No fever, rash, or diarrhea. Objective: [] Vital Signs Temp 35.6 C 09/09/16 08:11 Pulse 66 09/09/16 08:11 Resp 18 09/09/16 08:11 BP 145/65 09/09/16 08:11 Pulse Ox 94 09/09/16 08:11 Intake & Output 09/08/16 09/09/16 09/09/16 18:59 06:59 18:59 Intake Total 1535 360 230 Balance 1535 360 230 Intake: Oral 1535 360 230 Other: Estimated Void Large Large Date of Last Bowel 09/07/2016 Movement # Bowel Movements 0 0 # Voids 2 1 Gen:Awake, no distress Neuro: OX3, follows all commands HEENT:PERRL, MMM Neck:supple Abd:Soft non distended MSK: left toe amputation site intact, no erythema Laboratory Results - last 24 hr 09/08/16 09/08/16 09/09/16 11:40 17:19 06:44 WBC 13.4 H RBC 2.97 L Hgb 9.0 L Hct 30 L MCV 101 H MCH 30 MCHC 30 L RDW 16 H Plt Count 244 MPV 9 Neut % (Auto) 56.7 Lymph % (Auto) 25.7 Humphreys % (Auto) 9.5 H Eos % (Auto) 6.7 H Baso % (Auto) 1.4 Absolute Neuts (auto) 7.6 Absolute Lymphs (auto) 3.4 Absolute Monos (auto) 1.3 H Absolute Eos (auto) 0.9 H Absolute Basos (auto) 0.2 Absolute Nucleated RBC 0.21 Nucleated RBC % 1.6 Sodium Potassium Chloride Carbon Dioxide Anion Gap BUN Creatinine Est GFR ( Amer) Est GFR (Non-Af Amer) BUN/Creatinine Ratio Glucose POC Glucose (mg/dL) 128 H 189 H Calcium 09/09/16 09/09/16 09/09/16 06:44 08:05 08:05 WBC RBC Hgb Hct MCV MCH MCHC RDW Plt Count MPV Neut % (Auto) Lymph % (Auto) Humphreys % (Auto) Eos % (Auto) Baso % (Auto) Absolute Neuts (auto) Absolute Lymphs (auto) Absolute Monos (auto) Absolute Eos (auto) Absolute Basos (auto) Absolute Nucleated RBC Nucleated RBC % Sodium 140 Potassium TNP 5.4 H Chloride 115 H Carbon Dioxide 16 L Anion Gap 9 BUN 101 H Creatinine 2.83 H Est GFR ( Amer) 22.3 Est GFR (Non-Af Amer) 17.3 BUN/Creatinine Ratio 35.7 H Glucose 124 H POC Glucose (mg/dL) 141 H Calcium 8.8 Assessment: 1. Left great toe dry gangrene, cellulitis, and chronic osteomyelitis s/p amputation 2. Leukocytosis, elevated CRP, sepsis due to #1 3. morbid obesity 4. PAD s/p L SFA angioplasty 5. diabetes with neuropathy 6. CKD, stage 4 Plan: 1. continue ceftriaxone 2 gm daily, will plan on 14 more days of treatment with weekly cbc, cmp, crp. Discussed with Dr Moody
[2016-09-09] MEDS: Collagenase 250 MG/GM OINT* 30 GM TOPICAL SCH (12:16)
--- NOTE | 2016-09-09 13:57 | PN ---
Subjective Date of Service: 09/09/16 Interval History: HOSPITALIST PROGRESS NOTE Patient seen and examined at bedside. She feels well today, denies pain. Feels weak from being in bed so long. Family History: Unchanged from Admission Social History: Unchanged from Admission Past Medical History: Unchanged from Admission Objective Active Medications: Acetaminophen (Tylenol Tab*) 650 mg PO Q4H PRN PRN Reason: FEVER/PAIN Last Admin: 09/08/16 08:41 Dose: 650 mg Albuterol (Ventolin Hfa Inhaler*) 1 puff INH Q4H PRN PRN Reason: SOB/WHEEZING Amitriptyline HCl (Elavil Tab*) 25 mg PO BEDTIME [facility] Last Admin: 09/08/16 19:59 Dose: 25 mg Aspirin (Aspirin Ec Low Dose*) 81 mg PO DAILY [facility] Last Admin: 09/09/16 09:24 Dose: 81 mg Atorvastatin Calcium (Lipitor*) 20 mg PO BEDTIME [facility] Last Admin: 09/08/16 19:57 Dose: 20 mg Bisacodyl (Dulcolax Ec Tab*) 10 mg PO DAILY PRN PRN Reason: CONSTIPATION Clonidine HCl (Catapres Tab*) 0.1 mg PO BEDTIME [facility] Last Admin: 09/08/16 19:59 Dose: 0.1 mg Clopidogrel Bisulfate (Plavix Tab*) 75 mg PO DAILY [facility] Last Admin: 09/09/16 09:24 Dose: 75 mg Collagenase (Santyl 250 Mg/Gm Oint*) 1 applic TOPICAL DAILY [facility] Last Admin: 09/09/16 12:16 Dose: Not Given Dextrose (D50w Syringe 50 Ml*) 12.5 gm IV PUSH .FOR FS < 60 - SS PRN PRN Reason: FS < 60 Docusate Sodium (Colace Cap*) 200 mg PO BID [facility] Last Admin: 09/09/16 09:23 Dose: 200 mg Heparin Sodium (Porcine) (Heparin Flush Picc/Ml/Cvc(*)) 1 ml FLUSH 0600,1800 [facility] PRN Reason: Protocol Last Admin: 09/09/16 05:31 Dose: 1 ml Heparin Sodium (Porcine) (Heparin Vial(*)) 5,000 units SUBCUT Q8HR [facility] Last Admin: 09/09/16 12:59 Dose: 5,000 units Ceftriaxone Sodium 2 gm/ (Sodium Chloride) 100 mls @ 200 mls/hr IVPB Q24H [facility] Last Admin: 09/08/16 17:42 Dose: 200 mls/hr Insulin Human Lispro (Humalog*) 0 units SUBCUT AC [facility] PRN Reason: Protocol Last Admin: 09/09/16 12:58 Dose: 2 units Metoprolol Tartrate (Lopressor Tab*) 100 mg PO BID [facility] Last Admin: 09/09/16 09:23 Dose: 100 mg Miconazole Nitrate (Miconazole Vaginal Cream 2%*) 1 applic VAGINAL BEDTIME [facility] Stop: 09/10/16 21:01 Last Admin: 09/08/16 20:00 Dose: Not Given Nystatin (Nystatin Top Powder*) 1 applic TOPICAL TID [facility] Last Admin: 09/09/16 12:59 Dose: 1 applic Oxycodone/Acetaminophen (Percocet 5/325 Tab*) 1 tab PO Q4H PRN PRN Reason: PAIN Last Admin: 09/09/16 01:34 Dose: 1 tab Oxycodone/Acetaminophen (Percocet 5/325 Tab*) 2 tab PO Q4H PRN PRN Reason: PAIN Polyethylene Glycol/Electrolytes (Miralax*) 17 gm PO DAILY PRN PRN Reason: CONSTIPATION Vital Signs 09/09/16 08:11 Temperature 96.1 F Pulse Rate 66 Respiratory 18 Rate Blood Pressure 145/65 (mmHg) O2 Sat by Pulse 94 Oximetry Oxygen Devices in Use Now: None Appearance: Morbid obese middle aged lady lying in bed in [facility]. Eyes: No Scleral Icterus Ears/Nose/Mouth/Throat: Mucous Membranes Moist Neck: Trachea Midline Respiratory: Symmetrical Chest Expansion and Respiratory Effort, Clear to Auscultation Cardiovascular: RRR - Normal S1 and S2 Extremities: - - CDI to left foot Neurological: Alert and Oriented x 3 Lines/Tubes/Other Access: Clean, Dry and Intact PICC Line - Midline LUE Nutrition: Taking PO's Result Diagrams: 09/09/16 06:44 09/09/16 08:05 Assess/Plan/Problems-Billing Assessment: Mrs. Mantilla is a 56yo F with PMH of morbid obesity with BMI 59, type 2 diabetes, PVD, HTN, CKD stage 4, COPD, left hallux wound with osteomyelitis, who presented to ED with c/o left hip pain and fall, found to have rhabdomyolisis. - Patient Problems (1) Sepsis Comment: - Patient met sepsis criteria on admission with leukocytosis and tachycardia. - Source is likely her toe osteomyelitis. - Cultures are negative. (2) Left hip pain Comment: - Patient describes similar episodes of hip pain in the past, but not as severe as this one. She's usually able to ambulate and this time pain was severe and she fell. - Denies back or buttock pain, and pain does not radiate to LLE. Her prior episodes are suggestive of radiculopathy, but this one seems to be different. - CT abdome/pelvis/lumbar spine did not show signs of hematoma. - Bilateral inguinal areas shows no palpable hematoma. - CT LLE did not show signs of infection. - Suspect pain is musculoskeletal in nature - continues to improve. - Continue PT as tolerated. (3) Diabetic toe ulcer Comment: - Patient was admitted end of July with infected left hallux ulcer. - MRA (limited exam) of the LLE at that time showed proximal L SFA occlusion with distal reconstitution of flow, little arterial run off signal in distal B/ L peroneal and posterior tibial arteries. - MRI done at that time showed cellulitis, myositis, and left hallux osteomyeliytis. - S/p left hallux amputation on 09/06/16. - Continue Ceftriaxone for now - will need 2 more weeks of IV abx as per ID recommendation. - D/w Dr. Boswell - weight bearing status now is heel WB on the left with post op shoe. - To work with PT today - patient states her home is small, but she has 4 stairs to get in. - Dr. Arreguin recommends 2 more weeks of IV Ceftriaxone. CM will arrange outpatient infusion appointments. (4) PVD (peripheral vascular disease) Comment: - She underwent baloon angioplasty of Left SFA at multiple levels, using a right common femoral artery access on 08/29/16. - Continue Aspirin, Plavix, and Atorvastatin. (5) HTN (hypertension) Comment: - Controlled. - Continue Metoprolol and Clonidine. (6) Diabetes Comment: - Last HbA1c was 6.9%. - Continue Lispro SS. (7) CKD stage 4 due to type 2 diabetes mellitus Comment: - Creatinine is trending down and hyperkalemia is resolved. - Continue to monitor. (8) COPD (chronic obstructive pulmonary disease) Comment: - Stable. - Continue prn albuterol. (9) DVT prophylaxis Comment: - SQ heparin. (10) Full code status Status and Disposition: Inpatient. Anticipate d/c in AM if able to ambulate safely and outpatient antibiotic infusion set up.
[2016-09-09] MEDS: Acetaminophen TAB* 325 MG PO PRN (14:03)
[2016-09-09] MEDS: Atorvastatin* 20 MG TAB PO SCH (20:32)
[2016-09-09] MEDS: cloNIDine TAB* 0.1 MG PO SCH (20:32)
[2016-09-09] MEDS: Calcium Carbonate TAB* 1250 MG (CALCIUM 500 MG) PO SCH (20:32)
[2016-09-09] MEDS: Amitriptyline TAB* 25 MG PO SCH (20:32)
[2016-09-09] MEDS: Miconazole VAGINAL CREAM 2%* 45 GM VAGINAL SCH (20:33)
--- NOTE | 2016-09-09 21:38 | PN ---
Progress Note - Progress Note Date of Service: 09/09/16 SOAP: Subjective: Patient seen at 1630 today She is without complaint today-she took a few steps wearing her post-op shoe She does not have any pain Objective: Temp Pulse Resp BP Pulse Ox 97.4 F 66 16 133/42 94 09/09/16 19:19 09/09/16 19:19 09/09/16 20:33 09/09/16 19:19 09/09/16 19:19 PEX: Left foot and ankle with some mild edema There is some redness around the great toe amputation site and the suture line is clean and dry. No odor, no drainage. WBC 09/02/16 09/03/16 09/04/16 09:03 05:11 05:08 WBC 17.3 10^3/ul H 10^3/ul 14.1 10^3/ul H 10^3/ul 9.6 10^3/ul 10^3/ul (3.5-10.8) (3.5-10.8) (3.5-10.8) 09/09/16 06:44 WBC 13.4 10^3/ul H 10^3/ul (3.5-10.8) Assessment: POD # 3 s/p left great toe amputation for gangrene and osteomyelitis Leukocytosis Plan: Continue IV antibiotics Follow wound/incision-if redness or leukocytosis worsens, may need to remove sutures and rule out infection. Continue physical therapy ? Placement
[2016-09-10] MEDS: Heparin VIAL(*) 5000 UNITS/ML VIAL (FIVE THOUSAND) SUBCUT SCH ×3 (05:14→21:37)
[2016-09-10] MEDS: oxyCODONE/Acetamin 5/325 MG* TAB PO PRN (06:17)
[2016-09-10 06:18] LABS: BUN/Creatinine Ratio 36.3 (8-20); Calcium 8.6 mg/dL (8.6-10.3); EGFR African American 26.3 (>60); EGFR Non-African American 20.5 (>60); Potassium 5.2 mmol/L (3.5-5.0)
[2016-09-10] MEDS: Calcium Carbonate TAB* 1250 MG (CALCIUM 500 MG) PO SCH ×3 (09:00→20:24)
[2016-09-10] MEDS: Insulin LISPRO* 1 UNITS UNIT SUBCUT SCH ×4 (09:00→17:05)
[2016-09-10] MEDS: Clopidogrel TAB* 75 MG PO SCH (09:00)
[2016-09-10] MEDS: Metoprolol Tartrate TAB* 100 MG TAB PO SCH ×2 (09:01→20:23)
[2016-09-10] MEDS: Aspirin EC Low Dose* 81 MG TAB.EC PO SCH (09:01)
[2016-09-10] MEDS: Docusate CAP* 100 MG PO SCH ×2 (09:01→20:23)
[2016-09-10] MEDS: Collagenase 250 MG/GM OINT* 30 GM TOPICAL SCH (09:01)
[2016-09-10] MEDS: Nystatin TOP POWDER* 15 GM BTL TOPICAL SCH ×3 (09:02→21:40)
--- NOTE | 2016-09-10 13:20 | PN ---
Subjective Date of Service: 09/10/16 Interval History: HOSPITALIST PROGRESS NOTE Patient seen and examined at bedside. She offers no new complaints. Left hip is still present with exertion, but not as intense as before. Ambulated 5 ft with PT today. Family History: Unchanged from Admission Social History: Unchanged from Admission Past Medical History: Unchanged from Admission Objective Active Medications: Acetaminophen (Tylenol Tab*) 650 mg PO Q4H PRN PRN Reason: FEVER/PAIN Last Admin: 09/09/16 14:03 Dose: 650 mg Albuterol (Ventolin Hfa Inhaler*) 1 puff INH Q4H PRN PRN Reason: SOB/WHEEZING Amitriptyline HCl (Elavil Tab*) 25 mg PO BEDTIME [facility] Last Admin: 09/09/16 20:32 Dose: 25 mg Aspirin (Aspirin Ec Low Dose*) 81 mg PO DAILY [facility] Last Admin: 09/10/16 09:01 Dose: 81 mg Atorvastatin Calcium (Lipitor*) 20 mg PO BEDTIME [facility] Last Admin: 09/09/16 20:32 Dose: 20 mg Bisacodyl (Dulcolax Ec Tab*) 10 mg PO DAILY PRN PRN Reason: CONSTIPATION Calcium Carbonate (Calcium Carbonate Tab*) 1,250 mg PO TID [facility] Last Admin: 09/10/16 12:45 Dose: 1,250 mg Clonidine HCl (Catapres Tab*) 0.1 mg PO BEDTIME [facility] Last Admin: 09/09/16 20:32 Dose: 0.1 mg Clopidogrel Bisulfate (Plavix Tab*) 75 mg PO DAILY [facility] Last Admin: 09/10/16 09:00 Dose: 75 mg Collagenase (Santyl 250 Mg/Gm Oint*) 1 applic TOPICAL DAILY [facility] Last Admin: 09/10/16 09:01 Dose: Not Given Dextrose (D50w Syringe 50 Ml*) 12.5 gm IV PUSH .FOR FS < 60 - SS PRN PRN Reason: FS < 60 Docusate Sodium (Colace Cap*) 200 mg PO BID [facility] Last Admin: 09/10/16 09:01 Dose: 200 mg Heparin Sodium (Porcine) (Heparin Flush Picc/Ml/Cvc(*)) 1 ml FLUSH 0600,1800 [facility] PRN Reason: Protocol Last Admin: 09/10/16 05:14 Dose: 1 ml Heparin Sodium (Porcine) (Heparin Vial(*)) 5,000 units SUBCUT Q8HR [facility] Last Admin: 09/10/16 12:45 Dose: 5,000 units Ceftriaxone Sodium 2 gm/ (Sodium Chloride) 100 mls @ 200 mls/hr IVPB Q24H [facility] Last Admin: 09/09/16 18:28 Dose: 200 mls/hr Insulin Human Lispro (Humalog*) 0 units SUBCUT AC [facility] PRN Reason: Protocol Last Admin: 09/10/16 12:45 Dose: 3 units Metoprolol Tartrate (Lopressor Tab*) 100 mg PO BID [facility] Last Admin: 09/10/16 09:01 Dose: 100 mg Miconazole Nitrate (Miconazole Vaginal Cream 2%*) 1 applic VAGINAL BEDTIME [facility] Stop: 09/10/16 21:01 Last Admin: 09/09/16 20:33 Dose: Not Given Nystatin (Nystatin Top Powder*) 1 applic TOPICAL TID [facility] Last Admin: 09/10/16 12:46 Dose: 1 applic Oxycodone/Acetaminophen (Percocet 5/325 Tab*) 1 tab PO Q4H PRN PRN Reason: PAIN Last Admin: 09/09/16 20:33 Dose: 1 tab Oxycodone/Acetaminophen (Percocet 5/325 Tab*) 2 tab PO Q4H PRN PRN Reason: PAIN Last Admin: 09/10/16 06:17 Dose: 2 tab Polyethylene Glycol/Electrolytes (Miralax*) 17 gm PO DAILY PRN PRN Reason: CONSTIPATION Vital Signs 09/09/16 09/10/16 09/10/16 23:34 00:00 03:49 Temperature 97.4 F 97.5 F Pulse Rate 64 59 Respiratory 15 16 Rate Blood Pressure 124/45 125/38 (mmHg) O2 Sat by Pulse 94 94 94 Oximetry Oxygen Devices in Use Now: None Appearance: Middle aged lady lying in bed in [facility]. Eyes: No Scleral Icterus Ears/Nose/Mouth/Throat: Mucous Membranes Moist Neck: Trachea Midline Respiratory: Symmetrical Chest Expansion and Respiratory Effort, Clear to Auscultation Cardiovascular: RRR - Normal S1 and S2 Extremities: - - Bilateral LE edema, CDI to left foot Neurological: Alert and Oriented x 3, - - KEMP, power 4/5 all 4 ext. Lines/Tubes/Other Access: Clean, Dry and Intact PICC Line - LUE midline Nutrition: Taking PO's Result Diagrams: 09/09/16 06:44 09/10/16 05:26 Assess/Plan/Problems-Billing Assessment: Mrs. Mantilla is a 56yo F with PMH of morbid obesity with BMI 59, type 2 diabetes, PVD, HTN, CKD stage 4, COPD, left hallux wound with osteomyelitis, who presented to ED with c/o left hip pain and fall, found to have rhabdomyolisis. - Patient Problems (1) Sepsis Comment: - Patient met sepsis criteria on admission with leukocytosis and tachycardia. - Source is likely her toe osteomyelitis. - Cultures are negative. (2) Left hip pain Comment: - Patient describes similar episodes of hip pain in the past, but not as severe as this one. She's usually able to ambulate and this time pain was severe and she fell. - Denies back or buttock pain, and pain does not radiate to LLE. Had prior episodes suggestive of radiculopathy. - CT abdome/pelvis/lumbar spine did not show signs of hematoma. - Bilateral inguinal areas shows no palpable hematoma. - CT LLE did not show signs of infection. - Suspect pain is musculoskeletal in nature. - Continue PT as tolerated. (3) Diabetic toe ulcer Comment: - Patient was admitted end of July with infected left hallux ulcer. - MRA (limited exam) of the LLE at that time showed proximal L SFA occlusion with distal reconstitution of flow, little arterial run off signal in distal B/ L peroneal and posterior tibial arteries. - MRI done at that time showed cellulitis, myositis, and left hallux osteomyeliytis. - S/p left hallux amputation on 09/06/16. - Surgery input appreciated - some redness around amputation site, suture line clean and dry - continue to monitor. - Weight bearing status now is heel WB on the left with post op shoe. - Dr. Arreguin recommends 2 more weeks of IV Ceftriaxone. (4) PVD (peripheral vascular disease) Comment: - She underwent baloon angioplasty of Left SFA at multiple levels, using a right common femoral artery access on 08/29/16. - Continue Aspirin, Plavix, and Atorvastatin. (5) HTN (hypertension) Comment: - Controlled. - Continue Metoprolol and Clonidine. (6) Diabetes Comment: - Last HbA1c was 6.9%. - Continue Lispro SS. (7) CKD stage 4 due to type 2 diabetes mellitus Comment: - Creatinine is trending down and hyperkalemia is resolved. - Continue to monitor. (8) COPD (chronic obstructive pulmonary disease) Comment: - Stable. - Continue prn albuterol. (9) DVT prophylaxis Comment: - SQ heparin. (10) Full code status (11) Physical deconditioning Comment: - She did not do well with PT - able to ambulate only 5 ft today. Stairs were not yet tried, but doubt she would be able to do it, as she was already having a hard time getting insider her home prior to admission. - We had a long conversation about her d/c plan. Her plan of going home and returning to hospital daily for infusions is not realistic as her mobility is very limited now and fear for her safety. She's very emotional about going to SNF because her mother passed while she was at [facility]. She's willing to consider [facility] or [facility]. - CM updated. Status and Disposition: Inpatient.
--- NOTE | 2016-09-10 15:34 | PN ---
Progress Note - Progress Note Date of Service: 09/10/16 SOAP: Subjective: Reports doing well, denies any complaints. No fever or chills. Objective: Awake and alert, in NAD VSS, afebrile L foot exam with moderate erythema to the great toe amputation incision. No tenderness, bleeding or discharge. No warmth to touch or induration noted. Pedal pulse is 1+. Sensation intact. Dressing changed. Assessment: Doing well, s/p L great toe amputation. Plan: Continue IV Abx To discuss placement with perinatal social worker.
[2016-09-10] MEDS: Atorvastatin* 20 MG TAB PO SCH (20:23)
[2016-09-10] MEDS: Amitriptyline TAB* 25 MG PO SCH (20:24)
[2016-09-10] MEDS: cloNIDine TAB* 0.1 MG PO SCH (20:24)
[2016-09-10] MEDS: Miconazole VAGINAL CREAM 2%* 45 GM VAGINAL SCH (20:25)
[2016-09-11] MEDS: Heparin VIAL(*) 5000 UNITS/ML VIAL (FIVE THOUSAND) SUBCUT SCH ×3 (05:46→21:26)
[2016-09-11] MEDS: Insulin LISPRO* 1 UNITS UNIT SUBCUT SCH ×3 (09:01→17:44)
[2016-09-11] MEDS: Docusate CAP* 100 MG PO SCH ×2 (09:01→20:39)
[2016-09-11] MEDS: Clopidogrel TAB* 75 MG PO SCH (09:02)
[2016-09-11] MEDS: Aspirin EC Low Dose* 81 MG TAB.EC PO SCH (09:02)
[2016-09-11] MEDS: Calcium Carbonate TAB* 1250 MG (CALCIUM 500 MG) PO SCH ×3 (09:02→20:39)
[2016-09-11] MEDS: Metoprolol Tartrate TAB* 100 MG TAB PO SCH ×2 (09:02→20:39)
[2016-09-11] MEDS: Collagenase 250 MG/GM OINT* 30 GM TOPICAL SCH (09:03)
[2016-09-11] MEDS: Nystatin TOP POWDER* 15 GM BTL TOPICAL SCH ×3 (09:03→20:42)
[2016-09-11] MEDS: oxyCODONE/Acetamin 5/325 MG* TAB PO PRN ×2 (12:36→17:43)
--- NOTE | 2016-09-11 13:29 | PN ---
Subjective Date of Service: 09/11/16 Interval History: HOSPITALIST PROGRESS NOTE Patient seen and examined at bedside. She offers no complaints today. Left hip pain is less intense, was able to move with more ease today. No foot pain. Family History: Unchanged from Admission Social History: Unchanged from Admission Past Medical History: Unchanged from Admission Objective Active Medications: Acetaminophen (Tylenol Tab*) 650 mg PO Q4H PRN PRN Reason: FEVER/PAIN Last Admin: 09/09/16 14:03 Dose: 650 mg Albuterol (Ventolin Hfa Inhaler*) 1 puff INH Q4H PRN PRN Reason: SOB/WHEEZING Amitriptyline HCl (Elavil Tab*) 25 mg PO BEDTIME [facility] Last Admin: 09/10/16 20:24 Dose: 25 mg Aspirin (Aspirin Ec Low Dose*) 81 mg PO DAILY [facility] Last Admin: 09/11/16 09:02 Dose: 81 mg Atorvastatin Calcium (Lipitor*) 20 mg PO BEDTIME [facility] Last Admin: 09/10/16 20:23 Dose: 20 mg Bisacodyl (Dulcolax Ec Tab*) 10 mg PO DAILY PRN PRN Reason: CONSTIPATION Calcium Carbonate (Calcium Carbonate Tab*) 1,250 mg PO TID [facility] Last Admin: 09/11/16 12:36 Dose: 1,250 mg Clonidine HCl (Catapres Tab*) 0.1 mg PO BEDTIME [facility] Last Admin: 09/10/16 20:24 Dose: 0.1 mg Clopidogrel Bisulfate (Plavix Tab*) 75 mg PO DAILY [facility] Last Admin: 09/11/16 09:02 Dose: 75 mg Collagenase (Santyl 250 Mg/Gm Oint*) 1 applic TOPICAL DAILY [facility] Last Admin: 09/11/16 09:03 Dose: Not Given Dextrose (D50w Syringe 50 Ml*) 12.5 gm IV PUSH .FOR FS < 60 - SS PRN PRN Reason: FS < 60 Docusate Sodium (Colace Cap*) 200 mg PO BID [facility] Last Admin: 09/11/16 09:01 Dose: 200 mg Heparin Sodium (Porcine) (Heparin Flush Picc/Ml/Cvc(*)) 1 ml FLUSH 0600,1800 ASHER PRN Reason: Protocol Last Admin: 09/11/16 05:45 Dose: 1 ml Heparin Sodium (Porcine) (Heparin Vial(*)) 5,000 units SUBCUT Q8HR [facility] Last Admin: 09/11/16 12:36 Dose: 5,000 units Ceftriaxone Sodium 2 gm/ (Sodium Chloride) 100 mls @ 200 mls/hr IVPB 1500 [facility] Insulin Human Lispro (Humalog*) 0 units SUBCUT AC [facility] PRN Reason: Protocol Last Admin: 09/11/16 12:35 Dose: 2 units Metoprolol Tartrate (Lopressor Tab*) 100 mg PO BID [facility] Last Admin: 09/11/16 09:02 Dose: 100 mg Nystatin (Nystatin Top Powder*) 1 applic TOPICAL TID [facility] Last Admin: 09/11/16 12:38 Dose: 1 applic Oxycodone/Acetaminophen (Percocet 5/325 Tab*) 1 tab PO Q4H PRN PRN Reason: PAIN Last Admin: 09/11/16 12:36 Dose: 1 tab Oxycodone/Acetaminophen (Percocet 5/325 Tab*) 2 tab PO Q4H PRN PRN Reason: PAIN Last Admin: 09/10/16 06:17 Dose: 2 tab Polyethylene Glycol/Electrolytes (Miralax*) 17 gm PO DAILY PRN PRN Reason: CONSTIPATION Vital Signs 09/11/16 09/11/16 07:42 12:36 Temperature 97.6 F Pulse Rate 64 Respiratory 20 18 Rate Blood Pressure 144/42 (mmHg) O2 Sat by Pulse 91 Oximetry Oxygen Devices in Use Now: None Appearance: Morbid obese lady sitting up in a chair in [facility]. Eyes: No Scleral Icterus Ears/Nose/Mouth/Throat: Mucous Membranes Moist Neck: Trachea Midline Respiratory: Symmetrical Chest Expansion and Respiratory Effort, Clear to Auscultation Cardiovascular: RRR - Normal S1 and S2 Extremities: - - Bilateral LE edema, CDI to left foot Neurological: Alert and Oriented x 3, NL Muscle Strength and Tone Lines/Tubes/Other Access: Clean, Dry and Intact PICC Line - Midline LUE Nutrition: Taking PO's Result Diagrams: 09/09/16 06:44 09/10/16 05:26 Assess/Plan/Problems-Billing Assessment: Mrs. Mantilla is a 56yo F with PMH of morbid obesity with BMI 59, type 2 diabetes, PVD, HTN, CKD stage 4, COPD, left hallux wound with osteomyelitis, who presented to ED with c/o left hip pain and fall, found to have rhabdomyolisis. - Patient Problems (1) Sepsis Comment: - Patient met sepsis criteria on admission with leukocytosis and tachycardia. - Source is likely her toe osteomyelitis. - Cultures are negative. (2) Left hip pain Comment: - Patient describes similar episodes of hip pain in the past, but not as severe as this one. She's usually able to ambulate and this time pain was severe and she fell. - Denies back or buttock pain, and pain does not radiate to LLE. Had prior episodes suggestive of radiculopathy. - CT abdome/pelvis/lumbar spine did not show signs of hematoma. - Bilateral inguinal areas shows no palpable hematoma. - CT LLE did not show signs of infection. - Suspect pain is musculoskeletal in nature - continues to improve. - Continue PT as tolerated. (3) Diabetic toe ulcer Comment: - Patient was admitted end of July with infected left hallux ulcer. - MRA (limited exam) of the LLE at that time showed proximal L SFA occlusion with distal reconstitution of flow, little arterial run off signal in distal B/ L peroneal and posterior tibial arteries. - MRI done at that time showed cellulitis, myositis, and left hallux osteomyeliytis. - S/p left hallux amputation on 09/06/16. - Surgery input appreciated - some redness around amputation site, suture line clean and dry - continue to monitor. - Weight bearing status now is heel WB on the left with post op shoe. - Dr. Arreguin recommends 2 more weeks of IV Ceftriaxone. (4) PVD (peripheral vascular disease) Comment: - She underwent baloon angioplasty of Left SFA at multiple levels, using a right common femoral artery access on 08/29/16. - Continue Aspirin, Plavix, and Atorvastatin. (5) HTN (hypertension) Comment: - Controlled. - Continue Metoprolol and Clonidine. (6) Diabetes Comment: - Last HbA1c was 6.9%. - Continue Lispro SS. (7) CKD stage 4 due to type 2 diabetes mellitus Comment: - Creatinine is trending down and hyperkalemia is resolved. - Continue to monitor. (8) COPD (chronic obstructive pulmonary disease) Comment: - Stable. - Continue prn albuterol. (9) DVT prophylaxis Comment: - SQ heparin. (10) Full code status (11) Physical deconditioning Comment: - She did not do well with PT - able to ambulate only 5 ft today. Stairs were not yet tried, but doubt she would be able to do it, as she was already having a hard time getting insider her home prior to admission. - We had a long conversation about her d/c plan. Her plan of going home and returning to hospital daily for infusions is not realistic as her mobility is very limited now and I fear for her safety. She's very emotional about going to SNF because her mother passed while she was at [facility]. She's willing to consider [place] or [facility]. - CM updated. Status and Disposition: Inpatient. Anticipate d/c to [facility] in AM.
--- NOTE | 2016-09-11 18:16 | PN ---
Progress Note - Progress Note Date of Service: 09/11/16 SOAP: Subjective: Without complaint Objective: Afebrile for 24 hours Temp Pulse Resp BP Pulse Ox 97.6 F 64 18 144/42 91 09/11/16 07:42 09/11/16 07:42 09/11/16 17:43 09/11/16 07:42 09/11/16 07:42 PEX: Suture line on left great toe amputation site intact. There is some edema There is some redness at the dorsum of the foot. Two sutures were removed and some thin serosanguinous fluid was drained--no purulence or odor. The foot was redressed Assessment: POD# 5 s/p left great toe amputation--no abscess noted. I was concerned with some redness on the distal foot but will continue to observe for now. Plan: Continue IV anbx and wound care Placement I will see back in wound center next Friday
[2016-09-11] MEDS: cloNIDine TAB* 0.1 MG PO SCH (20:39)
[2016-09-11] MEDS: Amitriptyline TAB* 25 MG PO SCH (20:39)
[2016-09-11] MEDS: Atorvastatin* 20 MG TAB PO SCH (20:39)
--- NOTE | 2016-09-12 03:08 | DS ---
CC: Dr. Abraham; Dr. Boswell; Dr. Joiner; Dr. Mak * DISCHARGE SUMMARY: DATE OF ADMISSION: 09/02/16 TENTATIVE DATE OF DISCHARGE: 09/12/16 PRIMARY CARE PROVIDER: Dr. Abraham. DISCHARGE DIAGNOSES: 1. Sepsis. 2. Diabetic foot infection/left hallux osteomyelitis, status post amputation on 09/06/16. 3. Left hip pain, likely musculoskeletal. 4. Physical deconditioning. 5. Peripheral vascular disease. 6. Hyperkalemia. 7. Mild rhabdomyolysis. SECONDARY DIAGNOSES: 1. Morbid obesity. 2. Type 2 diabetes. 3. Peripheral vascular disease. 4. Hypertension. 5. Chronic kidney disease, stage 4. 6. Chronic obstructive pulmonary disease. MEDICATION LIST: 1. Aspirin 81 mg p.o. daily. 2. Clopidogrel 75 mg p.o. daily. 3. Atorvastatin 20 mg p.o. at bedtime. 4. Amitriptyline 25 mg p.o. at bedtime. 5. Metoprolol tartrate 100 mg p.o. b.i.d. 6. Ergocalciferol 50,000 units p.o. weekly. 7. Clonidine 0.1 mg p.o. at bedtime. 8. Albuterol HFA 1 puff inhaled q.4 hours p.r.n. shortness of breath. 9. Oxycodone/acetaminophen 1 to 2 tablets p.o. q.4 hours p.r.n. moderate to severe pain. 10. Ceftriaxone 2 g IV daily for 14 days. 11. MiraLAX 17 g p.o. daily p.r.n. constipation. 12. Nystatin topical powder on the breast and inguinal area 3 times a day. 13. Lispro sliding scale as follows: Fingersticks 131 to 150, 2 units; 151 to 200, 3 units; 201 to 250, 6 units; 251 to 300, 9 units; 301 to 350, 12 units; 351 to 400, 15 units; greater than 400, call MD. 14. Colace 200 mg p.o. b.i.d. 15. Calcium carbonate 1250 mg p.o. t.i.d. 16. Bisacodyl 10 mg p.o. daily p.r.n. constipation. 17. Daily dressing changes to left foot incision with bacitracin ointment covered with fluff gauze and wrap. 18. Acetaminophen 650 mg p.o. q.4 hours p.r.n. pain or fever. Maximum acetaminophen dose of 3900 mg including Percocet. 19. Heparin 5000 units subcutaneously q.8 hours until the patient is moving more. HOSPITAL COURSE: Ms. Mantilla is a 56-year-old lady with a past medical history as stated above that presented to the emergency room after a fall at home. The patient was admitted to [facility] from 08/14/16 to 08/19/16. At that time , she had workup that included an MRI that showed a proximal left SFA occlusion and an MRA that showed cellulitis, myositis, and left hallux osteomyelitis. The patient was seen as outpatient by Dr. Hook and on 08/29/16, she underwent balloon angioplasty of the left SFA at multiple levels. The patient developed left hip pain and was unable to get from her bed and actually slipped from her bed to the floor and spent the whole night there until her was able to help her. In the emergency room, she was found to meet sepsis criteria with leukocytosis and tachycardia and the source was felt to be her toe osteomyelitis. She was also found to have elevated CPK of 2082. She was admitted for further evaluation. She states that she has had this hip pain before and is usually happens after staying in the hospital for a while. She used to blame this pain to the hospital bed. She had a hip and pelvis x-ray that showed no radiographic evidence for left hip fracture, only asymmetric soft tissue swelling at the left thigh. CT of the abdomen and pelvis showed potential cholelithiasis or biliary sludge. Normal appendix. Negative for obstructive uropathy, extensive peripheral vascular disease, but no aortoiliac aneurysm. CT of the lumbar spine was a limited study that showed [id number] diffuse lumbar spondylosis. She also had a lower extremity CT that showed no fractures identified. Atherosclerosis is noted of the left lower extremity vessels. In addition, there is significant edema with multiple calcifications in the superficial venous structures. Please note that all of those studies were done without contrast due to the patient's chronic kidney disease, stage 4. She was started on antibiotics empirically and seen in consultation by Infectious Disease (Dr. Joiner.) His recommendation was to continue ceftriaxone and to have Dr. Zelaya evaluate for amputation of her great toe. Dr. Zelaya did see the patient and he felt that at this point, the patient appeared to have some increase of the blood flow to her foot, although obviously the great toe itself was necrotic. He felt that this would expedite healing with MTP disarticulation and he felt that would give plenty of good healing tissue and reasonable margin from the blanquita osteomyelitis of the distal phalanx. Dr. Boswell was also involved on her case and he performed the amputation on 09/06/16. Pathology report showed gangrenous ischemic necrosis with acute on chronic osteomyelitis, ischemic changes and acute inflammatory infiltrate approached within 2 mm of the margin of amputation. The patient's initial plan was to return home and to come to the infusion center once a day to continue her ceftriaxone infusion for 2 more weeks. Initially, after surgery, she was nonweightbearing and unable to get out of bed , but Surgery now states that she can be heel weightbearing on the left with a postop shoe. She was seen by Physical Therapy and she was felt to have rehab needs due to deconditioning. She was able to ambulate with a rolling walker only 5 feet and at this point, she has not been able to do stairs, and she will need to do at least 4 stairs to get inside her home. After discussing her condition, she is accepting of going to a long-term facility for rehab and to continue her antibiotic infusions. She has accepted the bed offer at [facility] and she is medically stable for discharge. Please note that the patient's left hip pain is improving and I believe this is likely musculoskeletal. She has no focal neuro deficits and she is showing generalized weakness now due to deconditioning. The patient has chronic kidney disease stage 4 and had some episodes of hyperkalemia in the hospital. We have talked about her diet and thinks that she should limit. She will need weekly CBC, CMP, and CRP while she is on ceftriaxone, so her renal function and potassium should be monitored and if her hyperkalemia persist and she is not able to change her diet, I believe she will have to be placed on renal diet. The patient also had metabolic acidosis secondary to her renal disease. She was started on Bicitra with good response, but she states she was not able to tolerate it due to taste. I discussed her case with Dr. Mak and he felt that calcium carbonate could be used as a buffer and her bicarb on the day of discharge is up to 25. As outpatient, the patient was taking glipizide and Januvia to control her diabetes. In the hospital, her numbers were much lower and those medications were discontinued. She has been doing well only with lispro sliding scale coverage and some times she does not even require any coverage. As she is discharged to home and returns to her usual home diet, she probably will require those medications again. The patient is medically stable for discharge at this time. She will need followup with Dr. Boswell next week and also with Dr. Joiner in the next 1 to 2 weeks. PHYSICAL EXAMINATION: Vital Signs: Temperature 97.6, heart rate is 64, respiratory rate is 18, oxygen saturation 92% on room air, blood pressure is 144 /42. General: The patient is a morbidly obese lady, sitting up in a chair, in no acute distress. CVS: Normal S1, S2. Regular rate and rhythm. Chest: Breath sounds bilaterally decreased, but no added sounds. Abdomen: Obese, bowel sounds present. Extremities: There is bilateral lower extremity edema and a clean dressing intact to the left foot. Neuro: She is alert, awake and oriented x3. Able to move all 4 extremities. DIET: Consistent carb diet, consider adding a renal diet if the patient's hyperkalemia recurs. ACTIVITIES: Heel weightbearing to the left foot as tolerated with postop shoe. DISPOSITION: To [facility] for rehab. STATUS WHILE IN HOSPITAL: Inpatient. Please keep in mind that this is a summarized version of this patient's prolonged hospital stay. If you need more information, please feel free to call me at or please obtain the full medical records. TIME SPENT: Approximately 50 minutes were spent to complete the discharge. [id number]/CPS #: [id number] MTDD
[2016-09-12] MEDS: Heparin VIAL(*) 5000 UNITS/ML VIAL (FIVE THOUSAND) SUBCUT SCH (05:38)
[2016-09-12 05:52] LABS: BUN/Creatinine Ratio 37.2 (8-20); Calcium 9.7 mg/dL (8.6-10.3); EGFR African American 26.7 (>60); EGFR Non-African American 20.8 (>60); Potassium 5.8 mmol/L (3.5-5.0)
[2016-09-12] MEDS: Insulin LISPRO* 1 UNITS UNIT SUBCUT SCH (08:06)
[2016-09-12] MEDS: Aspirin EC Low Dose* 81 MG TAB.EC PO SCH (08:07)
[2016-09-12] MEDS: Calcium Carbonate TAB* 1250 MG (CALCIUM 500 MG) PO SCH (08:07)
[2016-09-12] MEDS: Docusate CAP* 100 MG PO SCH (08:07)
[2016-09-12] MEDS: Metoprolol Tartrate TAB* 100 MG TAB PO SCH (08:07)
[2016-09-12] MEDS: Clopidogrel TAB* 75 MG PO SCH (08:07)
[2016-09-12] MEDS: Nystatin TOP POWDER* 15 GM BTL TOPICAL SCH (08:08)
--- NOTE | 2016-09-12 10:33 | PN ---
Progress Note - Progress Note Date of Service: 09/12/16 SOAP: Subjective: CC: foot infection HPI: 56 year old woman with left great toe chronic wound and osteomyelitis, admitted after being found down. Had toe amputated. Pain well controlled. Mild redness. Objective: [] Vital Signs Temp 36.3 C 09/12/16 07:58 Pulse 60 09/12/16 07:58 Resp 12 09/12/16 08:00 BP 128/41 09/12/16 07:58 Pulse Ox 91 09/12/16 08:00 Intake & Output 09/11/16 09/12/16 09/12/16 18:59 06:59 18:59 Intake Total 474 0 240 Output Total 700 Balance 474 -700 240 Intake: Oral 474 0 240 Output: Urine 700 Other: Estimated Void Large # Voids 1 1 Gen:Awake, no distress Neuro: OX3, follows all commands HEENT:PERRL, MMM Neck:supple Abd:Soft non distended MSK: left foot wrapped, she declines unwrapping as she is leaving to [facility] Laboratory Results - last 24 hr 09/11/16 09/11/16 09/12/16 11:49 17:30 05:00 Sodium 139 Potassium 5.8 H Chloride 109 Carbon Dioxide 25 Anion Gap 5 BUN 90 H Creatinine 2.42 H Est GFR ( Amer) 26.7 Est GFR (Non-Af Amer) 20.8 BUN/Creatinine Ratio 37.2 H Glucose 145 H POC Glucose (mg/dL) 154 H 165 H Calcium 9.7 09/12/16 07:50 Sodium Potassium Chloride Carbon Dioxide Anion Gap BUN Creatinine Est GFR ( Amer) Est GFR (Non-Af Amer) BUN/Creatinine Ratio Glucose POC Glucose (mg/dL) 178 H Calcium Assessment: 1. Left great toe dry gangrene, cellulitis, and chronic osteomyelitis s/p amputation 2. morbid obesity 3. PAD s/p L SFA angioplasty 4. diabetes with neuropathy 5. CKD, stage 4 Plan: 1. continue ceftriaxone 2 gm daily, will plan on 10 more days of treatment with weekly cbc, cmp, crp. Can broaden coverage at SNF if ongoing concern for foot infection (erythema noted by Dr Boswell, call placed to him)
[2016-09-12 11:37] VITALS: BP 180/63
== END 2016-09-12 12:50 | DRG 710 ==
LOC: ED 08:06 → MED 12:19
PROVIDERS: ADMIT Internal Medicine; ATTEND Internal Medicine
PROC: 0Y6Q0Z3 Detachment at Left 1st Toe, Low, Open Approach (ICD-10-PCS; principal; 2016-09-02)
PROC: 3E0T3CZ (ICD-10-PCS; 2016-09-02)
DX: A41.9 Sepsis, unspecified organism (principal); E11.52 Type 2 diabetes mellitus with diabetic peripheral angiopathy with gangrene; N18.4 Chronic kidney disease, stage 4 (severe); M62.82 Rhabdomyolysis; Z68.43 Body mass index [BMI] 50.0-59.9, adult; E87.5 Hyperkalemia; B37.3 Candidiasis of vulva and vagina; E11.621 Type 2 diabetes mellitus with foot ulcer; M25.552 Pain in left hip; E11.22 Type 2 diabetes mellitus with diabetic chronic kidney disease; I12.9 Hypertensive chronic kidney disease with stage 1 through stage 4 chronic kidney disease, or unspecified chronic kidney disease; J44.9 Chronic obstructive pulmonary disease, unspecified; I73.9 Peripheral vascular disease, unspecified; F17.210 Nicotine dependence, cigarettes, uncomplicated; G47.33 Obstructive sleep apnea (adult) (pediatric); Z79.82 Long term (current) use of aspirin; Z79.02 Long term (current) use of antithrombotics/antiplatelets
CPT/HCPCS: 36415; 72131; 74176; 80048; 80053; 80202; 81003; 81015; 82550; 83605; 84145; 85025; 85610; 85652; 86140; 87040; 87086; 88305; 94760; A9270-GY; J0692; J0696; J1100; J1200; J1644; J2001; J2250; J2270; J3010; J3370

== ENCOUNTER 2016-09-21 11:29 | Emergency (ER) | payer BC, MEDICARE ==
[2016-09-21 11:40] VITALS: BP 154/51
[2016-09-21] MEDS ORDERED: Alteplase (CATHFLO)* 2 MG VIAL IV ONE (12:08)
--- NOTE | 2016-09-22 08:12 | ED ---
ED Suture/Wound Check - HPI Summary HPI Summary: Patient presents to ED from [facility] with occlusion to the left midline catheter in the left arm. Catheter was placed for antibiotics following a partial foot amputation. Nursing staff at [facility] sent her here for catheter replacement. Attempted a flush without success. Spoke with discharge coordinator who states there is no vascular coverage today. 18 gauge placed in the right arm for use until follow up next week. Upon changing the dressing for the midline, RN noticed the catheter was kinked. She attempted a new flush which worked. We decided to leave the right IV in the arm in case the left one stops working. Staff may be able to take this out tomorrow and does not need to return as long as midline continues to work. She denies any complaints or pain. - History Of Current Complaint Chief Complaint: EDGeneral Stated Complaint: IV NEEDS REPLACED Time Seen by Provider: 09/21/16 11:54 Hx Obtained From: Patient Onset/Duration: Sudden Onset Severity: Mild Pain Intensity: 0 Pain Scale Used: 0-10 Numeric - Allergies/Home Medications Allergies/Adverse Reactions: Allergies Allergy/AdvReac Type Severity Reaction Status Date / Time Lisinopril Allergy Dizziness Verified 09/02/16 08:27 PMH/Surg Hx/FS Hx/Imm Hx Previously Healthy: No Endocrine/Hematology History: Reports: Hx Diabetes - For about 23 years. Denies: Hx Anticoagulant Therapy, Hx Blood Disorders, Hx Blood Transfusions, Hx Bone Marrow Disease, Hx Systemic Lupus Erythematosus, Hx Sickle Cell Disease , Hx Thyroid Disease, Hx Anemia, Hx Unexplained Bleeding, Other Endocrine/ Hematological Disorders Cardiovascular History: Reports: Hx Hypertension - x 5-6 years Denies: Hx Aneurysm, Hx Angina, Hx Angioplasty, Hx Auto Implanted Cardiovert Defib, Hx Cardiac Arrest, Hx Cardiomegaly, Hx Congenital Heart Disease, Hx Congestive Heart Failure, Hx Coronary Artery Disease, Hx Deep Vein Thrombosis, Hx Hypercholesterolemia, Hx Hypotension, Hx Myocardial Infarction, Hx Pacemaker/ ICD, Hx Peripheral Vascular Disease, Hx Rheumatic Fever, Hx Syncope, Hx Valvular Heart Disease, Other Cardiovascular Problems/Disorders Respiratory History: Reports: Hx Chronic Obstructive Pulmonary Disease (COPD), Hx Pneumonia - ~ 5x, Hx Sleep Apnea Denies: Hx Asthma, Hx Chronic Bronchitis, Hx Cystic Fibrosis, Hx Lung Cancer , Hx Pleural Effusion, Hx Pulmonary Edema, Hx Pulmonary Embolism, Hx Seasonal Allergies, Other Respiratory Problems/Disorders - copd GI History: Denies: Hx Cirrhosis, Hx Crohn's Disease, Hx Gall Bladder Disease, Hx Gastroesophageal Reflux Disease, Hx Gastrointestinal Bleed, Hx Hiatal Hernia, Hx Irritable Bowel, Hx Jaundice, Hx Ulcer, Hx Urosepsis, Other GI Disorders History: Reports: Hx Chronic Renal Failure - not per patient, per H+P, Hx Renal Disease - DIALYSIS PATIENT for about 2 weeks 3 years ago. She has "weak kidneys." Denies: Hx Acute Renal Failure - current dx, Hx Benign Prostatic Hyperplasia , Hx Dialysis, Hx Kidney Infection, Hx Kidney Stones, Other Problems/ Disorders Musculoskeletal History: Reports: Hx Arthritis, Hx Back Problems, Hx Scoliosis, Other Musculoskeletal History - Degenerative Disc Disease Denies: Hx Bursitis, Hx Congenital Bone Abnormalities, Hx Fibromyalgia, Hx Gout, Hx Orthopedic Injury, Hx Osteoporosis, Hx Tendonitis Sensory History: Reports: Hx Contacts or Glasses Denies: Hx Cataracts, Hx Eye Injury, Hx Eye Prosthesis, Hx Glaucoma, Hx Macular Degeneration, Hx Vision Problem, Hx Deafness, Hx Hearing Aid, Hx Hearing Problem, Other Sensory Impairments Opthamlomology History: Reports: Hx Contacts or Glasses Denies: Hx Cataracts, Hx Eye Injury, Hx Eye Prosthesis, Hx Glaucoma, Hx Macular Degeneration, Hx Vision Problem, Other Sensory Impairments Neurological History: Denies: Hx Dementia, Hx Seizures Psychiatric History: Denies: Hx Anxiety, Hx Depression, Hx Panic Disorder, Hx Schizophrenia, Hx Bipolar Disorder, Hx Substance Abuse - Cancer History Hx Chemotherapy: No - Surgical History Surgery Procedure, Year, and Place: csection ~20 yrs ago at [facility] [place] Hx Anesthesia Reactions: No - Immunization History Hx Pertussis Vaccination: No Immunizations Up to Date: Unable to Obtain/Confirm Infectious Disease History: Denies: Hx Clostridium Difficile, Hx Hepatitis, Hx Human Immunodeficiency Virus (HIV), Hx of Known/Suspected MRSA, Hx Shingles, Hx Tuberculosis, Hx Known/ Suspected VRE, Hx Known/Suspected VRSA, History Other Infectious Disease, Traveled Outside the [place] in Last 30 Days - Family History Known Family History: Positive: Cardiac Disease, Hypertension - Father has "disease." Negative: Renal Disease - Social History Occupation: Unemployed Lives: Assisted Living Alcohol Use: None Hx Substance Use: No Substance Use Type: Reports: None Hx Tobacco Use: Yes Smoking Status (MU): Former Smoker Review of Systems Constitutional: Negative Eyes: Negative Cardiovascular: Negative Gastrointestinal: Negative Genitourinary: Negative Positive: no symptoms reported, see HPI Neurological: Negative Psychological: Normal All Other Systems Reviewed And Are Negative: Yes Physical Exam Triage Information Reviewed: Yes Vital Signs On Initial Exam: Initial Vitals Temp Pulse Resp BP Pulse Ox 97.3 F 56 20 154/51 94 09/21/16 11:37 09/21/16 11:37 09/21/16 11:37 09/21/16 11:37 09/21/16 11:37 Vital Signs Reviewed: Yes Appearance: Positive: Well-Appearing, Well-Nourished Skin: Positive: Warm, Skin Color Reflects Adequate Perfusion Head/Face: Positive: Normal Head/Face Inspection Eyes: Positive: Normal, PEGGY Neck: Positive: Supple, No Lymphadenopathy Respiratory/Lung Sounds: Positive: Clear to Auscultation, Breath Sounds Present Cardiovascular: Positive: Normal, RRR, Pulses are Symmetrical in both Upper and Lower Extremities Musculoskeletal: Positive: Other - wheelchair Neurological: Positive: Sensory/Motor Intact, Alert, Oriented to Person Place, Time Psychiatric: Positive: Normal AVPU Assessment: Alert Diagnostics - Vital Signs Vital Signs Temp Pulse Resp BP Pulse Ox 09/21/16 12:08 97.3 F 56 20 154/51 94 09/21/16 11:37 97.3 F 56 20 154/51 94 - Laboratory Lab Statement: Any lab studies that have been ordered have been reviewed, and results considered in the medical decision making process. Course/Dx - Course Course Of Treatment: Nursing staff at [facility] sent her here for catheter replacement. Attempted a flush without success. Spoke with discharge coordinator who states there is no vascular coverage today. 18 gauge placed in the right arm for use until follow up next week. Upon changing the dressing for the midline, RN noticed the catheter was kinked. She attempted a new flush which worked. We decided to leave the right IV in the arm in case the left one stops working. Staff may be able to take this out tomorrow and does not need to return as long as midline continues to work. She denies any complaints or pain. - Differential Diagnoses Differential Diagnoses: Healing Wound, Joint Infection - Clinical Impression Provider Diagnoses: Occluded PICC line Discharge - Discharge Plan Condition: Stable Disposition: HOME Referrals: [facility], [Primary Care Provider] - Additional Instructions: A discussed, there is no vascular nurse who is able to replace the line Call Friday for appt for Midline replacement. Continue your antibiotics as scheduled
== END 2016-09-21 13:50 | disposition home or self-care (01) ==
LOC: ED 11:29
DX: T82.9XXA Unspecified complication of cardiac and vascular prosthetic device, implant and graft, initial encounter (principal); Z89.439 Acquired absence of unspecified foot; E11.9 Type 2 diabetes mellitus without complications; I10 Essential (primary) hypertension; J44.9 Chronic obstructive pulmonary disease, unspecified; N18.9 Chronic kidney disease, unspecified; Z87.891 Personal history of nicotine dependence
CPT/HCPCS: 99282; J2997

== ENCOUNTER 2016-09-27 17:41 | Inpatient (IN) | payer BC, MEDICARE ==
[2016-09-27 20:02] LABS: Hematocrit 31 % (35-47); Hemoglobin 9.7 g/dl (12.0-16.0); Mean Corpuscular HGB Conc 32 g/dl (31-36); Mean Corpuscular Hemoglobin 32 pg (27-31); Mean Corpuscular Volume 101 fL (80-97); Mean Platelet Volume 8 um3 (7.4-10.4); Red Blood Count 3.07 10^6/ul (4.0-5.4); Red Cell Distribution Width 18 % (10.5-15)
[2016-09-27 20:18] LABS: Albumin 3.4 g/dL (3.2-5.2); BUN/Creatinine Ratio 27.1 (8-20); Calcium 9.4 mg/dL (8.6-10.3); EGFR African American 32.7 (>60); EGFR Non-African American 25.4 (>60); Globulin 3.3 g/dL (2-4); Magnesium 1.3 mg/dL (1.9-2.7); Potassium 4.5 mmol/L (3.5-5.0); Total Bilirubin 0.5 mg/dL (0.2-1.0); Total Protein 6.7 g/dL (6.4-8.9)
[2016-09-27 20:19] LABS: Troponin I 0.03 ng/mL (<0.04)
[2016-09-27] MEDS ORDERED: Magnesium Sulfate 2 GM IV* 2 GM/50 ML BAG IVPB ONE (20:32)
--- NOTE | 2016-09-27 20:35 | ED ---
Rubio Smith Rebecca, scribed for Tia Quarles MD on 09/27/16 at 1816 . Complex/Multi-Sys Presentation - HPI Summary HPI Summary: pt is a 56 y/o F BIBA who presents to ED c/o continued generalized weakness s/p mechanical fall. At 1600 today, the pt fell and was unable to get herself up. The pt presents to the ED because she reports calling [facility], expressing that she would like to return and that she decided to leave and return home prematurely. She was admitted to [facility] from 09/02 - 09/12, receiving IV Abx to treat sepsis, s/p toe amputation on 08/27. She was at [facility] for rehabilitation after being discharged. She chose to return home and feels as though she cannot take care of herself. She called them today and confirmed she may return for continued rehabilitation. Denies SOB or any pain s/p mechanical fall. - History Of Current Complaint Chief Complaint: EDWeakness Time Seen by Provider: 09/27/16 17:59 Hx Obtained From: Patient Onset/Duration: Still Present Severity Currently: None Location: Negative Aggravating Factor(s): Nothing Alleviating Factor(s): Nothing Associated Signs And Symptoms: Positive: Weakness - generalized. Negative: SOB - Allergies/Home Medications Allergies/Adverse Reactions: Allergies Allergy/AdvReac Type Severity Reaction Status Date / Time Lisinopril Allergy Dizziness Verified 09/02/16 08:27 PMH/Surg Hx/FS Hx/Imm Hx Endocrine/Hematology History: Reports: Hx Diabetes - For about 23 years. Denies: Hx Anticoagulant Therapy, Hx Blood Disorders, Hx Blood Transfusions, Hx Bone Marrow Disease, Hx Systemic Lupus Erythematosus, Hx Sickle Cell Disease , Hx Thyroid Disease, Hx Anemia, Hx Unexplained Bleeding, Other Endocrine/ Hematological Disorders Cardiovascular History: Reports: Hx Hypertension - x 5-6 years Denies: Hx Aneurysm, Hx Angina, Hx Angioplasty, Hx Auto Implanted Cardiovert Defib, Hx Cardiac Arrest, Hx Cardiomegaly, Hx Congenital Heart Disease, Hx Congestive Heart Failure, Hx Coronary Artery Disease, Hx Deep Vein Thrombosis, Hx Hypercholesterolemia, Hx Hypotension, Hx Myocardial Infarction, Hx Pacemaker/ ICD, Hx Peripheral Vascular Disease, Hx Rheumatic Fever, Hx Syncope, Hx Valvular Heart Disease, Other Cardiovascular Problems/Disorders Respiratory History: Reports: Hx Chronic Obstructive Pulmonary Disease (COPD), Hx Pneumonia - ~ 5x, Hx Sleep Apnea Denies: Hx Asthma, Hx Chronic Bronchitis, Hx Cystic Fibrosis, Hx Lung Cancer , Hx Pleural Effusion, Hx Pulmonary Edema, Hx Pulmonary Embolism, Hx Seasonal Allergies, Other Respiratory Problems/Disorders - copd GI History: Denies: Hx Cirrhosis, Hx Crohn's Disease, Hx Gall Bladder Disease, Hx Gastroesophageal Reflux Disease, Hx Gastrointestinal Bleed, Hx Hiatal Hernia, Hx Irritable Bowel, Hx Jaundice, Hx Ulcer, Hx Urosepsis, Other GI Disorders History: Reports: Hx Chronic Renal Failure - not per patient, per H+P, Hx Renal Disease - DIALYSIS PATIENT for about 2 weeks 3 years ago. She has "weak kidneys." Denies: Hx Acute Renal Failure - current dx, Hx Benign Prostatic Hyperplasia , Hx Dialysis, Hx Kidney Infection, Hx Kidney Stones, Other Problems/ Disorders Musculoskeletal History: Reports: Hx Arthritis, Hx Back Problems, Hx Scoliosis, Other Musculoskeletal History - Degenerative Disc Disease Denies: Hx Bursitis, Hx Congenital Bone Abnormalities, Hx Fibromyalgia, Hx Gout, Hx Orthopedic Injury, Hx Osteoporosis, Hx Tendonitis Sensory History: Reports: Hx Contacts or Glasses Denies: Hx Cataracts, Hx Eye Injury, Hx Eye Prosthesis, Hx Glaucoma, Hx Macular Degeneration, Hx Vision Problem, Hx Deafness, Hx Hearing Aid, Hx Hearing Problem, Other Sensory Impairments Opthamlomology History: Reports: Hx Contacts or Glasses Denies: Hx Cataracts, Hx Eye Injury, Hx Eye Prosthesis, Hx Glaucoma, Hx Macular Degeneration, Hx Vision Problem, Other Sensory Impairments Neurological History: Denies: Hx Dementia, Hx Seizures Psychiatric History: Denies: Hx Anxiety, Hx Depression, Hx Panic Disorder, Hx Schizophrenia, Hx Bipolar Disorder, Hx Substance Abuse - Cancer History Hx Chemotherapy: No - Surgical History Surgery Procedure, Year, and Place: csection ~20 yrs ago at [facility] Hx Anesthesia Reactions: No Infectious Disease History: Yes Infectious Disease History: Denies: Hx Clostridium Difficile, Hx Hepatitis, Hx Human Immunodeficiency Virus (HIV), Hx of Known/Suspected MRSA, Hx Shingles, Hx Tuberculosis, Hx Known/ Suspected VRE, Hx Known/Suspected VRSA, History Other Infectious Disease, Traveled Outside the [place] in Last 30 Days - Family History Known Family History: Positive: Cardiac Disease, Hypertension - Father has "disease." Negative: Renal Disease - Social History Alcohol Use: None Hx Substance Use: No Substance Use Type: Reports: None Hx Tobacco Use: Yes Smoking Status (MU): Former Smoker Review of Systems Negative: Fever Negative: Shortness Of Breath Positive: Other - Denies any pain Positive: Weakness - Generalized weakness All Other Systems Reviewed And Are Negative: Yes Physical Exam - Summary Physical Exam Summary: General: No pain distress, morbidly obese Skin: Warm, Dry, Erythema throughout her perineum and a little bit of erythema on the legs Eyes: EOMI, PEGGY ENT: Pharynx normal, TMs normal Neck: Supple, nontender Respiratory: CTA, breath sounds present, no rhonchi, no wheezes, no rales Cardiovascular: RRR, no murmur, no rub, no gallop Abdomen: Soft, nontender, Non-distended, no guarding, no rebound Bowel: Present Musculoskeletal: JULIA, bilateral 3+ edema in the lower legs Neuro: Sensory/motor intact, A&Ox3, CN intact 2-12 Psych: Affect/mood appropriate Triage Information Reviewed: Yes Vital Signs On Initial Exam: Initial Vitals Temp Pulse Resp BP Pulse Ox 97.6 F 72 18 188/57 95 09/27/16 18:11 09/27/16 18:11 09/27/16 18:11 09/27/16 18:11 09/27/16 18:11 Vital Signs Reviewed: Yes Diagnostics - Vital Signs Vital Signs Temp Pulse Resp BP Pulse Ox 09/27/16 18:11 97.6 F 72 18 188/57 95 - Laboratory Lab Results: Lab Results 09/27/16 09/27/16 09/27/16 Range/Units 19:55 19:55 19:55 WBC 9.0 (3.5-10.8) 10^3/ul RBC 3.07 L (4.0-5.4) 10^6/ul Hgb 9.7 L (12.0-16.0) g/dl Hct 31 L (35-47) % MCV 101 H (80-97) fL MCH 32 H (27-31) pg MCHC 32 (31-36) g/dl RDW 18 H (10.5-15) % Plt Count 260 (150-450) 10^3/ul MPV 8 (7.4-10.4) um3 Neut % (Auto) 73.3 (38-83) % Lymph % (Auto) 9.6 L (25-47) % [place] % (Auto) 10.1 H (1-9) % Eos % (Auto) 5.8 (0-6) % Baso % (Auto) 1.2 (0-2) % Absolute Neuts (auto) 6.6 (1.5-7.7) 10^3/ul Absolute Lymphs (auto) 0.9 L (1.0-4.8) 10^3/ul Absolute Monos (auto) 0.9 H (0-0.8) 10^3/ul Absolute Eos (auto) 0.5 (0-0.6) 10^3/ul Absolute Basos (auto) 0.1 (0-0.2) 10^3/ul Absolute Nucleated RBC 0.01 10^3/ul Nucleated RBC % 0.1 Sodium 135 (133-145) mmol/L Potassium 4.5 (3.5-5.0) mmol/L Chloride 101 (101-111) mmol/L Carbon Dioxide 30 (22-32) mmol/L Anion Gap 4 (2-11) mmol/L BUN 55 H (6-24) mg/dL Creatinine 2.03 H (0.51-0.95) mg/dL Est GFR ( Amer) 32.7 (>60) Est GFR (Non-Af Amer) 25.4 (>60) BUN/Creatinine Ratio 27.1 H (8-20) Glucose 164 H (70-100) mg/dL Lactic Acid 0.9 (0.5-2.0) mmol/L Calcium 9.4 (8.6-10.3) mg/dL Magnesium 1.3 L (1.9-2.7) mg/dL Total Bilirubin 0.50 (0.2-1.0) mg/dL AST 18 (13-39) U/L ALT 14 (7-52) U/L Alkaline Phosphatase 103 (34-104) U/L Troponin I 0.03 (<0.04) ng/mL Total Protein 6.7 (6.4-8.9) g/dL Albumin 3.4 (3.2-5.2) g/dL Globulin 3.3 (2-4) g/dL Albumin/Globulin Ratio 1.0 (1-3) TSH Pending Result Diagrams: 09/27/16 19:55 09/27/16 19:55 Lab Statement: Any lab studies that have been ordered have been reviewed, and results considered in the medical decision making process. Complex Multi-Symp Course/Dx Assessment/Plan: Elevated BP noted and advised to follow up with PCP. 56 yo female who discharged herself from [facility] only to get home and fall and not be able to get up. Attempts were made by charge nurse in the ED to try and get pt re-admitted to [facility] to no avail. Case discussed with Dr. Tsang and pt will be admitted - Diagnoses Provider Diagnoses: Weakness - Physician Notifications Discussed Care Of Patient With: Ck Tsang Time Discussed With Above Provider: 20:20 Instructed by Provider To: Other - Accepts pt for admisison. Discharge - Discharge Plan Condition: Stable Disposition: ADMITTED TO [facility] The documentation as recorded by the Rubio avalos Rebecca accurately reflects the service I personally performed and the decisions made by me, Tia Quarles MD.
[2016-09-27 20:55] LABS: TSH (Thyroid Stimulating Horm) 5.88 mcIU/mL (0.34-5.60)
[2016-09-27] MEDS ORDERED: Polyethylene Glycol 3350* 17 GM PACKET PO PRN (21:23)
[2016-09-27] MEDS ORDERED: Bisacodyl EC TAB* 5 MG PO PRN (21:23)
[2016-09-27] MEDS ORDERED: Albuterol HFA INHALER* 8 gm MDI INH PRN (21:23)
[2016-09-27] MEDS ORDERED: Dextrose 50% Syringe 50 ML* 25 GM/50 ML SYRINGE IV PUSH PRN (21:30)
[2016-09-27 22:10] LABS: Free T4 0.95 ng/dL (0.61-1.12)
[2016-09-27] MEDS: Cephalexin CAP* 500 MG PO SCH (23:02)
[2016-09-27] MEDS: Heparin VIAL(*) 5000 UNITS/ML VIAL (FIVE THOUSAND) SUBCUT SCH (23:03)
--- NOTE | 2016-09-27 23:28 | HP ---
CC: Providers at [facility] * HISTORY AND PHYSICAL: DATE OF ADMISSION: 09/27/16 ATTENDING PHYSICIAN: Dr. Ck Tsang * (dictation provided by Torri Kauffman NP) CHIEF COMPLAINT: Fall. HISTORY OF PRESENT ILLNESS: Ms. Mantilla is a 56-year-old female, who has a past medical history of morbid obesity and recent admission to our hospital, was discharged on 09/11/16 after having a left hallux osteomyelitis with amputation. Please see the extended discharge summary from Dr. Moody for full details. The patient also has a history of type 2 diabetes, peripheral vascular disease, hypertension, and chronic kidney disease, stage 4 as well as COPD. The patient was discharged from our hospital on 09/12/16 to [facility] for rehabilitation. She decided today that she would be better off at home and signed out from the facility. On returning home, she went to get up from the couch and did not have a good sorting and folding supervisor on her walker and fell. She reports any injury with the fall, but she was unable to get up and returned to the emergency department. She denies any fevers, chills, chest pain, cough, shortness of breath, nausea, vomiting, or abdominal pain. She states she has been feeling in her fine state of health other than feeling weak, which is the reason why she was in rehabilitation at [facility]. In the emergency room, Ms. Mantilla had labs, which showed no leukocytosis. She had a chronic anemia. Her electrolytes were normal. She has chronic kidney disease, stage 4 and her BUN and creatinine are at baseline. PAST MEDICAL HISTORY: 1. Left hallux osteomyelitis with amputation, 09/06/16. 2. Chronic left hip pain. 3. Peripheral vascular disease. 4. Hyperlipidemia. 5. Morbid obesity. 6. Type 2 diabetes, non-insulin dependent. 7. Hypertension. 8. CKD, stage 4. 9. COPD. 10. History of . MEDICATIONS: The patient did not come with a medication list and we will need to verify this tomorrow. I was able to speak with someone from [facility] who verified that she is now on keflex for antibiotic coverage of recent osteomyelitis with amputation. For now, plan to order meds as she was approximately 2 weeks ago on her discharge. She does not know of any significant change to the list. They are: 1. Oxycodone with acetaminophen 1 to 2 tabs p.o. q.4 hours p.r.n. 2. Clonidine 0.1 mg p.o. at bedtime. 3. Polyethylene glycol 17 g p.o. daily p.r.n. 4. Nystatin powder 1 application topically t.i.d. 5. Metoprolol tartrate 100 mg p.o. b.i.d. 6. Lispro insulin as needed. 7. Heparin via flush as needed. 8. Ergocalciferol 50,000 units p.o. weekly. 9. Docusate 200 mg p.o. daily. 10. Clopidogrel 75 mg p.o. daily. 11. Calcium carbonate 1250 mg p.o. t.i.d. 12. Dulcolax EC 10 mg p.o. daily p.r.n. 13. Bacitracin ointment 1 application topically daily. 14. Atorvastatin 20 mg p.o. at bedtime. 15. Aspirin 81 mg p.o. daily. 16. Amitriptyline 25 mg p.o. at bedtime. 17. Albuterol inhaler 1 puff inhaled q.4 hours p.r.n. 18. Tylenol 650 mg p.o. q.4 hours p.r.n. 19. Kelfex 500mg p.o QID. ALLERGIES: To LISINOPRIL. FAMILY HISTORY: The patient reports her mother related to pancreatic cancer. Her father is alive, but has heart trouble. SOCIAL HISTORY: No report of alcohol or drug abuse. The patient is a former smoker, quit 8 years ago. She states her is her healthcare proxy. REVIEW OF SYSTEMS: A 14-point review of systems was completed with Ms. Mantilla and all those not mentioned above were negative. PHYSICAL EXAMINATION GENERAL: Ms. Mantilla is sitting in the bed. She is in no acute distress. VITAL SIGNS: Temperature 97.2, heart rate 61, respiratory rate 16, O2 saturation 100% on 2 L nasal cannula, blood pressure 150/58. LUNGS: Clear to auscultation as able to be auscultated due to her body habitus with no accessory muscle use and good aeration. HEART: S1, S2. No murmur, rub, or gallop and regular. ABDOMEN: Soft, nontender with bowel sounds positive x4. EXTREMITIES: No cyanosis or edema. NEURO: She is alert, she is oriented x3. She moves all extremities equally. There is no facial asymmetry or focal weakness. Extraocular movements are intact. SKIN: Intact. Left foot amputation site is healing well. No erythema or drainage. LABORATORY DATA: Sodium 135, potassium 4.5, chloride 101, serum bicarbonate 30 , BUN 55, creatinine 2.03, glucose 164, lactic acid 0.9. TSH 5.88. ASSESSMENT AND PLAN: Ms. Mantilla is a 56-year-old female with past medical history of morbid obesity and left foot partial amputation on 09/06/16 as well as chronic kidney disease, stage 4 and chronic obstructive pulmonary disease, who presents to the hospital with concern for fall at home and inability to care for self. Our plans are for observation in the hospital for the followin. Fall: The patient reports no injury. I think her fall is related to deconditioning and morbid obesity. The patient will have physical therapy. manager agricultural and discharge planners will be following along with her to secure placement. 2. Type 2 diabetes: It appears from the current list that she is not on any medications. Plan to check blood glucoses q.a.c. and provide lispro sliding scale as needed. 3. Elevated TSH. Plan to check T4. 4. Recent left great toe amputation. Continue keflex. Patient to follow up outpatient with Dr. Joiner and Dr. Boswell. 5. Chronic obstructive pulmonary disease: No evidence of acute exacerbation. The patient will have albuterol p.r.n. as needed. 6. Chronic kidney disease, stage 4: Baseline. 7. Hypertension: Plan to continue clonidine and metoprolol. Her blood pressure is a little elevated in the emergency department. I will see if it normalizes when she settles in upstairs. If not, we can add additional agents as necessary. 8. Hyperlipidemia: Continue atorvastatin. 9. History of peripheral vascular disease: Continue clopidogrel. 10. DVT prophylaxis: With heparin subcu. 11. Disposition: To medical floor. 12. Code status: Full code. TIME SPENT: Approximately 60 minutes was spent on the admission of this patient , more than half time spent with the patient at the bedside reviewing the events leading up to this hospitalization, performing the physical examination, and reviewing my plan of care. TORRI KAUFFMAN NP [id number]/[facility] #: [id number] XIMENA
[2016-09-28] MEDS: Heparin VIAL(*) 5000 UNITS/ML VIAL (FIVE THOUSAND) SUBCUT SCH ×3 (05:33→22:41)
[2016-09-28] MEDS: Aspirin EC Low Dose* 81 MG TAB.EC PO SCH (08:42)
[2016-09-28] MEDS: Clopidogrel TAB* 75 MG PO SCH (08:42)
[2016-09-28] MEDS: Cephalexin CAP* 500 MG PO SCH ×4 (08:42→19:46)
[2016-09-28] MEDS: Calcium Carbonate TAB* 1250 MG (CALCIUM 500 MG) PO SCH ×3 (08:42→19:47)
[2016-09-28] MEDS: Docusate CAP* 100 MG PO SCH ×2 (08:43→19:45)
[2016-09-28] MEDS: Insulin LISPRO* 1 UNITS UNIT SUBCUT SCH ×3 (08:44→17:55)
[2016-09-28] MEDS: Metoprolol Tartrate TAB* 100 MG TAB PO SCH ×2 (08:45→19:46)
[2016-09-28] MEDS: Bacitracin OINTMENT* 1 TUBE TOPICAL SCH (08:47)
[2016-09-28] MEDS ORDERED: Torsemide TAB* 100 MG PO ONE (11:47)
--- NOTE | 2016-09-28 11:52 | PN ---
Subjective Date of Service: 09/28/16 Interval History: Patient seen this morning. No new complaints. Agrees that [facility], feels she needs additional rehab prior to going home. Reports significant weight gain and was hoping to resume home diuretic. Family History: Unchanged from Admission Social History: Unchanged from Admission Past Medical History: Unchanged from Admission Objective Active Medications: Acetaminophen (Tylenol Tab*) 650 mg PO Q4H PRN Albuterol (Ventolin Hfa Inhaler*) 1 puff INH Q4H PRN Amitriptyline HCl (Elavil Tab*) 25 mg PO BEDTIME ASHER Aspirin (Aspirin Ec Low Dose*) 81 mg PO DAILY ASHER Atorvastatin Calcium (Lipitor*) 20 mg PO BEDTIME ASHER Bacitracin (Bacitracin Ointment*) 1 applic TOPICAL DAILY ASHER Bisacodyl (Dulcolax Ec Tab*) 10 mg PO DAILY PRN Calcium Carbonate (Calcium Carbonate Tab*) 1,250 mg PO TID ASHER Cephalexin HCl (Keflex Cap*) 500 mg PO QID ASHER Clonidine HCl (Catapres Tab*) 0.1 mg PO BEDTIME ASHER Clopidogrel Bisulfate (Plavix Tab*) 75 mg PO DAILY ASHER Dextrose (D50w Syringe 50 Ml*) 12.5 gm IV PUSH .FOR FS < 60 - SS PRN Docusate Sodium (Colace Cap*) 200 mg PO BID ASHER Heparin Sodium (Porcine) (Heparin Vial(*)) 5,000 units SUBCUT Q8HR ASHER Insulin Human Lispro (Humalog*) 0 units SUBCUT AC ASHER Metoprolol Tartrate (Lopressor Tab*) 100 mg PO BID ASHER Nystatin (Nystatin Top Powder*) 1 applic TOPICAL TID ASHER Polyethylene Glycol/Electrolytes (Miralax*) 17 gm PO DAILY PRN Vital Signs 09/27/16 09/28/16 09/28/16 22:17 03:52 07:40 Temperature 97.2 F 98.0 F 98.8 F Pulse Rate 66 67 76 Respiratory 18 20 18 Rate Blood Pressure 149/53 146/38 142/41 (mmHg) O2 Sat by Pulse 94 90 89 Oximetry Oxygen Devices in Use Now: None Appearance: Obese, F, sitting in chair in NAD Eyes: No Scleral Icterus Ears/Nose/Mouth/Throat: Mucous Membranes Moist Neck: NL Appearance and Movements; NL JVP Respiratory: Symmetrical Chest Expansion and Respiratory Effort, Clear to Auscultation Cardiovascular: NL Sounds; No Murmurs; No JVD, RRR Abdominal: - - Obese, soft, NTND, BS+ Lymphatic: No Cervical Adenopathy Extremities: - - B/L LE edema Skin: - - L foot with dressing in place Neurological: Alert and Oriented x 3 Result Diagrams: 09/27/16 19:55 09/27/16 19:55 Additional Lab and Data: Lab Results 09/27/16 09/27/16 09/27/16 Range/Units 19:55 19:55 19:55 WBC 9.0 (3.5-10.8) 10^3/ul RBC 3.07 L (4.0-5.4) 10^6/ul Hgb 9.7 L (12.0-16.0) g/dl Hct 31 L (35-47) % MCV 101 H (80-97) fL MCH 32 H (27-31) pg MCHC 32 (31-36) g/dl RDW 18 H (10.5-15) % Plt Count 260 (150-450) 10^3/ul MPV 8 (7.4-10.4) um3 Neut % (Auto) 73.3 (38-83) % Lymph % (Auto) 9.6 L (25-47) % [place] % (Auto) 10.1 H (1-9) % Eos % (Auto) 5.8 (0-6) % Baso % (Auto) 1.2 (0-2) % Absolute Neuts (auto) 6.6 (1.5-7.7) 10^3/ul Absolute Lymphs (auto) 0.9 L (1.0-4.8) 10^3/ul Absolute Monos (auto) 0.9 H (0-0.8) 10^3/ul Absolute Eos (auto) 0.5 (0-0.6) 10^3/ul Absolute Basos (auto) 0.1 (0-0.2) 10^3/ul Absolute Nucleated RBC 0.01 10^3/ul Nucleated RBC % 0.1 Sodium 135 (133-145) mmol/L Potassium 4.5 (3.5-5.0) mmol/L Chloride 101 (101-111) mmol/L Carbon Dioxide 30 (22-32) mmol/L Anion Gap 4 (2-11) mmol/L BUN 55 H (6-24) mg/dL Creatinine 2.03 H (0.51-0.95) mg/dL Est GFR ( Amer) 32.7 (>60) Est GFR (Non-Af Amer) 25.4 (>60) BUN/Creatinine Ratio 27.1 H (8-20) Glucose 164 H (70-100) mg/dL Lactic Acid 0.9 (0.5-2.0) mmol/L Calcium 9.4 (8.6-10.3) mg/dL Magnesium 1.3 L (1.9-2.7) mg/dL Total Bilirubin 0.50 (0.2-1.0) mg/dL AST 18 (13-39) U/L ALT 14 (7-52) U/L Alkaline Phosphatase 103 (34-104) U/L Troponin I 0.03 (<0.04) ng/mL Total Protein 6.7 (6.4-8.9) g/dL Albumin 3.4 (3.2-5.2) g/dL Globulin 3.3 (2-4) g/dL Albumin/Globulin Ratio 1.0 (1-3) TSH Pending Assess/Plan/Problems-Billing Assessment: Mechanical fall in a 56 yo F with hx of recent L great toe amputation, HTN, super-morbid obesity, HLD, DM, CKD, COPD who signed out of [facility] the same day - Patient Problems (1) Fall Current Visit: Yes Comment: Related to incomplete recovery at rehab, leaving AMA too early. Continue PT, [facility] (2) Diabetes Current Visit: No Comment: Last HbA1c was 6.9%. Continue Lispro SS. (3) HTN (hypertension) Current Visit: No Comment: Continue Metoprolol and Clonidine. 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 Resume Torsemide at prior dose. (5) Amputated great toe of left foot Current Visit: Yes Comment: Continue oral ABx. (6) PVD (peripheral vascular disease) Current Visit: No Comment: Continue Aspirin, Plavix, and Atorvastatin. (7) Elevated TSH Current Visit: Yes Comment: Normal FT4. No treatment needed. (8) DVT prophylaxis Current Visit: No Comment: SQ heparin. Status and Disposition: Change inpatient for planned placement
[2016-09-28] MEDS: Nystatin TOP POWDER* 15 GM BTL TOPICAL SCH ×2 (13:06→19:47)
[2016-09-28] MEDS: Atorvastatin* 20 MG TAB PO SCH (19:46)
[2016-09-28] MEDS: cloNIDine TAB* 0.1 MG PO SCH (19:46)
[2016-09-28] MEDS: Acetaminophen TAB* 325 MG PO PRN (19:46)
[2016-09-28] MEDS: Amitriptyline TAB* 25 MG PO SCH (19:47)
[2016-09-29] MEDS: Heparin VIAL(*) 5000 UNITS/ML VIAL (FIVE THOUSAND) SUBCUT SCH ×4 (05:37→22:49)
[2016-09-29] MEDS: Acetaminophen TAB* 325 MG PO PRN ×2 (06:13→19:35)
[2016-09-29 06:42] LABS: BUN/Creatinine Ratio 28.8 (8-20); EGFR African American 28.9 (>60); EGFR Non-African American 22.5 (>60); Potassium 4.4 mmol/L (3.5-5.0)
[2016-09-29] MEDS: Cephalexin CAP* 500 MG PO SCH ×4 (08:37→22:04)
[2016-09-29] MEDS: Clopidogrel TAB* 75 MG PO SCH (08:37)
[2016-09-29] MEDS: Metoprolol Tartrate TAB* 100 MG TAB PO SCH ×2 (08:37→22:04)
[2016-09-29] MEDS: Aspirin EC Low Dose* 81 MG TAB.EC PO SCH (08:37)
[2016-09-29] MEDS: Calcium Carbonate TAB* 1250 MG (CALCIUM 500 MG) PO SCH ×3 (08:38→19:35)
[2016-09-29] MEDS: Docusate CAP* 100 MG PO SCH ×2 (08:38→19:36)
[2016-09-29] MEDS: Insulin LISPRO* 1 UNITS UNIT SUBCUT SCH ×3 (08:40→17:33)
[2016-09-29] MEDS: Nystatin TOP POWDER* 15 GM BTL TOPICAL SCH ×3 (08:42→21:00)
[2016-09-29] MEDS: Bacitracin OINTMENT* 1 TUBE TOPICAL SCH ×2 (08:42→19:30)
--- NOTE | 2016-09-29 14:53 | PN ---
Subjective Date of Service: 09/29/16 Interval History: Patient seen this morning. No complaints other than difficulty sleeping overnight. No acute issues with foot. Family History: Unchanged from Admission Social History: Unchanged from Admission Past Medical History: Unchanged from Admission Objective Active Medications: Acetaminophen (Tylenol Tab*) 650 mg PO Q4H PRN Albuterol (Ventolin Hfa Inhaler*) 1 puff INH Q4H PRN Amitriptyline HCl (Elavil Tab*) 25 mg PO BEDTIME ASHER Aspirin (Aspirin Ec Low Dose*) 81 mg PO DAILY ASHER Atorvastatin Calcium (Lipitor*) 20 mg PO BEDTIME ASHER Bacitracin (Bacitracin Ointment*) 1 applic TOPICAL DAILY ASHER Bisacodyl (Dulcolax Ec Tab*) 10 mg PO DAILY PRN Calcium Carbonate (Calcium Carbonate Tab*) 1,250 mg PO TID ASHER Cephalexin HCl (Keflex Cap*) 500 mg PO QID ASHER Clonidine HCl (Catapres Tab*) 0.1 mg PO BEDTIME ASHER Clopidogrel Bisulfate (Plavix Tab*) 75 mg PO DAILY ASHER Dextrose (D50w Syringe 50 Ml*) 12.5 gm IV PUSH .FOR FS < 60 - SS PRN Docusate Sodium (Colace Cap*) 200 mg PO BID ASHER Heparin Sodium (Porcine) (Heparin Vial(*)) 5,000 units SUBCUT Q8HR ASHRE Insulin Human Lispro (Humalog*) 0 units SUBCUT AC ASHER Metoprolol Tartrate (Lopressor Tab*) 100 mg PO BID ASHER Nystatin (Nystatin Top Powder*) 1 applic TOPICAL TID ASHER Polyethylene Glycol/Electrolytes (Miralax*) 17 gm PO DAILY PRN Vital Signs 09/28/16 09/28/16 09/28/16 15:35 20:00 23:41 Temperature 97.9 F 98.1 F 98.1 F Pulse Rate 68 74 64 Respiratory 16 18 20 Rate Blood Pressure 153/41 135/38 (mmHg) O2 Sat by Pulse 91 90 95 Oximetry 09/29/16 09/29/16 09/29/16 03:42 08:00 08:08 Temperature 97.8 F 97.4 F Pulse Rate 60 65 Respiratory 16 16 18 Rate Blood Pressure 134/44 136/42 (mmHg) O2 Sat by Pulse 94 94 Oximetry Oxygen Devices in Use Now: None Appearance: Middle-aged, super-morbidly obese, F laying in bed in NAD Eyes: No Scleral Icterus Ears/Nose/Mouth/Throat: Mucous Membranes Moist Neck: NL Appearance and Movements; NL JVP Respiratory: Symmetrical Chest Expansion and Respiratory Effort, Clear to Auscultation Cardiovascular: NL Sounds; No Murmurs; No JVD, RRR Abdominal: - - Obese, soft, NTND, BS+ Skin: - - L foot with dressing in place, did not take down Result Diagrams: 09/27/16 19:55 09/29/16 05:24 Additional Lab and Data: Lab Results 09/27/16 09/27/16 09/27/16 Range/Units 19:55 19:55 19:55 WBC 9.0 (3.5-10.8) 10^3/ul RBC 3.07 L (4.0-5.4) 10^6/ul Hgb 9.7 L (12.0-16.0) g/dl Hct 31 L (35-47) % MCV 101 H (80-97) fL MCH 32 H (27-31) pg MCHC 32 (31-36) g/dl RDW 18 H (10.5-15) % Plt Count 260 (150-450) 10^3/ul MPV 8 (7.4-10.4) um3 Neut % (Auto) 73.3 (38-83) % Lymph % (Auto) 9.6 L (25-47) % [place] % (Auto) 10.1 H (1-9) % Eos % (Auto) 5.8 (0-6) % Baso % (Auto) 1.2 (0-2) % Absolute Neuts (auto) 6.6 (1.5-7.7) 10^3/ul Absolute Lymphs (auto) 0.9 L (1.0-4.8) 10^3/ul Absolute Monos (auto) 0.9 H (0-0.8) 10^3/ul Absolute Eos (auto) 0.5 (0-0.6) 10^3/ul Absolute Basos (auto) 0.1 (0-0.2) 10^3/ul Absolute Nucleated RBC 0.01 10^3/ul Nucleated RBC % 0.1 Sodium 135 (133-145) mmol/L Potassium 4.5 (3.5-5.0) mmol/L Chloride 101 (101-111) mmol/L Carbon Dioxide 30 (22-32) mmol/L Anion Gap 4 (2-11) mmol/L BUN 55 H (6-24) mg/dL Creatinine 2.03 H (0.51-0.95) mg/dL Est GFR ( Amer) 32.7 (>60) Est GFR (Non-Af Amer) 25.4 (>60) BUN/Creatinine Ratio 27.1 H (8-20) Glucose 164 H (70-100) mg/dL Lactic Acid 0.9 (0.5-2.0) mmol/L Calcium 9.4 (8.6-10.3) mg/dL Magnesium 1.3 L (1.9-2.7) mg/dL Total Bilirubin 0.50 (0.2-1.0) mg/dL AST 18 (13-39) U/L ALT 14 (7-52) U/L Alkaline Phosphatase 103 (34-104) U/L Troponin I 0.03 (<0.04) ng/mL Total Protein 6.7 (6.4-8.9) g/dL Albumin 3.4 (3.2-5.2) g/dL Globulin 3.3 (2-4) g/dL Albumin/Globulin Ratio 1.0 (1-3) TSH Pending Assess/Plan/Problems-Billing Assessment: Mechanical fall in a 56 yo F with hx of recent L great toe amputation, HTN, super-morbid obesity, HLD, DM, CKD, COPD who signed out of [facility] the same day - Patient Problems (1) Fall Current Visit: Yes Comment: Related to incomplete recovery at rehab, leaving AMA too early. Continue PT, will plan to send back to [facility] on Friday (2) Diabetes Current Visit: No Comment: Last HbA1c was 6.9%. Continue Lispro SS. (3) HTN (hypertension) Current Visit: No Comment: Continue Metoprolol and Clonidine. 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 Bumped up with Torsemide, hold for now (5) Amputated great toe of left foot Current Visit: Yes Comment: Continue oral ABx. (6) PVD (peripheral vascular disease) Current Visit: No Comment: Continue Aspirin, Plavix, and Atorvastatin. (7) Elevated TSH Current Visit: Yes Comment: Normal FT4. No treatment needed. (8) DVT prophylaxis Current Visit: No Comment: SQ heparin. Status and Disposition: Inpatient for planned placement
[2016-09-29] MEDS: Amitriptyline TAB* 25 MG PO SCH (22:04)
[2016-09-29] MEDS: Atorvastatin* 20 MG TAB PO SCH (22:04)
[2016-09-29] MEDS: cloNIDine TAB* 0.1 MG PO SCH (22:08)
[2016-09-30] MEDS: Heparin VIAL(*) 5000 UNITS/ML VIAL (FIVE THOUSAND) SUBCUT SCH (06:33)
[2016-09-30] MEDS: Insulin LISPRO* 1 UNITS UNIT SUBCUT SCH ×2 (09:06→13:40)
[2016-09-30] MEDS: Aspirin EC Low Dose* 81 MG TAB.EC PO SCH (09:49)
[2016-09-30] MEDS: Metoprolol Tartrate TAB* 100 MG TAB PO SCH (09:50)
[2016-09-30] MEDS: Docusate CAP* 100 MG PO SCH ×2 (09:50→09:54)
[2016-09-30] MEDS: Cephalexin CAP* 500 MG PO SCH ×2 (09:50→13:41)
[2016-09-30] MEDS: Calcium Carbonate TAB* 1250 MG (CALCIUM 500 MG) PO SCH ×2 (09:50→13:41)
[2016-09-30] MEDS: Clopidogrel TAB* 75 MG PO SCH (09:50)
[2016-09-30 09:51] VITALS: BP 143/44
[2016-09-30] MEDS: Nystatin TOP POWDER* 15 GM BTL TOPICAL SCH (09:51)
--- NOTE | 2016-09-30 10:58 | DCNOTE ---
Patient seen this morning. No new complaints. On exam, RRR, s1 and s2 present, no m/g/r, abd obese, soft, NTND, BS+, L foot with dressing in place. Plan to discharge back to [facility] today
--- NOTE | 2016-09-30 11:53 | DS ---
DATE OF ADMISSION: 09/27/2016. DATE OF DISCHARGE: 09/30/2016. PRINCIPAL DISCHARGE DIAGNOSIS: Fall. SECONDARY DIAGNOSES: Recent left hallux osteomyelitis with amputation, chronic left hip pain, peripheral vascular disease, hyperlipidemia, morbid obesity, type 2 diabetes, hypertension, CKD 4, COPD. DISCHARGE MEDICATION REGIMEN: 1. Percocet 5/325 one to two tablets by mouth every 4 hours as needed for pain. 2. Clonidine 0.1 mg by mouth at bedtime. 3. MiraLax 17 gm by mouth daily as needed for constipation. 4. Nystatin one application topical 3 times daily. 5. Metoprolol Tartrate 100 mg by mouth 2 times daily. 6. Lispro sliding scale insulin. 7. Heparin subcu 5000 units subcutaneous every 8 hours. 8. Vitamin D2 50,000 units by mouth weekly. 9. Colace 200 mg by mouth 2 times daily. 10. Plavix 75 mg by mouth daily. 11. Calcium carbonate 1250 mg by mouth 3 times daily. 12. Dulcolax 10 mg by mouth daily as needed for constipation. 13. Bacitracin one application topical daily. 14. Atorvastatin 20 mg by mouth at bedtime. 15. Aspirin 81 mg by mouth daily. 16. Amitriptyline 25 mg by mouth at bedtime. 17. Albuterol one puff inhaled every 4 hours as needed for shortness of breath or wheezing. 18. Tylenol 650 mg by mouth every 4 hours as needed for pain. 19. Keflex 500 mg by mouth 4 times daily. HISTORY OF PRESENT ILLNESS AND HOSPITAL SUMMARY: Please see the full history and physical by Torri Kauffman NP for full details. Briefly, Ms. Mantilla is a 56- year- old female with a past medical history as above who presented to the hospital after she signed out against medical advice from [facility] where she was placed for rehabilitation after a left toe amputation. On returning home, the patient fell and was unable to get up. She came back to the hospital. Her antibiotics were continued during the hospitalization and the plan is for her to continue oral antibiotics through 10/10/2016. No other changes were made to her medications here in the hospital. She will be discharged back to [facility] for further rehabilitation. Total time spent on this discharge was 35 minutes. This is a summary of the hospitalization, please see the full medical record for further details. [id number]/[facility] #: [id number] [facility]
[2016-09-30] MEDS: Bacitracin OINTMENT* 1 TUBE TOPICAL SCH (13:42)
== END 2016-09-30 14:15 | DRG 948 ==
LOC: ED 17:41 → MED 20:51 → OBSVTOIN 09-28 11:31
PROVIDERS: ADMIT Internal Medicine; ATTEND Hospitalist
DX: R53.1 Weakness (principal); E11.22 Type 2 diabetes mellitus with diabetic chronic kidney disease; N18.4 Chronic kidney disease, stage 4 (severe); M86.8X7 Other osteomyelitis, ankle and foot; E11.51 Type 2 diabetes mellitus with diabetic peripheral angiopathy without gangrene; Z68.44 Body mass index [BMI] 60.0-69.9, adult; W08.XXXA Fall from other furniture, initial encounter; Y92.008 Other place in unspecified non-institutional (private) residence as the place of occurrence of the external cause; E11.69 Type 2 diabetes mellitus with other specified complication; M25.552 Pain in left hip; I12.9 Hypertensive chronic kidney disease with stage 1 through stage 4 chronic kidney disease, or unspecified chronic kidney disease; E78.5 Hyperlipidemia, unspecified; E66.01 Morbid (severe) obesity due to excess calories; J44.9 Chronic obstructive pulmonary disease, unspecified; Z89.432 Acquired absence of left foot; Z79.84 Long term (current) use of oral hypoglycemic drugs; Z79.1 Long term (current) use of non-steroidal anti-inflammatories (NSAID); Z79.82 Long term (current) use of aspirin; Z79.891 Long term (current) use of opiate analgesic; Z79.899 Other long term (current) drug therapy; Z88.8 Allergy status to other drugs, medicaments and biological substances; Z80.8 Family history of malignant neoplasm of other organs or systems; Z82.49 Family history of ischemic heart disease and other diseases of the circulatory system; Z87.891 Personal history of nicotine dependence
CPT/HCPCS: 36415; 80048; 80053; 83605; 83735; 84439; 84443; 84484; 85025; 93005; 99213; A9270-GY; G0463; G8978-GP-CK; G8979-GP-CI; J1644; J3475

== ENCOUNTER 2016-10-11 17:14 | Observation (INO) | payer BC, MEDICARE ==
[2016-10-11] MEDS ORDERED: Magnesium Sulfate 2 GM IV* 2 GM/50 ML BAG IVPB ONE (17:43)
[2016-10-11] MEDS ORDERED: NS 0.9% 1000 ML* 250 ML IV ONE (17:43)
[2016-10-11 18:29] LABS: Hematocrit 28 % (35-47); Hemoglobin 8.9 g/dl (12.0-16.0); Mean Corpuscular HGB Conc 32 g/dl (31-36); Mean Corpuscular Hemoglobin 32 pg (27-31); Mean Corpuscular Volume 99 fL (80-97); Mean Platelet Volume 7 um3 (7.4-10.4); Red Blood Count 2.79 10^6/ul (4.0-5.4); Red Cell Distribution Width 17 % (10.5-15); White Blood Count 10.1 10^3/ul (3.5-10.8)
[2016-10-11 18:54] LABS: ALT 9 U/L (7-52); AST 14 U/L (13-39); Albumin 3.4 g/dL (3.2-5.2); Alkaline Phosphatase 96 U/L (34-104); BUN/Creatinine Ratio 19.6 (8-20); Blood Urea Nitrogen 54 mg/dL (6-24); CO2 Carbon Dioxide 35 mmol/L (22-32); Chloride 100 mmol/L (101-111); EGFR African American 22.9 (>60); EGFR Non-African American 17.8 (>60); Globulin 3.5 g/dL (2-4); Glucose 141 mg/dL (70-100); Magnesium 1.5 mg/dL (1.9-2.7); Potassium 4.7 mmol/L (3.5-5.0); Sodium 135 mmol/L (133-145); Total Protein 6.9 g/dL (6.4-8.9)
[2016-10-11 18:58] LABS: Calcium 13.5 mg/dL (8.6-10.3)
--- NOTE | 2016-10-11 20:11 | ED ---
Adriana Smith Alfonso scribed for Tia Quarles MD on 10/11/16 at 1745 . Complex/Multi-Sys Presentation - HPI Summary HPI Summary: This patient is a 56 year old F presenting from [facility] to [facility] with a chief complaint of abnormal labs she noted at 0830 this morning. Symptoms aggravated by nothing. Symptoms alleviated by nothing. Patient reports SOB ( baseline). She is at [facility] s/p a toe amputation. She is currently NC O2. She is not on NC O2 at home. She denies PMHx of CVA and NE. PMHx of DM, kidney disease, HTN and COPD. - History Of Current Complaint Chief Complaint: EDGeneral Time Seen by Provider: 10/11/16 17:21 Hx Obtained From: Patient Onset/Duration: Sudden Onset, Lasting Hours - 0830 this morning., Still Present Timing: Constant Severity Currently: Mild Severity Initially: Mild Aggravating Factor(s): Nothing Alleviating Factor(s): Nothing Associated Signs And Symptoms: Positive: Other - Patient reports SOB (baseline). - Allergies/Home Medications Allergies/Adverse Reactions: Allergies Allergy/AdvReac Type Severity Reaction Status Date / Time Lisinopril Allergy Dizziness Verified 09/02/16 08:27 Home Medications: Home Medications Docusate CAP* [Colace Cap*] 200 mg PO Q12HR PRN 10/11/16 [History Confirmed ] Torsemide TAB* [Demadex*] 40 mg PO QAM 10/11/16 [History Confirmed 10/11/16] PMH/Surg Hx/FS Hx/Imm Hx Endocrine/Hematology History: Reports: Hx Diabetes - For about 23 years. Denies: Hx Anticoagulant Therapy, Hx Blood Disorders, Hx Blood Transfusions, Hx Bone Marrow Disease, Hx Systemic Lupus Erythematosus, Hx Sickle Cell Disease , Hx Thyroid Disease, Hx Anemia, Hx Unexplained Bleeding, Other Endocrine/ Hematological Disorders Cardiovascular History: Reports: Hx Hypertension - x 5-6 years Denies: Hx Aneurysm, Hx Angina, Hx Angioplasty, Hx Auto Implanted Cardiovert Defib, Hx Cardiac Arrest, Hx Cardiomegaly, Hx Congenital Heart Disease, Hx Congestive Heart Failure, Hx Coronary Artery Disease, Hx Deep Vein Thrombosis, Hx Hypercholesterolemia, Hx Hypotension, Hx Myocardial Infarction, Hx Pacemaker/ ICD, Hx Peripheral Vascular Disease, Hx Rheumatic Fever, Hx Syncope, Hx Valvular Heart Disease, Other Cardiovascular Problems/Disorders Respiratory History: Reports: Hx Chronic Obstructive Pulmonary Disease (COPD), Hx Pneumonia - ~ 5x, Hx Sleep Apnea - Patient denies use of CPAP/BIPAP Denies: Hx Asthma, Hx Chronic Bronchitis, Hx Cystic Fibrosis, Hx Lung Cancer , Hx Pleural Effusion, Hx Pulmonary Edema, Hx Pulmonary Embolism, Hx Seasonal Allergies, Other Respiratory Problems/Disorders - copd GI History: Denies: Hx Cirrhosis, Hx Crohn's Disease, Hx Gall Bladder Disease, Hx Gastroesophageal Reflux Disease, Hx Gastrointestinal Bleed, Hx Hiatal Hernia, Hx Irritable Bowel, Hx Jaundice, Hx Ulcer, Hx Urosepsis, Other GI Disorders History: Reports: Hx Chronic Renal Failure - not per patient, per H+P, Hx Renal Disease - DIALYSIS PATIENT for about 2 weeks 3 years ago. She has "weak kidneys." Denies: Hx Acute Renal Failure - current dx, Hx Benign Prostatic Hyperplasia , Hx Dialysis, Hx Kidney Infection, Hx Kidney Stones, Other Problems/ Disorders Musculoskeletal History: Reports: Hx Arthritis, Hx Back Problems, Hx Scoliosis, Other Musculoskeletal History - Degenerative Disc Disease Denies: Hx Bursitis, Hx Congenital Bone Abnormalities, Hx Fibromyalgia, Hx Gout, Hx Orthopedic Injury, Hx Osteoporosis, Hx Tendonitis Sensory History: Reports: Hx Contacts or Glasses Denies: Hx Cataracts, Hx Eye Injury, Hx Eye Prosthesis, Hx Glaucoma, Hx Macular Degeneration, Hx Vision Problem, Hx Deafness, Hx Hearing Aid, Hx Hearing Problem, Other Sensory Impairments Opthamlomology History: Reports: Hx Contacts or Glasses Denies: Hx Cataracts, Hx Eye Injury, Hx Eye Prosthesis, Hx Glaucoma, Hx Macular Degeneration, Hx Vision Problem, Other Sensory Impairments Neurological History: Denies: Hx Dementia, Hx Seizures Psychiatric History: Denies: Hx Anxiety, Hx Depression, Hx Panic Disorder, Hx Schizophrenia, Hx Bipolar Disorder, Hx Substance Abuse - Cancer History Hx Chemotherapy: No - Surgical History Surgery Procedure, Year, and Place: csection ~20 yrs ago at [facility] Hx Anesthesia Reactions: No Infectious Disease History: No Infectious Disease History: Denies: Hx Clostridium Difficile, Hx Hepatitis, Hx Human Immunodeficiency Virus (HIV), Hx of Known/Suspected MRSA, Hx Shingles, Hx Tuberculosis, Hx Known/ Suspected VRE, Hx Known/Suspected VRSA, History Other Infectious Disease, Traveled Outside the [place] in Last 30 Days - Family History Known Family History: Positive: Cardiac Disease, Hypertension - Father has "disease." Negative: Renal Disease - Social History Alcohol Use: None Hx Substance Use: No Substance Use Type: Reports: None Hx Tobacco Use: Yes Smoking Status (MU): Former Smoker Review of Systems Positive: Other - "abnormal labs" Positive: Shortness Of Breath - baseline All Other Systems Reviewed And Are Negative: Yes Physical Exam Triage Information Reviewed: Yes Vital Signs On Initial Exam: Initial Vitals Temp Pulse Resp BP Pulse Ox 97.7 F 88 24 219/97 97 10/11/16 17:26 10/11/16 17:26 10/11/16 17:26 10/11/16 17:26 10/11/16 17:26 Vital Signs Reviewed: Yes Appearance: Positive: Well-Appearing, No Pain Distress Skin: Positive: Skin Color Reflects Adequate Perfusion, Dry Eyes: Positive: EOMI, PEGGY ENT: Positive: Pharynx normal, TMs normal Neck: Positive: Supple, Nontender Respiratory/Lung Sounds: Positive: Clear to Auscultation, Decreased Breath Sounds. Negative: Rales, Rhonchi, Wheezes Cardiovascular: Positive: RRR, Other - No gallop. Negative: Murmur, Rub Abdomen Description: Positive: Nontender, Soft, Other: - No rebound.. Negative : Distended, Guarding Bowel Sounds: Positive: Present Musculoskeletal: Positive: Edema Left - To thighs, Edema Right - To thighs, Other - Left foot is bandaged. Neurological: Positive: Sensory/Motor Intact, Alert, Oriented to Person Place, Time, CN Intact II-III Psychiatric: Positive: Affect/Mood Appropriate Diagnostics - Vital Signs Vital Signs Temp Pulse Resp BP Pulse Ox 10/11/16 17:26 97.7 F 88 24 219/97 97 - Laboratory Lab Results: Lab Results 10/11/16 10/11/16 10/11/16 Range/Units 18:15 18:15 19:55 WBC 10.1 (3.5-10.8) 10^3/ul RBC 2.79 L (4.0-5.4) 10^6/ul Hgb 8.9 L (12.0-16.0) g/dl Hct 28 L (35-47) % MCV 99 H (80-97) fL MCH 32 H (27-31) pg MCHC 32 (31-36) g/dl RDW 17 H (10.5-15) % Plt Count 297 (150-450) 10^3/ul MPV 7 L (7.4-10.4) um3 Neut % (Auto) 71.0 (38-83) % Lymph % (Auto) 9.7 L (25-47) % [place] % (Auto) 7.2 (1-9) % Eos % (Auto) 10.9 H (0-6) % Baso % (Auto) 1.2 (0-2) % Absolute Neuts (auto) 7.2 (1.5-7.7) 10^3/ul Absolute Lymphs (auto) 1.0 (1.0-4.8) 10^3/ul Absolute Monos (auto) 0.7 (0-0.8) 10^3/ul Absolute Eos (auto) 1.1 H (0-0.6) 10^3/ul Absolute Basos (auto) 0.1 (0-0.2) 10^3/ul Absolute Nucleated RBC 0.04 10^3/ul Nucleated RBC % 0.4 Sodium 135 (133-145) mmol/L Potassium 4.7 (3.5-5.0) mmol/L Chloride 100 L (101-111) mmol/L Carbon Dioxide 35 H (22-32) mmol/L BUN 54 H (6-24) mg/dL Creatinine 2.76 H (0.51-0.95) mg/dL Est GFR ( Amer) 22.9 (>60) Est GFR (Non-Af Amer) 17.8 (>60) BUN/Creatinine Ratio 19.6 (8-20) Glucose 141 H (70-100) mg/dL Calcium 13.5 H* (8.6-10.3) mg/dL Ionized Calcium 7.30 H* (4.65-5.28) mg/dL Magnesium 1.5 L (1.9-2.7) mg/dL Total Bilirubin 0.40 (0.2-1.0) mg/dL AST 14 (13-39) U/L ALT 9 (7-52) U/L Alkaline Phosphatase 96 (34-104) U/L Total Protein 6.9 (6.4-8.9) g/dL Albumin 3.4 (3.2-5.2) g/dL Globulin 3.5 (2-4) g/dL Albumin/Globulin Ratio 1.0 (1-3) Result Diagrams: 10/11/16 18:15 10/11/16 18:15 Lab Statement: Any lab studies that have been ordered have been reviewed, and results considered in the medical decision making process. - EKG 1828 Cardiac Rate: NL - BPM 91 EKG Rhythm: Sinus Rhythm EKG Interpretation: NSR. Non-specific T-wave changes. EKG Comparison: No Significant Change - 09/27/16 Complex Multi-Symp Course/Dx Course Of Treatment: 56 yo female here with elevated calcium and renal disease pt admitted by Dr. Malcolm - Diagnoses Provider Diagnoses: Hypercalcemia - Physician Notifications Discussed Care Of Patient With: Antonio Malcolm Time Discussed With Above Provider: 20:10 Instructed by Provider To: Other - Consulted Dr. Malcolm (hospitalist) who agrees to admit. Discharge - Discharge Plan Condition: Stable Disposition: ADMITTED TO [facility] Referrals: Miguelito Chambers MD [Primary Care Provider] - The documentation as recorded by the Adriana avalos Alfonso accurately reflects the service I personally performed and the decisions made by me, Tia Quarles MD.
[2016-10-11] MEDS ORDERED: Dextrose 50% Syringe 50 ML* 25 GM/50 ML SYRINGE IV PUSH PRN (21:23)
[2016-10-11] MEDS ORDERED: Acetaminophen TAB* 325 MG PO PRN (21:23)
[2016-10-11] MEDS ORDERED: Furosemide IV* 10 MG/ML VIAL (40 MG) IV SLOW PU ONE (21:23)
[2016-10-11] MEDS ORDERED: Calcitonin (Salmon) INJ* 200 UNITS/ML 2 ML VIAL SUBCUT ONE (21:24)
[2016-10-11] MEDS ORDERED: Polyethylene Glycol 3350* 17 GM PACKET PO PRN (21:27)
[2016-10-11] MEDS ORDERED: Albuterol HFA INHALER* 8 gm MDI INH PRN (21:27)
[2016-10-11] MEDS ORDERED: NS 0.9% 1000 ML* 1,000 ML IV SCH (21:30)
[2016-10-11 23:52] LABS: Calcium (PTH Intact) 13.1 mg/dL (8.6-10.3)
[2016-10-12] MEDS: Heparin VIAL(*) 5000 UNITS/ML VIAL (FIVE THOUSAND) SUBCUT SCH ×4 (00:11→21:44)
[2016-10-12] MEDS: oxyCODONE/Acetamin 5/325 MG* TAB PO PRN ×2 (00:14→12:47)
[2016-10-12] MEDS: Ondansetron INJ* 2 MG/ML VIAL IV PRN ×3 (00:49→12:43)
[2016-10-12] MEDS ORDERED: oxyCODONE/Acetamin 5/325 MG* TAB PO PRN (01:15)
--- NOTE | 2016-10-12 01:23 | HP ---
CC: Rosa Maria Birmingham NP; Dr. Beck from [facility] * HISTORY AND PHYSICAL: DATE OF ADMISSION: 10/11/16 PRIMARY CARE PROVIDER: Rosa Maria Birmingham NP and Dr. Beck from [facility]. ATTENDING PHYSICIAN WHILE IN THE HOSPITAL: Dr. Antonio Malcolm * (report dictated by David Jay NP) CHIEF COMPLAINT: Elevated calcium. HISTORY OF PRESENTING ILLNESS: Ms. Mantilla is a 56-year-old female patient. She has a history of osteomyelitis to the right foot, status post amputation, also carries a history of chronic left hip pain, PVD, hyperlipidemia, obesity, diabetes, hypertension, CKD stage IV and COPD. She comes into the ER today. She had routine followup labs done at [facility]. We were notified today that her calcium was 12.8 and she was directed to the hospital for further evaluation. The patient has remained asymptomatic. She is not having any signs of hypercalcemia at this point. Her mentation is good. She is awake and alert. She does not appear to be stuporous. She is denying any nausea or constipation. She denies having any weakness. She said that she is feeling well. She was referred here for correction of this. She actually got to the ER and her calcium was repeated and it was 13.5 and her ionized calcium was 7.3. Because of this, we were asked to evaluate for admission. PAST MEDICAL HISTORY: 1. Osteomyelitis. 2. Chronic left hip pain. 3. PVD. 4. Hyperlipidemia. 5. Obesity. 6. Diabetes. 7. Hypertension. 8. CKD stage 4. 9. COPD. PAST SURGICAL HISTORY: 1. She has had a . 2. She has had a stent to the left lower extremity. 3. She has had an amputation to the right foot. HOME MEDICATIONS: According to the [facility] document include: 1. Bisacodyl 10 mg p.r. daily as needed. 2. Calcium carbonate 1250 mg p.o. t.i.d. 3. Colace 200 mg p.o. every 12 hours as needed. 4. Ergocalciferol 50,000 units p.o. weekly. 5. Albuterol 1 puff every 4 hours as needed. 6. Amitriptyline 25 mg at bedtime. 7. Aspirin 81 mg daily. 8. Atorvastatin 20 mg daily. 9. Plavix 75 mg daily. 10. MiraLAX 17 g p.o. daily. 11. Torsemide 40 mg p.o. q.a.m. 12. Clonidine 0.1 mg p.o. at bedtime. 13. Oxycodone 2 tablets p.o. every 4 hours as needed. ALLERGIES TO MEDICATIONS: Include LISINOPRIL. FAMILY HISTORY: Mother had a history of pancreatic cancer. Father had a history of heart disease. SOCIAL HISTORY: She does not smoke. She is a former smoker. Surrogate decision maker is her . She is currently rehabbing at [facility]. REVIEW OF SYSTEMS: There is no documented fever. She denied having any significant weight change. There was no double vision. She denies having any ear discharge. There was no rhinorrhea. She denies having any sore throat. There was no thyroid enlargement. Denies having any chest pain. There was no orthopnea. There was no nocturnal dyspnea. She denies having any abdominal pain or any nausea or any constipation. She denies having any loss of consciousness. No pruritus and no skin ulcerations. Review of 14 systems completed, all others were negative. PHYSICAL EXAMINATION GENERAL: At this time, Ms. Mantilla is a 56-year-old female patient; she is morbidly obese. She is sitting in the ER stretcher. She does not appear to be in any acute distress. VITAL SIGNS: Blood pressure 170/90 with a pulse of 88, respirations 20, O2 sat 97%, temperature 97.7. HEENT: Head is atraumatic and normocephalic. Eyes: EOMs are intact. Sclerae anicteric and not pale. Throat: Oral mucosa appears to be moist. No oropharyngeal erythema. NECK: Supple. LUNGS: Clear to auscultation bilaterally. No wheezes, rales, or rhonchi. HEART: Sounds S1, S2. Regular rate and rhythm. No murmurs, rubs, or gallops. ABDOMEN: Soft, flat, nontender. Bowel sounds present. EXTREMITIES: Pulses 2+ throughout. She is able to move all 4 extremities with 5/5 strength. NEUROLOGICAL: The patient is awake, she is alert, oriented x3. Technical Sales Manager equal. Tongue midline. No gross focal deficits. SKIN: Grossly intact. LABORATORY DATA/DIAGNOSTIC STUDIES: Today revealed a WBC of 10.1, RBC of 2.79 , hemoglobin 8.9, hematocrit 28, platelet count of 297. Sodium was 135, potassium 4.7, chloride 100, bicarb 35, BUN 54, creatinine of 2.76, which appears to be at baseline. Glucose 141, calcium 13.5, ionized 7.3, mag 1.5. Total bili 0.4, AST 14, ALT 9, alk phos 96. An EKG that was obtained today, which revealed a normal sinus rhythm, rate of 91, no ST elevation. She did have flat T waves in V5 and V6. Old medical records were reviewed. Her last EF was 55% to 60%. ASSESSMENT AND PLAN: Ms. Mantilla is a 56-year-old female patient coming in today with complaints of hypercalcemia found on laboratory findings. She will be admitted under observation status for: 1. Hypercalcemia. I suspect this is related to the fact that she has been taking a supplementation. In addition of this, she also has chronic kidney disease. My plan is to stop the calcium supplementation. We will give her IV fluids at 150 an hour and I am going to give her 80 of Lasix. We will check her calcium at 2300 tonight. Also, we may give her some calcitonin. Because she is not symptomatic, I am going to hold off on giving her any bisphosphonates , but if the calcium does continue to rise despite my efforts, we will give her some Zometa or bisphosphonate to help bring this down and we will follow this closely and place her on telemetry. 2. Osteomyelitis. She did finish her antibiotics on the . She can follow in the outpatient setting with ID and her primary care providers. 3. Chronic left hip pain. Continue meds as prescribed. 4. Peripheral vascular disease. Continue her Plavix for the time being and she is also on statin therapy. 5. Hyperlipidemia. Continue statin. 6. Obesity. Continue with supportive care. 7. Diabetes. She will be on lispro sliding scale. 8. Hypertension. Continue meds as prescribed. 9. Chronic kidney disease stage 4. We will monitor her creatinine. She is stable. 10. Chronic obstructive pulmonary disease. Continue inhalers as prescribed. 11. DVT prophylaxis. She will be placed on heparin subcu as she is high risk for DVT. 12. Code status. Full code. 12. Fluids, electrolytes, and nutrition. She can have a consistent carb diet. TIME SPENT: On the admission was 60 minutes; greater than half the time was spent [id number] with the patient obtaining my history and physical; other half time was spent going over the plan of care with the patient and implementing the plan of care. I did discuss the plan of care with my attending physician, Dr. Malcolm, who agrees in agreement. DAVID JAY NP [id number]/[facility] #: [id number] XIMENA
[2016-10-12 05:08] LABS: Hematocrit 26 % (35-47); Hemoglobin 8.1 g/dl (12.0-16.0); Mean Corpuscular HGB Conc 32 g/dl (31-36); Mean Corpuscular Hemoglobin 32 pg (27-31); Mean Corpuscular Volume 100 fL (80-97); Mean Platelet Volume 7 um3 (7.4-10.4); Red Blood Count 2.58 10^6/ul (4.0-5.4); Red Cell Distribution Width 17 % (10.5-15); White Blood Count 12.1 10^3/ul (3.5-10.8)
[2016-10-12 05:18] LABS: BUN/Creatinine Ratio 20.1 (8-20); Calcium 12.7 mg/dL (8.6-10.3); EGFR African American 24.1 (>60); EGFR Non-African American 18.8 (>60); Potassium 5.3 mmol/L (3.5-5.0)
--- NOTE | 2016-10-12 07:40 | RAD ---
HISTORY: Shortness of breath COMPARISONS: May 08, 2016 VIEWS:1: Single frontal portable view of the chest at 9:59 PM FINDINGS: LINES AND TUBES: None. CARDIOMEDIASTINAL SILHOUETTE: The cardiac silhouette is enlarged. The cardiomediastinal silhouette is otherwise normal for portable technique. PLEURA: The costophrenic angles are sharp. No pleural abnormalities are noted. LUNG PARENCHYMA: There is a diffuse reticular pattern with indistinct pulmonary vessels. ABDOMEN: The upper abdomen is clear. There is no subphrenic gas. BONES AND SOFT TISSUES: No bone or soft tissue abnormalities are noted. IMPRESSION: CARDIOMEGALY WITH PULMONARY INTERSTITIAL EDEMA
[2016-10-12] MEDS: Aspirin EC Low Dose* 81 MG TAB.EC PO SCH (08:13)
[2016-10-12] MEDS: Torsemide TAB* 20 MG PO SCH (08:13)
[2016-10-12] MEDS: Insulin LISPRO* 1 UNITS UNIT SUBCUT SCH ×3 (08:13→17:06)
[2016-10-12] MEDS: Clopidogrel TAB* 75 MG PO SCH (08:13)
[2016-10-12] MEDS ORDERED: Calcitonin (Salmon) INJ* 200 UNITS/ML 2 ML VIAL SUBCUT ONE ×2 (10:00→11:00)
[2016-10-12] MEDS ORDERED: NS 0.9% 1000 ML* 1,000 ML IV SCH (11:15)
--- NOTE | 2016-10-12 11:17 | PN ---
Subjective Date of Service: 10/12/16 Interval History: Patient seen and examined at bedside. She is upset, stating that she is missing her father's visit today; plan for nursing to call Meg Cohn to direct patient's father to hospital instead. Denies CP, SOB, states "I feel fine, I want to go home." Family History: Unchanged from Admission Social History: Unchanged from Admission Past Medical History: Unchanged from Admission Objective Active Medications: Acetaminophen (Tylenol Tab*) 650 mg PO Q4H PRN PRN Reason: FEVER/PAIN Albuterol (Ventolin Hfa Inhaler*) 1 puff INH Q4H PRN PRN Reason: SOB/WHEEZING Amitriptyline HCl (Elavil Tab*) 25 mg PO BEDTIME [facility] Aspirin (Aspirin Ec Low Dose*) 81 mg PO DAILY [facility] Last Admin: 10/12/16 08:13 Dose: 81 mg Atorvastatin Calcium (Lipitor*) 20 mg PO BEDTIME [facility] Clonidine HCl (Catapres Tab*) 0.1 mg PO BEDTIME [facility] Clopidogrel Bisulfate (Plavix Tab*) 75 mg PO DAILY [facility] Last Admin: 10/12/16 08:13 Dose: 75 mg Dextrose (D50w Syringe 50 Ml*) 12.5 gm IV PUSH .FOR FS < 60 - SS PRN PRN Reason: FS < 60 Heparin Sodium (Porcine) (Heparin Vial(*)) 5,000 units SUBCUT Q8HR [facility] Last Admin: 10/12/16 05:38 Dose: Not Given Sodium Chloride (Ns 0.9% 1000 Ml*) 1,000 mls @ 150 mls/hr IV PER RATE [facility] Last Admin: 10/12/16 00:10 Dose: 150 mls/hr Sodium Chloride (Ns 0.9% 1000 Ml*) 1,000 mls @ 150 mls/hr IV PER RATE [facility] Stop: 10/12/16 17:54 Insulin Human Lispro (Humalog*) 0 units SUBCUT AC [facility] PRN Reason: Protocol Last Admin: 10/12/16 08:13 Dose: 3 units Ondansetron HCl (Zofran Inj*) 4 mg IV Q6H PRN PRN Reason: NAUSEA Last Admin: 10/12/16 06:29 Dose: 4 mg Oxycodone/Acetaminophen (Percocet 5/325 Tab*) 2 tab PO Q4H PRN PRN Reason: PAIN Last Admin: 10/12/16 00:14 Dose: 2 tab Oxycodone/Acetaminophen (Percocet 5/325 Tab*) 2 tab PO ONCE PRN PRN Reason: PAIN Last Admin: 10/12/16 01:31 Dose: 2 tab Polyethylene Glycol/Electrolytes (Miralax*) 17 gm PO DAILY PRN PRN Reason: CONSTIPATION Torsemide (Demadex*) 40 mg PO QAM [facility] Last Admin: 10/12/16 08:13 Dose: 40 mg Vital Signs 10/11/16 10/11/16 10/11/16 21:35 23:08 23:55 Temperature 97.5 F 97.6 F Pulse Rate 96 Respiratory 15 Rate Blood Pressure 170/90 156/53 (mmHg) O2 Sat by Pulse 93 Oximetry 10/12/16 10/12/16 10/12/16 00:14 01:31 02:14 Temperature Pulse Rate Respiratory 15 16 17 Rate Blood Pressure (mmHg) O2 Sat by Pulse Oximetry 10/12/16 10/12/16 10/12/16 03:31 07:39 08:00 Temperature Pulse Rate 96 Respiratory 17 18 16 Rate Blood Pressure 144/51 (mmHg) O2 Sat by Pulse 92 Oximetry Oxygen Devices in Use Now: Nasal Cannula Appearance: Female patient, lying in bed, withdrawn but not in acute distress Eyes: No Scleral Icterus Ears/Nose/Mouth/Throat: Mucous Membranes Moist Neck: NL Appearance and Movements; NL JVP Respiratory: Symmetrical Chest Expansion and Respiratory Effort, Clear to Auscultation Cardiovascular: NL Sounds; No Murmurs; No JVD, RRR Abdominal: NL Sounds; No Tenderness; No Distention Neurological: Alert and Oriented x 3, NL Muscle Strength and Tone Lines/Tubes/Other Access: Clean, Dry and Intact Peripheral IV Nutrition: Taking PO's Result Diagrams: 10/12/16 04:45 10/12/16 04:45 Additional Lab and Data: Lab Results 10/11/16 10/11/16 10/11/16 Range/Units 18:15 18:15 19:55 WBC 10.1 (3.5-10.8) 10^3/ul RBC 2.79 L (4.0-5.4) 10^6/ul Hgb 8.9 L (12.0-16.0) g/dl Hct 28 L (35-47) % MCV 99 H (80-97) fL MCH 32 H (27-31) pg MCHC 32 (31-36) g/dl RDW 17 H (10.5-15) % Plt Count 297 (150-450) 10^3/ul MPV 7 L (7.4-10.4) um3 Neut % (Auto) 71.0 (38-83) % Lymph % (Auto) 9.7 L (25-47) % [place] % (Auto) 7.2 (1-9) % Eos % (Auto) 10.9 H (0-6) % Baso % (Auto) 1.2 (0-2) % Absolute Neuts (auto) 7.2 (1.5-7.7) 10^3/ul Absolute Lymphs (auto) 1.0 (1.0-4.8) 10^3/ul Absolute Monos (auto) 0.7 (0-0.8) 10^3/ul Absolute Eos (auto) 1.1 H (0-0.6) 10^3/ul Absolute Basos (auto) 0.1 (0-0.2) 10^3/ul Absolute Nucleated RBC 0.04 10^3/ul Nucleated RBC % 0.4 Sodium 135 (133-145) mmol/L Potassium 4.7 (3.5-5.0) mmol/L Chloride 100 L (101-111) mmol/L Carbon Dioxide 35 H (22-32) mmol/L BUN 54 H (6-24) mg/dL Creatinine 2.76 H (0.51-0.95) mg/dL Est GFR ( Amer) 22.9 (>60) Est GFR (Non-Af Amer) 17.8 (>60) BUN/Creatinine Ratio 19.6 (8-20) Glucose 141 H (70-100) mg/dL Calcium 13.5 H* (8.6-10.3) mg/dL Ionized Calcium 7.30 H* (4.65-5.28) mg/dL Magnesium 1.5 L (1.9-2.7) mg/dL Total Bilirubin 0.40 (0.2-1.0) mg/dL AST 14 (13-39) U/L ALT 9 (7-52) U/L Alkaline Phosphatase 96 (34-104) U/L Total Protein 6.9 (6.4-8.9) g/dL Albumin 3.4 (3.2-5.2) g/dL Globulin 3.5 (2-4) g/dL Albumin/Globulin Ratio 1.0 (1-3) Assess/Plan/Problems-Billing Assessment: Ms. Mantilla is a 56 yo female who was referred to the ED on 10/11/16 with concern for iatrogenic hypercalcemia. - Patient Problems (1) Hypercalcemia Code(s): E83.52 - HYPERCALCEMIA Comment: Suspect secondary to calcium carbonate supplementation (1250 mg TID) Asymptomatic Mild improvement, but still significantly high after IVF, furosemide, calcitonin Plan to repeat calcitonin, additional liter IVF and furosemide Continue to trend (2) CKD stage 4 due to type 2 diabetes mellitus Code(s): E11.22 - TYPE 2 DIABETES MELLITUS W DIABETIC CHRONIC KIDNEY DISEASE; N18.4 - CHRONIC KIDNEY DISEASE, STAGE 4 (SEVERE) Comment: Creatinine mildly above baseline Suspect secondary to IV furosemide given Continue to monitor (3) Diabetes Current Visit: No Status: Acute Code(s): E11.9 - TYPE 2 DIABETES MELLITUS WITHOUT COMPLICATIONS SNOMED Code(s): 09956554 Comment: Controlled Continue Lispro SSI. (4) HTN (hypertension) Code(s): I10 - ESSENTIAL (PRIMARY) HYPERTENSION Comment: Hypertensive Continue home clonidine, torsemide. Resume home metoprolol tartrate 100 mg BID (5) COPD (chronic obstructive pulmonary disease) Code(s): J44.9 - CHRONIC OBSTRUCTIVE PULMONARY DISEASE, UNSPECIFIED Comment: Stable. Continue prn albuterol. (6) Osteomyelitis Code(s): M86.9 - OSTEOMYELITIS, UNSPECIFIED Comment: S/p left great toe amputation Patient has finished abx course on 10/10 Continue outpatient follow up (7) PVD (peripheral vascular disease) Code(s): I73.9 - PERIPHERAL VASCULAR DISEASE, UNSPECIFIED Comment: Continue aspirin, clopidogrel, and atorvastatin. (8) DVT prophylaxis Comment: SQ heparin (9) Full code status Code(s): Z78.9 - OTHER SPECIFIED HEALTH STATUS Status and Disposition: OBV admit. D/c to [facility] when medically stable
[2016-10-12] MEDS: Metoprolol Tartrate TAB* 100 MG TAB PO SCH ×2 (13:58→21:02)
[2016-10-12] MEDS ORDERED: PROCHLORPERAZINE INJ 5 MG/ML 2 ML VIAL IV PRN (17:34)
[2016-10-12] MEDS ORDERED: Furosemide IV* 10 MG/ML 2 ML VIAL (20 MG) IV SLOW PU ONE (18:00)
[2016-10-12] MEDS ORDERED: Amitriptyline TAB* 25 MG PO SCH (21:00)
[2016-10-12] MEDS ORDERED: Atorvastatin* 20 MG TAB PO SCH (21:00)
[2016-10-12] MEDS ORDERED: cloNIDine TAB* 0.1 MG PO SCH (21:00)
[2016-10-13] MEDS: Heparin VIAL(*) 5000 UNITS/ML VIAL (FIVE THOUSAND) SUBCUT SCH (06:02)
[2016-10-13 06:21] LABS: Hematocrit 26 % (35-47); Hemoglobin 8.1 g/dl (12.0-16.0); Mean Corpuscular HGB Conc 32 g/dl (31-36); Mean Corpuscular Hemoglobin 32 pg (27-31); Mean Corpuscular Volume 101 fL (80-97); Mean Platelet Volume 7 um3 (7.4-10.4); Red Blood Count 2.54 10^6/ul (4.0-5.4); Red Cell Distribution Width 17 % (10.5-15); White Blood Count 8.8 10^3/ul (3.5-10.8)
[2016-10-13 06:38] LABS: BUN/Creatinine Ratio 19.8 (8-20); Calcium 11.5 mg/dL (8.6-10.3); EGFR African American 24.8 (>60); EGFR Non-African American 19.3 (>60); Potassium 5.6 mmol/L (3.5-5.0)
[2016-10-13 07:46] VITALS: BP 113/42
[2016-10-13] MEDS: Torsemide TAB* 20 MG PO SCH (08:08)
[2016-10-13] MEDS: Metoprolol Tartrate TAB* 100 MG TAB PO SCH (08:08)
[2016-10-13] MEDS: Clopidogrel TAB* 75 MG PO SCH (08:08)
[2016-10-13] MEDS: Aspirin EC Low Dose* 81 MG TAB.EC PO SCH (08:08)
[2016-10-13] MEDS: Insulin LISPRO* 1 UNITS UNIT SUBCUT SCH ×2 (08:34→12:17)
--- NOTE | 2016-10-13 09:07 | PN ---
Subjective Date of Service: 10/13/16 Interval History: Patient seen and examined at bedside. She is very tearful, stating that she is tired of being in the hospital. Denies CP, SOB, n/v. States she feels fine. Refusing nursing treatments/assessments. Family History: Unchanged from Admission Social History: Unchanged from Admission Past Medical History: Unchanged from Admission Objective Active Medications: Acetaminophen (Tylenol Tab*) 650 mg PO Q4H PRN PRN Reason: FEVER/PAIN Last Admin: 10/12/16 12:17 Dose: 650 mg Albuterol (Ventolin Hfa Inhaler*) 1 puff INH Q4H PRN PRN Reason: SOB/WHEEZING Amitriptyline HCl (Elavil Tab*) 25 mg PO BEDTIME [facility] Last Admin: 10/12/16 21:02 Dose: 25 mg Aspirin (Aspirin Ec Low Dose*) 81 mg PO DAILY [facility] Last Admin: 10/13/16 08:08 Dose: 81 mg Atorvastatin Calcium (Lipitor*) 20 mg PO BEDTIME [facility] Last Admin: 10/12/16 21:02 Dose: 20 mg Clonidine HCl (Catapres Tab*) 0.1 mg PO BEDTIME [facility] Last Admin: 10/12/16 21:02 Dose: 0.1 mg Clopidogrel Bisulfate (Plavix Tab*) 75 mg PO DAILY [facility] Last Admin: 10/13/16 08:08 Dose: 75 mg Dextrose (D50w Syringe 50 Ml*) 12.5 gm IV PUSH .FOR FS < 60 - SS PRN PRN Reason: FS < 60 Heparin Sodium (Porcine) (Heparin Vial(*)) 5,000 units SUBCUT Q8HR [facility] Last Admin: 10/13/16 06:02 Dose: Not Given Sodium Chloride (Ns 0.9% 1000 Ml*) 1,000 mls @ 150 mls/hr IV PER RATE [facility] Last Admin: 10/12/16 00:10 Dose: 150 mls/hr Insulin Human Lispro (Humalog*) 0 units SUBCUT AC [facility] PRN Reason: Protocol Last Admin: 10/13/16 08:34 Dose: Not Given Metoprolol Tartrate (Lopressor Tab*) 100 mg PO BID [facility] Last Admin: 10/13/16 08:08 Dose: 100 mg Ondansetron HCl (Zofran Inj*) 4 mg IV Q6H PRN PRN Reason: NAUSEA Last Admin: 10/12/16 12:43 Dose: 4 mg Oxycodone/Acetaminophen (Percocet 5/325 Tab*) 2 tab PO Q4H PRN PRN Reason: PAIN Last Admin: 10/12/16 12:47 Dose: 2 tab Oxycodone/Acetaminophen (Percocet 5/325 Tab*) 2 tab PO ONCE PRN PRN Reason: PAIN Last Admin: 10/12/16 01:31 Dose: 2 tab Polyethylene Glycol/Electrolytes (Miralax*) 17 gm PO DAILY PRN PRN Reason: CONSTIPATION Prochlorperazine Edisylate (Compazine Inj*) 5 mg IV Q6H PRN PRN Reason: NAUSEA/VOMITING Last Admin: 10/12/16 17:54 Dose: 5 mg Torsemide (Demadex*) 40 mg PO QAM [facility] Last Admin: 10/13/16 08:08 Dose: 40 mg Vital Signs 10/12/16 10/12/16 10/12/16 11:32 12:47 14:47 Temperature Pulse Rate 100 Respiratory 18 18 16 Rate Blood Pressure 160/56 (mmHg) O2 Sat by Pulse 89 Oximetry 10/12/16 10/12/16 10/12/16 15:34 20:56 23:59 Temperature 98.1 F 98.5 F 98.5 F Pulse Rate 100 93 85 Respiratory 18 20 16 Rate Blood Pressure 154/54 148/60 121/61 (mmHg) O2 Sat by Pulse 91 94 93 Oximetry 10/13/16 10/13/16 04:11 07:45 Temperature 97.6 F 97.5 F Pulse Rate 73 68 Respiratory 18 16 Rate Blood Pressure 125/47 113/42 (mmHg) O2 Sat by Pulse 98 96 Oximetry Oxygen Devices in Use Now: Nasal Cannula Appearance: Female patient, lying in bed, tearful but in no acute distress Eyes: No Scleral Icterus Ears/Nose/Mouth/Throat: Mucous Membranes Moist Neck: NL Appearance and Movements; NL JVP Respiratory: Symmetrical Chest Expansion and Respiratory Effort, Clear to Auscultation Cardiovascular: NL Sounds; No Murmurs; No JVD, RRR Extremities: - - LLE dressing c/d/i with 2+ posterior tibial pulse Neurological: Alert and Oriented x 3, NL Muscle Strength and Tone Lines/Tubes/Other Access: Clean, Dry and Intact Peripheral IV Nutrition: Taking PO's Result Diagrams: 10/13/16 06:10 10/13/16 06:10 Additional Lab and Data: Lab Results 10/11/16 10/11/16 10/11/16 Range/Units 18:15 18:15 19:55 WBC 10.1 (3.5-10.8) 10^3/ul RBC 2.79 L (4.0-5.4) 10^6/ul Hgb 8.9 L (12.0-16.0) g/dl Hct 28 L (35-47) % MCV 99 H (80-97) fL MCH 32 H (27-31) pg MCHC 32 (31-36) g/dl RDW 17 H (10.5-15) % Plt Count 297 (150-450) 10^3/ul MPV 7 L (7.4-10.4) um3 Neut % (Auto) 71.0 (38-83) % Lymph % (Auto) 9.7 L (25-47) % [place] % (Auto) 7.2 (1-9) % Eos % (Auto) 10.9 H (0-6) % Baso % (Auto) 1.2 (0-2) % Absolute Neuts (auto) 7.2 (1.5-7.7) 10^3/ul Absolute Lymphs (auto) 1.0 (1.0-4.8) 10^3/ul Absolute Monos (auto) 0.7 (0-0.8) 10^3/ul Absolute Eos (auto) 1.1 H (0-0.6) 10^3/ul Absolute Basos (auto) 0.1 (0-0.2) 10^3/ul Absolute Nucleated RBC 0.04 10^3/ul Nucleated RBC % 0.4 Sodium 135 (133-145) mmol/L Potassium 4.7 (3.5-5.0) mmol/L Chloride 100 L (101-111) mmol/L Carbon Dioxide 35 H (22-32) mmol/L BUN 54 H (6-24) mg/dL Creatinine 2.76 H (0.51-0.95) mg/dL Est GFR ( Amer) 22.9 (>60) Est GFR (Non-Af Amer) 17.8 (>60) BUN/Creatinine Ratio 19.6 (8-20) Glucose 141 H (70-100) mg/dL Calcium 13.5 H* (8.6-10.3) mg/dL Ionized Calcium 7.30 H* (4.65-5.28) mg/dL Magnesium 1.5 L (1.9-2.7) mg/dL Total Bilirubin 0.40 (0.2-1.0) mg/dL AST 14 (13-39) U/L ALT 9 (7-52) U/L Alkaline Phosphatase 96 (34-104) U/L Total Protein 6.9 (6.4-8.9) g/dL Albumin 3.4 (3.2-5.2) g/dL Globulin 3.5 (2-4) g/dL Albumin/Globulin Ratio 1.0 (1-3) Assess/Plan/Problems-Billing Assessment: Ms. Mantilla is a 56 yo female who was referred to the ED on 10/11/16 with concern for iatrogenic hypercalcemia. - Patient Problems (1) Hypercalcemia Code(s): E83.52 - HYPERCALCEMIA Comment: Improving Suspect secondary to calcium carbonate supplementation (1250 mg TID) Asymptomatic Continue to hold Tums, plan for f/u BMP on Friday Resume calcium carbonate (given for CKD and metabolic acidosis) when appropriate (2) Hyperkalemia Code(s): E87.5 - HYPERKALEMIA Comment: Secondary to CKD Discussed low K+ diet Will give Kayexelate Follow-up BMP as outpatient (3) CKD stage 4 due to type 2 diabetes mellitus Code(s): E11.22 - TYPE 2 DIABETES MELLITUS W DIABETIC CHRONIC KIDNEY DISEASE; N18.4 - CHRONIC KIDNEY DISEASE, STAGE 4 (SEVERE) Comment: Creatinine mildly above baseline Suspect secondary to IV diuresis given Repeat BMP as outpatient (4) Diabetes Code(s): E11.9 - TYPE 2 DIABETES MELLITUS WITHOUT COMPLICATIONS Comment: Controlled Continue Lispro SSI. (5) HTN (hypertension) Code(s): I10 - ESSENTIAL (PRIMARY) HYPERTENSION Comment: Normotensive Continue home clonidine, torsemide, metoprolol (6) COPD (chronic obstructive pulmonary disease) Code(s): J44.9 - CHRONIC OBSTRUCTIVE PULMONARY DISEASE, UNSPECIFIED Comment: Stable. Continue prn albuterol Patient states she uses Advair at home, which we will continue (7) Osteomyelitis Code(s): M86.9 - OSTEOMYELITIS, UNSPECIFIED Comment: S/p left great toe amputation Patient has finished abx course on 10/10 Continue outpatient follow up (8) PVD (peripheral vascular disease) Code(s): I73.9 - PERIPHERAL VASCULAR DISEASE, UNSPECIFIED Comment: Continue aspirin, clopidogrel, and atorvastatin. (9) DVT prophylaxis Comment: SQ heparin (10) Full code status Code(s): Z78.9 - OTHER SPECIFIED HEALTH STATUS Status and Disposition: OBV admit. D/c to [facility] when medically stable
[2016-10-13] MEDS ORDERED: Sodium Polystyrene ORAL.SOL* 15 GM/60 ML BTL PO ONE ×2 (09:27)
[2016-10-13] MEDS ORDERED: Nystatin TOP POWDER* 15 GM BTL TOPICAL SCH (09:30)
[2016-10-13] MEDS ORDERED: Bacitracin OINTMENT* 1 TUBE TOPICAL SCH (09:30)
--- NOTE | 2016-10-13 10:54 | DS ---
CC: Dr. Miguelito Chambers; Rosa Maria Birmingham NP. * MEDICINE DISCHARGE SUMMARY: DATE OF ADMISSION: 10/11/16 DATE OF DISCHARGE: 10/13/16 PROVIDER: Lyla Meyer NP. ATTENDING PROVIDER: Dr. Ck Tsang * (as dictated by Lyla Meyer NP). PRIMARY CARE PROVIDER: Rosa Maria Birmingham NP; and Dr. Miguelito Chambers. PRIMARY DISCHARGE DIAGNOSES: 1. Hypercalcemia. 2. Hyperkalemia. 3. Evidence of yeast within the patient's abdominal folds. SECONDARY DISCHARGE DIAGNOSES: 1. Osteomyelitis. 2. Chronic left hip pain. 3. Peripheral vascular disease. 4. Hyperlipidemia. 5. Obesity. 6. Diabetes. 7. Hypertension. 8. Chronic kidney disease stage 4. 9. Chronic obstructive pulmonary disease. MEDICATIONS: Home medications at discharge: 1. Advair 1 puff inhaled b.i.d. 2. Torsemide 40 mg q.a.m. 3. MiraLAX 17 g daily p.r.n. 4. Percocet 5/325, 2 tabs q.4 hours p.r.n. 5. Vitamin D2, 82810 units weekly. 6. Docusate 200 mg q.12 hours p.r.n. 7. Clopidogrel 75 mg daily. 8. Clonidine 0.1 mg at bedtime. 9. Dulcolax 10 mg daily p.r.n. 10. Atorvastatin 20 mg at bedtime. 11. Aspirin 81 mg daily. 12. Amitriptyline 25 mg at bedtime. 13. Albuterol inhaler 1 puff inhaled q.4 hours p.r.n. 14. Acetaminophen 650 mg q.4 hours p.r.n. 15. Nystatin topical powder one application topical t.i.d. to affected area. 16. Metoprolol tartrate 100 mg b.i.d. 17. Bacitracin ointment 1 application topical b.i.d. to open areas in abdominal fold. HOSPITAL COURSE OF STAY: For full details, please refer to the H and P provided by David Jay NP, on 10/11/16. In summary, Ms. Mantilla is a 56- year-old female patient, who was recently hospitalized earlier in September with concern for osteomyelitis and is status post recent left great toe amputation secondary to osteomyelitis. During recent evaluation and followup labs, the patient was noted to have a calcium of 12.8, and she was directed to the hospital for further evaluation. The patient has been asymptomatic with the elevated calcium levels. She has maintained good mentation. Etiology of the hypercalcemia was thought to be iatrogenic, secondary to her calcium carbonate supplementation. The patient was previously on t.i.d. calcium carbonate to treat and buffer her kidneys as she previously did not tolerate Bicitra and had concern for metabolic acidosis back in August. Her calcium supplementation is currently on hold, and her levels are resolving. Here, in the hospital, she did receive 2 doses of calcitonin as well as IV fluids and additional diuresis to help resolve the calcium levels. The patient also showed concern for hyperkalemia, which I see has been a recurrent issue in the past. She did receive a dose of Kayexalate prior to discharge and there is a plan to follow up with a BMP this week to monitor her calcium and potassium levels, as well as her renal function. Prior to discharge, the patient's creatinine is slightly above baseline, which was likely secondary to IV furosemide given for the patient's hypercalcemia. Prior to discharge, again, the patient was asymptomatic. She is insistent on going back to [facility], stating that she does not want to be here in the hospital and that she feels fine. She is very frustrated that her rehab continues to be interrupted. She is declining anymore IVs or intervention at this time and would like to go back to [facility]. Again, the patient's calcium prior to discharge is now 11.5, her ionized calcium is 6.29. Orders are placed to have a repeat BMP on Friday as well as an ionized calcium drawn at that time. CONCERNS AT DISCHARGE: Ms. Mantilla will be discharged to [facility] on 10/13. OUTPATIENT FOLLOWUP NEEDS: Please have repeat BMP drawn on 10/16/16. DIET: Low potassium renal diet, consistent carbohydrate. ACTIVITY: As tolerated. CONDITION: Stable. DISPOSITION: To [facility]. TIME SPENT: Time spent on this discharge was approximately 40 minutes. Again, this is only a brief summary of the patient's hospital course of stay. For full details, please refer to the full medical record. If you have any questions or any further assistance, please feel free to contact me at . LYLA MEYER, ART LIBRARIAN [id number]/[facility] #: [id number] [facility] FACILITYAndi
== END 2016-10-13 13:15 ==
LOC: ED 17:14 → MEDTELE 21:16
PROVIDERS: ADMIT Hospitalist; ATTEND Internal Medicine
DX: E83.52 Hypercalcemia (principal); E87.5 Hyperkalemia; B37.2 Candidiasis of skin and nail; M86.9 Osteomyelitis, unspecified; G89.29 Other chronic pain; M25.552 Pain in left hip; E78.5 Hyperlipidemia, unspecified; E66.9 Obesity, unspecified; E11.9 Type 2 diabetes mellitus without complications; I12.9 Hypertensive chronic kidney disease with stage 1 through stage 4 chronic kidney disease, or unspecified chronic kidney disease; N18.4 Chronic kidney disease, stage 4 (severe); J44.9 Chronic obstructive pulmonary disease, unspecified; Z87.891 Personal history of nicotine dependence
CPT/HCPCS: 36415; 71010; 80048; 80053; 82310; 82330; 83735; 83970; 85025; 85610; 93005; 96365; 99285; A9270-GY; G0378; J0630; J0780; J1644; J1940; J2405; J3475